=== PATIENT | female | born 1960 | race Caucasian/White ===

== ENCOUNTER 2021-03-30 11:40 | Outpatient (REF) | payer MEDICARE, MEDICAID, SELFPAY ==
[2021-03-30 13:04] LABS: MANUAL DIFF FLAG NO
[2021-03-30 13:11] LABS: Glucose Urine UA NEG (NEG); Leukocyte Esterase Urine NEG (NEG); Nitrite Urine NEG (NEG); PH 5.5 (5.0-8.0); Specific Gravity - Urine >= 1.030 (1.005-1.025); Urine Blood NEG (NEG); Urine Ketones NEG (NEG); Urine Protein NEG (NEG-TRACE)
[2021-03-30 13:14] LABS: Appearance Urine CLEAR; Color Urine YELLOW
[2021-03-30 13:21] LABS: Basophils Percent Auto 0.6 % (0-2); Eosinophils Absolute Auto 0.3 X10*3/uL (0.0-0.4); Eosinophils Percent Auto 5.3 % (0-4); Hematocrit 38.4 % (37-47); Hemoglobin 12.3 g/dl (12.0-16.0); Imm Gran Abs Auto 0.01 X10*3/uL (0.00-0.03); Imm Gran Pct Auto 0.2 % (0.0-0.4); Lymphocytes Absolute Auto 2.1 X10*3/uL (1.2-4.9); Lymphocytes Percent Auto 33.5 % (20-40); Mean Corpuscular Hemoglobin 29.8 pg (27.0-33.0); Mean Platelet Volume 10.9 fL (9.4-12.3); Monocytes Absolute Auto 0.6 X10*3/uL (0.1-1.2); Monocytes Percent Auto 10.2 % (2-11); Neutrophils Absolute Auto 3.2 X10*3/uL (2.0-8.3); Neutrophils Percent Auto 50.2 % (45-73); Platelet Count 280 X10*3/uL (160-400); Red Blood Count 4.13 X10*6/uL (4.20-5.50); Red Cell Distribution Width 13.1 % (11.0-16.0); White Blood Count 6.3 X10*3/uL (4.8-10.8)
[2021-03-30 13:31] LABS: Alanine Aminotransferase 17 U/L (0-31); Albumin Level 4.2 g/dL (3.5-5.0); Alkaline Phosphatase 61 U/L (39-117); Anion Gap 12 (12-20); Aspartate Amino Transferase 20 U/L (5-31); Bilirubin Total 0.3 mg/dL (0.0-1.0); Blood Urea Nitrogen 17 mg/dL (9-16); Calcium 9.4 mg/dL (8.4-10.2); Carbon Dioxide 28 mmol/L (22-29); Chloride 104 mmol/L (96-108); Cholesterol 190 mg/dL; Estimated Glomerular Filt Rate > 60; Glucose Random 88 mg/dL (60-115); HDL Cholesterol 64 mg/dL; LDL Cholesterol Calculated 109 mg/dl; Potassium 4.3 mmol/L (3.3-5.1); Sodium 140 mmol/L (135-145); Triglycerides 86 mg/dL
[2021-03-30 13:54] LABS: Free T4 (Free Thyroxine) 0.93 ng/dL (0.71-1.85); Thyroid Stimulating Hormone 1.51 uIU/mL (0.32-4.0); Vitamin D 25-OH Total 10.1 ng/mL (>30)
[2021-03-30 14:00] LABS: Vitamin B12 223 pg/mL (200-900)
== END 2021-03-30 11:41 | disposition home or self-care (01) ==
LOC: HO.LAB 11:40
PROVIDERS: PCP Internal Medicine; Visit Provider Internal Medicine
DX: I10 Essential (primary) hypertension (principal); E78.00 Pure hypercholesterolemia, unspecified; R30.0 Dysuria
CPT/HCPCS: 36415; 80053; 80061; 81003; 82306; 82607; 82746; 84439; 84443; 85025

== ENCOUNTER → 2021-07-26 12:53 | Outpatient (REF) | payer MEDICARE, MEDICAID, SELFPAY | LOC: HO.SL 12:53 | PROVIDERS: PCP Internal Medicine; Visit Provider Internal Medicine | DX: G47.33 Obstructive sleep apnea (adult) (pediatric) (principal) | CPT/HCPCS: 95806 ==

== ENCOUNTER 2021-09-27 11:20 | Outpatient (REF) | payer MEDICARE, MEDICAID, SELFPAY ==
--- NOTE | ~2021-09-27 | XR_ITS ---
EXAMINATION: XR KNEE, LEFT CLINICAL INFORMATION: Pain COMPARISON: Previous x-ray August 2013 TECHNIQUE: Four views of the left knee. FINDINGS: Bone alignment is normal. No fracture or dislocation is seen. There is mild medial femoral tibial joint space narrowing. There are osteophytes at the patellofemoral joint. There is a small joint effusion. XR/XR knee LT 2V IMPRESSION: Mild degenerative changes.
== END 2021-09-27 11:21 | disposition home or self-care (01) ==
LOC: HO.XRAY 11:20
PROVIDERS: Visit Provider Internal Medicine
DX: M25.562 Pain in left knee (principal)
CPT/HCPCS: 73560

== ENCOUNTER → 2021-10-19 09:41 | Outpatient (BNVA) | payer MEDICARE, MEDICAID, SELFPAY | PROVIDERS: PCP Internal Medicine; Visit Provider Physician Assistant | DX: M17.12 Unilateral primary osteoarthritis, left knee (principal) | CPT/HCPCS: 20610; 99202; J1040 ==

== ENCOUNTER 2021-10-24 09:54 | Outpatient (REF) | payer MEDICARE, MEDICAID, SELFPAY ==
--- NOTE | ~2021-10-24 | XR_ITS ---
EXAMINATION: XR WRIST, LEFT CLINICAL INFORMATION: Pain COMPARISON: None TECHNIQUE: 4 views of the left wrist. FINDINGS: The bones and soft tissues are normal. No fracture. Alignment is anatomic with normal joint spaces. No erosions or abnormal soft tissue calcifications. XR/XR wrist LT 2V IMPRESSION: Normal left wrist.
== END 2021-10-24 09:55 | disposition home or self-care (01) ==
LOC: HO.XRAY 09:54
PROVIDERS: PCP Internal Medicine; Visit Provider Internal Medicine
DX: M25.532 Pain in left wrist (principal)
CPT/HCPCS: 73100

== ENCOUNTER → 2021-11-02 09:54 | Outpatient (BNVA) | payer MEDICARE, MEDICAID, SELFPAY | PROVIDERS: PCP Internal Medicine; Visit Provider Internal Medicine | DX: G47.33 Obstructive sleep apnea (adult) (pediatric) (principal); J45.909 Unspecified asthma, uncomplicated; E66.01 Morbid (severe) obesity due to excess calories; Z68.43 Body mass index [BMI] 50.0-59.9, adult | CPT/HCPCS: 99202 ==

== ENCOUNTER → 2022-01-31 08:50 | Outpatient (BNVA) | payer MEDICARE, MEDICAID, SELFPAY | PROVIDERS: PCP Internal Medicine; Visit Provider Internal Medicine | DX: J45.909 Unspecified asthma, uncomplicated (principal); G47.33 Obstructive sleep apnea (adult) (pediatric); E66.01 Morbid (severe) obesity due to excess calories | CPT/HCPCS: 99212 ==

== ENCOUNTER 2022-02-01 11:53 | Outpatient (REF) | payer MEDICARE, MEDICAID, SELFPAY ==
--- NOTE | ~2022-02-01 | XR_ITS ---
EXAMINATION: XR LUMBOSACRAL SPINE CLINICAL INFORMATION: Pain COMPARISON: Previous x-ray October 2017 TECHNIQUE: Three views of the lumbosacral spine. FINDINGS: Bone alignment is normal. No fracture or dislocation is seen. There is degenerative spondylosis of the lower thoracic spine. There is degenerative disc disease at L4-L5 and L5-S1. There is lower lumbar spine facet arthritis. XR/XR lumbar spine 2-3V IMPRESSION: Degenerative changes.
[2022-02-01 14:14] LABS: Appearance Urine CLEAR; Color Urine YELLOW; Glucose Urine UA NEG (NEG); Leukocyte Esterase Urine NEG (NEG); Nitrite Urine NEG (NEG); PH 5.5 (5.0-8.0); Urine Blood NEG (NEG); Urine Ketones NEG (NEG); Urine Protein NEG (NEG-TRACE)
== END 2022-02-01 11:54 | disposition home or self-care (01) ==
LOC: HO.XRAY 11:53
PROVIDERS: PCP Internal Medicine; Visit Provider Internal Medicine
DX: M54.9 Dorsalgia, unspecified (principal); N39.0 Urinary tract infection, site not specified
CPT/HCPCS: 72100; 81003

== ENCOUNTER 2022-10-19 13:52 | Outpatient (REF) | payer MEDICARE, MEDICAID, SELFPAY ==
--- NOTE | ~2022-10-19 | XR_ITS ---
EXAMINATION: XR KNEE, LEFT CLINICAL INFORMATION: Pain COMPARISON: 09/27/2021 TECHNIQUE: Two views of the left knee. FINDINGS: No acute fracture or dislocation. There is narrowing of the lateral and patellofemoral compartments and tricompartmental osteophytosis as well as subchondral cystic changes. No large effusion. XR/XR knee LT 2V IMPRESSION: Moderate degenerative changes of the left knee joint.
== END 2022-10-19 13:53 | disposition home or self-care (01) ==
LOC: HO.XRAY 13:52
PROVIDERS: PCP Internal Medicine; Visit Provider Internal Medicine
DX: M25.562 Pain in left knee (principal)
CPT/HCPCS: 73560

== ENCOUNTER → 2022-12-14 10:16 | Outpatient (BNVA) | payer MEDICARE, MEDICAID, SELFPAY | PROVIDERS: PCP Internal Medicine; Visit Provider Physician Assistant | DX: M17.12 Unilateral primary osteoarthritis, left knee (principal) | CPT/HCPCS: 20610; 99212; J1040 ==

== ENCOUNTER 2023-05-25 07:34 | Outpatient (REF) | payer MEDICARE, MEDICAID, SELFPAY | END 2023-05-25 07:35 | disposition home or self-care (01) | LOC: HO.LAB 07:34 | PROVIDERS: PCP Internal Medicine; Visit Provider Internal Medicine | DX: E03.9 Hypothyroidism, unspecified (principal); E78.5 Hyperlipidemia, unspecified; N28.9 Disorder of kidney and ureter, unspecified; D64.9 Anemia, unspecified | CPT/HCPCS: 36415; 80053; 80061; 84443; 85025 ==

== ENCOUNTER 2023-08-28 10:53 | Outpatient (AMB) | payer MEDICARE, MEDICAID, SELFPAY ==
[2023-08-28 09:47] VITALS: BP 124/70; PULSE 71; O2SAT 98; BMI 44.2
--- NOTE | 2023-08-28 09:47 | MHC.PC.OV ---
Vital Signs 08/28/23 09:47 Height 5 ft 8 in Blood Pressure Location Lt brachial Position Sitting Pulse Source Pulse Oximeter Oxygen Delivery Method Room Air Intake Visit Reasons: 3 month f/u Allergies amoxicillin Allergy (Unknown, Verified 05/20/23 09:56) Nausea cephalexin [Keflex] Allergy (Unknown, Verified 05/20/23 09:56) stomach upset Codeine Allergy (Unknown, Uncoded 05/20/23 09:56) Dizziness shellfish Allergy (Unknown, Uncoded 05/20/23 09:56) hives Tobacco use date assessed: 05/20/23 [facility] Medical History Anxiety and depression Asthma Back pain Lumbar degenerative disc disease Morbid (severe) obesity due to excess calories Morbid obesity Obesity Obstructive sleep apnea MARIE (obstructive sleep apnea) Osteoarthritis Surgical History History of section Family History Mother Mental health disorder Father Mental health disorder Other Substance use disorder Social History Housing: Apartment Alcohol intake: never Patient Tobacco Use Status: Never used Tobacco e-Cigarette/Vaping Use: Never Used Second Hand Smoke Exposure: No service: No Current occupational status: disabled Current occupation: rt handed Cognitive needs: No Hearing needs: No Vision needs: Yes Questionnaire Thrive Questionnaire Date Thrive assessed: 03/12/22 NERISSA-7 AMB Questionnaire NERISSA-7 Date NERISSA - 7 assessed: 02/19/23 Source: Developed by Drs. Adrian Soto, Candy Lynn, Urban Mccarthy and colleagues, with an educational akila from [employer]. Physical exam (Primary Care) Tobacco/Smoking Status: Tobacco use Status Tobacco use date assessed 05/20/23 05/20/23 10:00 Patient Tobacco Use Status Never used Tobacco 05/20/23 10:00 e-Cigarette/Vaping Use Never Used 05/20/23 10:00 Thrive Assessment: Date of Thrive Assessment Date Thrive assessed 03/12/22 05/20/23 10:00 Coding
--- NOTE | 2023-08-28 10:55 | MHC.PC.OV ---
Vital Signs 08/28/23 09:47 Height 5 ft 8 in Weight 291 lb BMI 44.2 BP 124/70 Blood Pressure Location Lt brachial Position Sitting Pulse 71 Pulse Source Pulse Oximeter Pulse Oximetry (%) 98 Oxygen Delivery Method Room Air Intake Visit Reasons: 3 month f/u Allergies amoxicillin Allergy (Unknown, Verified 08/28/23 10:56) Nausea cephalexin [Keflex] Allergy (Unknown, Verified 08/28/23 10:56) stomach upset Codeine Allergy (Unknown, Uncoded 08/28/23 10:56) Dizziness shellfish Allergy (Unknown, Uncoded 08/28/23 10:56) hives Medication List - Last Reconciled 08/28/23 by Charlie Sanchez MD albuterol sulfate 90 mcg/actuation (Proventil HFA) 2 puffs inhalation Q4-6H PRN celecoxib 200 mg PO BID cyclobenzaprine 10 mg PO TID fexofenadine 180 mg PO DAILY 90 days fluticasone propionate 220 mcg/actuation (Flovent HFA) 2 puffs inhalation BID methylprednisolone (Medrol (Scott)) PO PER PKG DIR montelukast 10 mg PO DAILY naproxen (Naprosyn) 500 mg PO BID PRN Tobacco use date assessed: 05/20/23 Fall risk assessment: No Falls in past year Last assessed Fall Risk: 08/28/23 Dental Screening Dental Screen Date: 08/28/23 Did you have a dental visit in the last 12 months?: No Did you have a dental problem in the last 6 months where you did not have access to dental care?: No Was dental information given to patient?: Patient has dentist HPI 3 month f/u HPI Details asthma obesity and osteoarthritis; doing well and cont to lose weight PFSH Medical History MARIE (obstructive sleep apnea) Morbid (severe) obesity due to excess calories Morbid obesity Back pain Anxiety and depression Osteoarthritis Obstructive sleep apnea Lumbar degenerative disc disease Asthma Obesity Surgical History History of section Family History Mother Mental health disorder Father Mental health disorder Other Substance use disorder Social History Housing: Apartment Alcohol intake: never Patient Tobacco Use Status: Never used Tobacco e-Cigarette/Vaping Use: Never Used Second Hand Smoke Exposure: No service: No Current occupational status: disabled Current occupation: rt handed Cognitive needs: No Hearing needs: No Vision needs: Yes Questionnaire PHQ-9 Over the last 2 weeks, how often have you been bothered by any of the following problems? Depression Screening Interpretation: Negative Depression Screening Done: Yes Source: Developed by Drs. Adrian Soto, Candy Lynn, Urban Mccarthy and colleagues, with an educational akila from [email or web address]. Thrive Questionnaire Date Thrive assessed: 08/28/23 I am a: Patient What is your living situation today?: I have a steady place to live Within the past 12 months, did the food you bought not last and you didn't have the money to get more?: Never true Within the past 12 months, did you worry whether your food would run out before you got money to buy more?: Never true Do you have trouble paying for medicines?: No Do you have trouble getting transportation to medical appointments?: No Do you have trouble paying your heating and electricity bill?: No Do you have trouble taking care of your child, family member or friend?: No Do you have trouble with day-to-day activities such as bathing, preparing meals, shopping, managing finances, etc.?: No Are you currently unemployed and looking for a job?: No Are you interested in more education?: No Please select the resources that you would like help with: None AUDIT C Alcohol Use Questionnaire (AUDIT-C) 1. How often do you have a drink containing alcohol?: Never Total Score: 0 Score Reviewed/Action Taken: Yes NERISSA-7 AMB Questionnaire NERISSA-7 Date NERISSA - 7 assessed: 02/19/23 Source: Developed by Drs. Adrian Soto, Candy Lynn, Urban Mccarthy and colleagues, with an educational akila from [email or web address]. Review of Systems Const Denies chills, Denies headache(s) and Denies weight loss ENT Denies headache(s) Card Denies chest pain, Denies syncope, Denies irregular heart rhythm and Denies dyspnea Resp Denies chest congestion, Denies cough and Denies dyspnea GI Denies abdominal pain, Denies change in stool character, Denies nausea and Denies vomiting Musc Denies deformity and Denies joint swelling Neuro Denies syncope and Denies headache(s) Physical exam (Primary Care) Vital Signs: Last Vital Signs Pulse 71 08/28/23 09:47 BP 124/70 08/28/23 09:47 Pulse Ox 98 08/28/23 09:47 Oxygen Delivery Method Room Air 08/28/23 09:47 BMI result Body Mass Index 44.2 Tobacco/Smoking Status: Tobacco use Status Tobacco use date assessed 05/20/23 08/28/23 11:02 Patient Tobacco Use Status Never used Tobacco 08/28/23 11:02 e-Cigarette/Vaping Use Never Used 08/28/23 11:02 Depression Screening Interpretation: Negative Thrive Assessment: Date of Thrive Assessment Date Thrive assessed 08/28/23 08/28/23 11:02 Const General: cooperative, comfortable, no acute distress and alert Neck Neck: Yes no lymphadenopathy Thyroid: Thyroid normal Resp Effort & Inspection: normal respiratory effort Auscultation: clear to auscultation bilaterally Percussion: percussion normal Cardio Jugular venous distension: no JVD Palpation: normal PMI Rate: regular rate Rhythm: regular rhythm Heart sounds: S1 normal heart sound present and S2 normal heart sound present GI Inspection: Yes normal to inspection Palpation (GI): No hepatosplenomegaly present Skin General skin exam: no rashes or lesions noted Extrem General: Yes no clubbing, cyanosis or edema Assessment and Plan Assessment & Plan (1) Morbid obesity: Code(s): E66.01 - Morbid (severe) obesity due to excess calories Plan: stable; cont to lose weight (2) Asthma: Code(s): J45.909 - Unspecified asthma, uncomplicated Plan: stable; same rx (3) Osteoarthritis of left knee: Code(s): M17.12 - Unilateral primary osteoarthritis, left knee Plan: stable; same rx Coding Level of Care Code Est Pt Level 3 (93334) Diagnoses Morbid obesity E66.01 Asthma J45.909 Osteoarthritis of left knee M17.12
== END 2023-08-28 12:20 | disposition home or self-care (01) ==
PROVIDERS: PCP Internal Medicine; Visit Provider Internal Medicine
DX: J45.909 Unspecified asthma, uncomplicated (principal); E66.01 Morbid (severe) obesity due to excess calories; M17.12 Unilateral primary osteoarthritis, left knee; Z68.41 Body mass index [BMI] 40.0-44.9, adult
CPT/HCPCS: 99213

== ENCOUNTER 2023-10-21 11:08 | Outpatient (AMB) | payer MEDICARE, MEDICAID, SELFPAY ==
[2023-10-21 11:13] VITALS: BP 176/98; PULSE 65; O2SAT 98; BMI 44.5
--- NOTE | 2023-10-21 11:13 | MHC.PC.OV ---
Vital Signs 10/21/23 11:13 Height 5 ft 8 in Weight 293 lb BMI 44.5 BP 176/98 H Blood Pressure Location Lt brachial Position Sitting Pulse 65 Pulse Source Pulse Oximeter Pulse Oximetry (%) 98 Oxygen Delivery Method Room Air Intake Visit Reasons: sinus problems, SOB Regional Sales Coordinator Required: No Pasting Machine Operator: Not Required per policy Accompanied by: Self / Same As Patient Allergies amoxicillin Allergy (Unknown, Verified 10/21/23 11:14) Nausea cephalexin [Keflex] Allergy (Unknown, Verified 10/21/23 11:14) stomach upset Codeine Allergy (Unknown, Uncoded 10/21/23 11:14) Dizziness shellfish Allergy (Unknown, Uncoded 10/21/23 11:14) hives Tobacco use date assessed: 05/20/23 Fall risk assessment: No Falls in past year Last assessed Fall Risk: 10/21/23 Dental Screening Dental Screen Date: 10/21/23 Did you have a dental visit in the last 12 months?: Yes Did you have a dental problem in the last 6 months where you did not have access to dental care?: No Was dental information given to patient?: Patient has dentist HPI sinus problems, SOB HPI Details cough and wheezing for a few days PFSH Medical History MARIE (obstructive sleep apnea) Morbid (severe) obesity due to excess calories Morbid obesity Back pain Anxiety and depression Osteoarthritis Obstructive sleep apnea Lumbar degenerative disc disease Asthma Obesity Surgical History History of section Family History Mother Mental health disorder Father Mental health disorder Other Substance use disorder Social History Housing: Apartment Alcohol intake: never Patient Tobacco Use Status: Never used Tobacco e-Cigarette/Vaping Use: Never Used Second Hand Smoke Exposure: No service: No Current occupational status: disabled Current occupation: rt handed Cognitive needs: No Hearing needs: No Vision needs: Yes Questionnaire Thrive Questionnaire Date Thrive assessed: 08/28/23 NERISSA-7 AMB Questionnaire NERISSA-7 Date NERISSA - 7 assessed: 02/19/23 Source: Developed by Candy OcampoW. Shane, Urban Mccarthy and colleagues, with an educational akila from [employer]. Review of Systems Const Denies chills, Denies headache(s) and Denies weight loss ENT Denies headache(s) Card Denies chest pain, Denies syncope and Denies irregular heart rhythm GI Denies abdominal pain, Denies change in stool character, Denies nausea and Denies vomiting Musc Denies deformity and Denies joint swelling Neuro Denies syncope and Denies headache(s) Physical exam (Primary Care) Vital Signs: Last Vital Signs Pulse 65 10/21/23 11:13 BP 176/98 H 10/21/23 11:13 Pulse Ox 98 10/21/23 11:13 Oxygen Delivery Method Room Air 10/21/23 11:13 BMI result Body Mass Index 44.5 Tobacco/Smoking Status: Tobacco use Status Tobacco use date assessed 05/20/23 10/21/23 11:17 Patient Tobacco Use Status Never used Tobacco 10/21/23 11:17 e-Cigarette/Vaping Use Never Used 10/21/23 11:17 Thrive Assessment: Date of Thrive Assessment Date Thrive assessed 08/28/23 10/21/23 11:17 Const General: cooperative, comfortable, no acute distress and alert Neck Neck: Yes no lymphadenopathy Thyroid: Thyroid normal Resp Effort & Inspection: normal respiratory effort Percussion: percussion normal Cardio Jugular venous distension: no JVD Palpation: normal PMI Rate: regular rate Rhythm: regular rhythm Heart sounds: S1 normal heart sound present and S2 normal heart sound present GI Inspection: Yes normal to inspection Palpation (GI): No hepatosplenomegaly present Skin General skin exam: no rashes or lesions noted Extrem General: Yes no clubbing, cyanosis or edema Assessment and Plan Assessment & Plan (1) Asthma: Code(s): J45.909 - Unspecified asthma, uncomplicated Plan: rx sent Medications: New azithromycin take 500 mg today (day 1), then 250 mg for 4 days (days 2-5) PO 6 tabs 0RF Refilled methylprednisolone (Medrol (Scott)) PO PER PKG DIR 21 ea 0RF Coding Level of Care Code Est Pt Level 3 (58918) Diagnoses Asthma J45.909
== END 2023-10-21 11:29 | disposition home or self-care (01) ==
PROVIDERS: PCP Internal Medicine; Visit Provider Internal Medicine
DX: J45.909 Unspecified asthma, uncomplicated (principal)
CPT/HCPCS: 99213

== ENCOUNTER 2023-12-03 14:01 | Outpatient (AMB) | payer MEDICARE, MEDICAID, SELFPAY ==
[2023-12-03 14:06] VITALS: BP 148/80; PULSE 86; O2SAT 98; BMI 42.4
--- NOTE | 2023-12-03 14:06 | A.OFFPC_ITS ---
Vital Signs 12/03/23 14:06 Height 5 ft 8 in Weight 279 lb BMI 42.4 BP 148/80 H Blood Pressure Location Lt brachial Position Sitting Pulse 86 Pulse Source Pulse Oximeter Pulse Oximetry (%) 98 Oxygen Delivery Method Room Air Intake Visit Reasons: [facility] 11/22/23- high BP Full Decator Operator Required: No Preparatory Technician: Not Required per policy Accompanied by: Self / Same As Patient Allergies amoxicillin Allergy (Unknown, Verified 12/03/23 14:06) Nausea cephalexin [Keflex] Allergy (Unknown, Verified 12/03/23 14:06) stomach upset Codeine Allergy (Unknown, Uncoded 12/03/23 14:06) Dizziness shellfish Allergy (Unknown, Uncoded 12/03/23 14:06) hives Medication List - Last Reconciled 12/04/23 by Charlie Sanchez MD albuterol sulfate 90 mcg/actuation (Proventil HFA) 2 puffs inhalation Q4-6H PRN azithromycin take 500 mg today (day 1), then 250 mg for 4 days (days 2-5) PO celecoxib 200 mg PO BID cyclobenzaprine 10 mg PO TID fexofenadine 180 mg PO DAILY 90 days fluticasone propionate 220 mcg/actuation (Flovent HFA) 2 puffs inhalation BID lorazepam 1 mg PO BID PRN methylprednisolone (Medrol (Scott)) PO PER PKG DIR montelukast 10 mg PO DAILY naproxen (Naprosyn) 500 mg PO BID PRN Tobacco use date assessed: 12/03/23 Fall risk assessment: No Falls in past year Last assessed Fall Risk: 12/03/23 Dental Screening Dental Screen Date: 12/03/23 Did you have a dental visit in the last 12 months?: No Did you have a dental problem in the last 6 months where you did not have access to dental care?: No Was dental information given to patient?: Patient has dentist HPI [facility] 11/22/23- high BP HPI Details anxiety; family stress PFSH Medical History MARIE (obstructive sleep apnea) Morbid (severe) obesity due to excess calories Morbid obesity Back pain Anxiety and depression Osteoarthritis Obstructive sleep apnea Lumbar degenerative disc disease Asthma Obesity Surgical History History of section Family History Mother Mental health disorder Father Mental health disorder Other Substance use disorder Social History Housing: Apartment Alcohol intake: never Patient Tobacco Use Status: Never used Tobacco e-Cigarette/Vaping Use: Never Used Second Hand Smoke Exposure: No service: No Current occupational status: disabled Current occupation: rt handed Cognitive needs: No Hearing needs: No Vision needs: Yes Questionnaire PHQ-9 Over the last 2 weeks, how often have you been bothered by any of the following problems? 1. Little interest or pleasure in doing things: more than half the days 2. Feeling down, depressed, or hopeless: more than half the days 3. Trouble falling or staying asleep, or sleeping too much: more than half the days 4. Feeling tired or having little energy: more than half the days 5. Poor appetite or overeating: several days 6. Feeling bad about yourself - or that you are a failure or have let yourself or your family down: not at all 7. Trouble concentrating on things, such as reading the newspaper or watching television: not at all 8. Moving or speaking so slowly that other people could have noticed. Or the opposite - being so fidgety or restless that you have been moving around a lot more than usual: not at all 9. Thoughts that you would be better off or of hurting yourself in some way: not at all Total score: 9 Depression Screening Interpretation: Negative Depression Screening Done: Yes 71688 - PHQ-9 Billing: Yes Source: Developed by Drs. Adrian Soto, Candy Lynn, Urban Mccarthy and colleagues, with an educational akila from [employer]. Thrive Questionnaire Date Thrive assessed: 12/03/23 I am a: Patient What is your living situation today?: I have a steady place to live Within the past 12 months, did the food you bought not last and you didn't have the money to get more?: Never true Within the past 12 months, did you worry whether your food would run out before you got money to buy more?: Never true Do you have trouble paying for medicines?: No Do you have trouble getting transportation to medical appointments?: No Do you have trouble paying your heating and electricity bill?: No Do you have trouble taking care of your child, family member or friend?: No Do you have trouble with day-to-day activities such as bathing, preparing meals, shopping, managing finances, etc.?: No Are you currently unemployed and looking for a job?: No Are you interested in more education?: No Please select the resources that you would like help with: None AUDIT C Alcohol Use Questionnaire (AUDIT-C) 1. How often do you have a drink containing alcohol?: Never Total Score: 0 Score Reviewed/Action Taken: Yes NERISSA-7 AMB Questionnaire NERISSA-7 Date NERISSA - 7 assessed: 12/03/23 Feeling nervous, anxious, or on edge: 3 = Nearly every day Not being able to stop or control worryin = Nearly every day Worrying too much about different things: 3 = Nearly every day Trouble relaxin = More than half the days Being so restless that it is hard to sit still: 2 = More than half the days Becoming easily annoyed or irritable: 2 = More than half the days Feeling afraid as if something awful might happen: 2 = More than half the days Total NERISSA-7 score (0-4 normal; 5-9 mild; 10-14 moderate; 15-21 severe): 17 Source: Developed by Drs. Adrian Soto, Candy Lynn, Urban Mccarthy and colleagues, with an educational akila from [employer]. NERISSA-7 Assessment Billing NERISSA-7 Assessment Tool: NERISSA-7 Assessment 84749 (known condition) Review of Systems Const Denies chills, Denies headache(s) and Denies weight loss ENT Denies headache(s) Card Denies chest pain, Denies syncope, Denies irregular heart rhythm and Denies dyspnea Resp Denies chest congestion, Denies cough and Denies dyspnea GI Denies abdominal pain, Denies change in stool character, Denies nausea and Denies vomiting Musc Denies deformity and Denies joint swelling Neuro Denies syncope and Denies headache(s) Physical exam (Primary Care) Vital Signs: Last Vital Signs Pulse 86 12/03/23 14:06 BP 148/80 H 12/03/23 14:06 Pulse Ox 98 12/03/23 14:06 Oxygen Delivery Method Room Air 12/03/23 14:06 BMI result Body Mass Index 42.4 Tobacco/Smoking Status: Tobacco use Status Tobacco use date assessed 12/03/23 12/03/23 14:08 Patient Tobacco Use Status Never used Tobacco 12/03/23 14:06 e-Cigarette/Vaping Use Never Used 12/03/23 14:06 PHQ-9: PHQ-9 Score PHQ-9: Total score 9 12/03/23 14:17 Depression Screening Interpretation: Negative Thrive Assessment: Date of Thrive Assessment Date Thrive assessed 12/03/23 12/03/23 14:08 Const General: cooperative, comfortable, no acute distress and alert Neck Neck: Yes no lymphadenopathy Thyroid: Thyroid normal Resp Effort & Inspection: normal respiratory effort Auscultation: clear to auscultation bilaterally Percussion: percussion normal Cardio Jugular venous distension: no JVD Palpation: normal PMI Rate: regular rate Rhythm: regular rhythm Heart sounds: S1 normal heart sound present and S2 normal heart sound present GI Inspection: Yes normal to inspection Palpation (GI): No hepatosplenomegaly present Skin General skin exam: no rashes or lesions noted Extrem General: Yes no clubbing, cyanosis or edema Assessment and Plan Assessment & Plan (1) Anxiety: Code(s): F41.9 - Anxiety disorder, unspecified Plan: rx Medications: New lorazepam 1 mg PO BID PRN 60 tabs 0RF anxiety Coding Level of Care Code Est Pt Level 3 (13902) Diagnoses Anxiety F41.9 Additional Codes NERISSA-7 Assessment Billing - NERISSA-7 Assessment Tool: NERISSA-7 Assessment 08024 ([id number])
== END 2023-12-03 15:17 | disposition home or self-care (01) ==
PROVIDERS: PCP Internal Medicine; Visit Provider Internal Medicine
DX: F41.9 Anxiety disorder, unspecified (principal)
CPT/HCPCS: 99213

== ENCOUNTER 2024-01-20 10:01 | Outpatient (AMB) | payer MEDICARE, MEDICAID, SELFPAY ==
[2024-01-20 10:06] VITALS: BP 138/90; PULSE 68; O2SAT 99; BMI 42.1
--- NOTE | 2024-01-20 10:06 | MHC.PC.OV ---
Vital Signs 01/20/24 10:06 Height 5 ft 8 in Weight 277 lb BMI 42.1 BP 138/90 H Blood Pressure Location Lt brachial Position Sitting Pulse 68 Pulse Source Pulse Oximeter Pulse Oximetry (%) 99 Oxygen Delivery Method Room Air Intake Visit Reasons: 3mth f/u Provider Service Representative Required: No Grades 9 Through 12 Teacher: Not Required per policy Accompanied by: Self / Same As Patient Allergies amoxicillin Allergy (Unknown, Verified 01/20/24 10:07) Nausea cephalexin [Keflex] Allergy (Unknown, Verified 01/20/24 10:07) stomach upset Codeine Allergy (Unknown, Uncoded 01/20/24 10:07) Dizziness shellfish Allergy (Unknown, Uncoded 01/20/24 10:07) hives Medication List - Last Reconciled 01/20/24 by Charlie Sanchez MD albuterol sulfate 90 mcg/actuation (Proventil HFA) 2 puffs inhalation Q4-6H PRN celecoxib 200 mg PO BID cyclobenzaprine 10 mg PO TID fexofenadine 180 mg PO DAILY 90 days fluticasone propionate 220 mcg/actuation (Flovent HFA) 2 puffs inhalation BID lorazepam 1 mg PO BID PRN methylprednisolone (Medrol (Scott)) PO PER PKG DIR montelukast 10 mg PO DAILY naproxen (Naprosyn) 500 mg PO BID PRN Tobacco use date assessed: 12/03/23 Fall risk assessment: No Falls in past year Last assessed Fall Risk: 01/20/24 Dental Screening Dental Screen Date: 01/20/24 Did you have a dental visit in the last 12 months?: Yes Did you have a dental problem in the last 6 months where you did not have access to dental care?: No Was dental information given to patient?: Patient has dentist HPI 3mth f/u HPI Details asthma anxiety and osteoarthritis in knees; stable; under stress [facility] Medical History MARIE (obstructive sleep apnea) Morbid (severe) obesity due to excess calories Morbid obesity Back pain Anxiety and depression Osteoarthritis Obstructive sleep apnea Lumbar degenerative disc disease Asthma Obesity Surgical History History of section Family History Mother Mental health disorder Father Mental health disorder Other Substance use disorder Social History Housing: Apartment Alcohol intake: never Patient Tobacco Use Status: Never used Tobacco e-Cigarette/Vaping Use: Never Used Second Hand Smoke Exposure: No service: No Current occupational status: disabled Current occupation: rt handed Cognitive needs: No Hearing needs: No Vision needs: Yes Questionnaire Thrive Questionnaire Date Thrive assessed: 12/03/23 NERISSA-7 AMB Questionnaire NERSISA-7 Date NERISSA - 7 assessed: 12/03/23 Source: Developed by Drs. Adrian Soto, Candy Lynn, Urban Mccarthy and colleagues, with an educational akila from [email or web address]. Review of Systems Const Denies chills, Denies headache(s) and Denies weight loss ENT Denies headache(s) Card Denies chest pain, Denies syncope, Denies irregular heart rhythm and Denies dyspnea Resp Denies chest congestion, Denies cough and Denies dyspnea GI Denies abdominal pain, Denies change in stool character, Denies nausea and Denies vomiting Musc Denies deformity and Denies joint swelling Neuro Denies syncope and Denies headache(s) Physical exam (Primary Care) Vital Signs: Last Vital Signs Pulse 68 01/20/24 10:06 BP 138/90 H 01/20/24 10:06 Pulse Ox 99 01/20/24 10:06 Oxygen Delivery Method Room Air 01/20/24 10:06 BMI result Body Mass Index 42.1 Tobacco/Smoking Status: Tobacco use Status Tobacco use date assessed 12/03/23 01/20/24 10:07 Patient Tobacco Use Status Never used Tobacco 01/20/24 10:07 e-Cigarette/Vaping Use Never Used 01/20/24 10:07 Thrive Assessment: Date of Thrive Assessment Date Thrive assessed 12/03/23 01/20/24 10:07 Const General: cooperative, comfortable, no acute distress and alert Neck Neck: Yes no lymphadenopathy Thyroid: Thyroid normal Resp Effort & Inspection: normal respiratory effort Auscultation: clear to auscultation bilaterally Percussion: percussion normal Cardio Jugular venous distension: no JVD Palpation: normal PMI Rate: regular rate Rhythm: regular rhythm Heart sounds: S1 normal heart sound present and S2 normal heart sound present GI Inspection: Yes normal to inspection Palpation (GI): No hepatosplenomegaly present Skin General skin exam: no rashes or lesions noted Extrem General: Yes no clubbing, cyanosis or edema Assessment and Plan Assessment & Plan (1) Anxiety: Code(s): F41.9 - Anxiety disorder, unspecified Plan: stable; same rx (2) Osteoarthritis of left knee: Code(s): M17.12 - Unilateral primary osteoarthritis, left knee Plan: stable; same rx (3) Hypertension: Code(s): I10 - Essential (primary) hypertension Plan: stable; same rx Medications: Refilled lorazepam 1 mg PO BID PRN 60 tabs 0RF anxiety Coding Level of Care Code Est Pt Level 4 (31888) Diagnoses Anxiety F41.9 Osteoarthritis of left knee M17.12 Hypertension I10
== END 2024-01-20 11:14 | disposition home or self-care (01) ==
PROVIDERS: PCP Internal Medicine; Visit Provider Internal Medicine
DX: I10 Essential (primary) hypertension (principal); F41.9 Anxiety disorder, unspecified; M17.12 Unilateral primary osteoarthritis, left knee
CPT/HCPCS: 99214

== ENCOUNTER 2024-01-30 10:48 | Outpatient (AMB) | payer MEDICARE, MEDICAID, SELFPAY ==
[2024-01-30 10:50] VITALS: BP 142/90; PULSE 86; O2SAT 98; BMI 41.8
--- NOTE | 2024-01-30 10:50 | MHC.PC.OV ---
Vital Signs 01/30/24 10:50 Height 5 ft 8 in Weight 275 lb BMI 41.8 BP 142/90 H Blood Pressure Location Lt brachial Position Sitting Pulse 86 Pulse Source Pulse Oximeter Pulse Oximetry (%) 98 Oxygen Delivery Method Room Air Intake Visit Reasons: ? of asthma Linoleum Floor Installer Required: No Foot Drill Operator: Not Required per policy Accompanied by: Self / Same As Patient Allergies amoxicillin Allergy (Unknown, Verified 01/30/24 10:50) Nausea cephalexin [Keflex] Allergy (Unknown, Verified 01/30/24 10:50) stomach upset Codeine Allergy (Unknown, Uncoded 01/30/24 10:50) Dizziness shellfish Allergy (Unknown, Uncoded 01/30/24 10:50) hives Medication List - Last Reconciled 01/30/24 by Charlie Sanchez MD celecoxib 200 mg PO BID cyclobenzaprine 10 mg PO TID fexofenadine 180 mg PO DAILY 90 days fluticasone propionate 220 mcg/actuation 2 puffs inhalation BID lorazepam 1 mg PO BID PRN methylprednisolone (Medrol (Scott)) PO PER PKG DIR montelukast 10 mg PO DAILY naproxen (Naprosyn) 500 mg PO BID PRN Tobacco use date assessed: 12/03/23 Fall risk assessment: No Falls in past year Last assessed Fall Risk: 01/30/24 HPI ? of asthma HPI Details flare up of her asthma for 3 days PFSH Medical History MARIE (obstructive sleep apnea) Morbid (severe) obesity due to excess calories Morbid obesity Back pain Anxiety and depression Osteoarthritis Obstructive sleep apnea Lumbar degenerative disc disease Asthma Obesity Surgical History History of section Family History Mother Mental health disorder Father Mental health disorder Other Substance use disorder Social History Housing: Apartment Alcohol intake: never Patient Tobacco Use Status: Never used Tobacco e-Cigarette/Vaping Use: Never Used Second Hand Smoke Exposure: No service: No Current occupational status: disabled Current occupation: rt handed Cognitive needs: No Hearing needs: No Vision needs: Yes Questionnaire Thrive Questionnaire Date Thrive assessed: 12/03/23 NERISSA-7 AMB Questionnaire NERISSA-7 Date NERISSA - 7 assessed: 12/03/23 Source: Developed by Drs. Adrian Soto, Candy Lynn, Urban Mccarthy and colleagues, with an educational akila from [employer]. Review of Systems Const Denies chills, Denies headache(s) and Denies weight loss ENT Denies headache(s) Card Denies chest pain, Denies syncope, Denies irregular heart rhythm and Denies dyspnea Resp Denies chest congestion, Denies cough and Denies dyspnea GI Denies abdominal pain, Denies change in stool character, Denies nausea and Denies vomiting Musc Denies deformity and Denies joint swelling Neuro Denies syncope and Denies headache(s) Physical exam (Primary Care) Vital Signs: Last Vital Signs Pulse 86 01/30/24 10:50 BP 142/90 H 01/30/24 10:50 Pulse Ox 98 01/30/24 10:50 Oxygen Delivery Method Room Air 01/30/24 10:50 BMI result Body Mass Index 41.8 Tobacco/Smoking Status: Tobacco use Status Tobacco use date assessed 12/03/23 01/30/24 10:57 Patient Tobacco Use Status Never used Tobacco 01/30/24 10:57 e-Cigarette/Vaping Use Never Used 01/30/24 10:57 Thrive Assessment: Date of Thrive Assessment Date Thrive assessed 12/03/23 01/30/24 10:57 Const General: cooperative, comfortable, no acute distress and alert Neck Neck: Yes no lymphadenopathy Thyroid: Thyroid normal Resp Effort & Inspection: normal respiratory effort Auscultation: clear to auscultation bilaterally Percussion: percussion normal Cardio Jugular venous distension: no JVD Palpation: normal PMI Rate: regular rate Rhythm: regular rhythm Heart sounds: S1 normal heart sound present and S2 normal heart sound present GI Inspection: Yes normal to inspection Palpation (GI): No hepatosplenomegaly present Skin General skin exam: no rashes or lesions noted Extrem General: Yes no clubbing, cyanosis or edema Assessment and Plan Assessment & Plan (1) Asthma: Code(s): J45.909 - Unspecified asthma, uncomplicated Plan: rx sent Medications: New methylprednisolone (Medrol (Scott)) orally per package directions; PO PER PKG DIR 21 ea 0RF azithromycin take 500 mg today (day 1), then 250 mg for 4 days (days 2-5) orally; 6 tabs 0RF Changed From fluticasone propionate 220 mcg/actuation (Flovent HFA) 2 puffs inhalation BID 12 grams 7RF To fluticasone propionate 220 mcg/actuation 2 puffs inhalation BID 12 grams 7RF Coding Level of Care Code Est Pt Level 3 (52895) Diagnoses Asthma J45.909
== END 2024-01-30 12:39 | disposition home or self-care (01) ==
PROVIDERS: PCP Internal Medicine; Visit Provider Internal Medicine
DX: J45.901 Unspecified asthma with (acute) exacerbation (principal)
CPT/HCPCS: 99214

== ENCOUNTER 2024-02-23 08:16 | Emergency (ER) | payer MEDICARE, MEDICAID, SELFPAY ==
--- NOTE | 2024-02-23 | ECG_ITS ---
Test Reason : CHEST PAIN Blood Pressure : / mmHG Vent. Rate : 066 BPM Atrial Rate : 066 BPM P-R Int : 184 ms QRS Dur : 114 ms QT Int : 426 ms P-R-T Axes : 039 -20 034 degrees QTc Int : 446 ms Normal sinus rhythm Incomplete right bundle branch block Minimal voltage criteria for LVH, may be normal variant ( [place] product ) Borderline ECG No previous ECGs available Referred By: Generic ED Physician Electronically Signed By:ANNA HUDSON MD
--- NOTE | ~2024-02-23 | XR_ITS ---
EXAMINATION: XR CHEST CLINICAL INFORMATION: Chest pain. COMPARISON: Chest radiograph 02/06/2017. TECHNIQUE: 2 views of the chest were obtained. FINDINGS: No significant abnormality is noted involving the heart, lungs, mediastinum, bony thorax or soft tissues. XR/XR chest 2V IMPRESSION: Unremarkable examination.
[2024-02-23 08:26] VITALS: BP 133/84; PULSE 76; RESP 20; TEMP 37; O2SAT 100; BMI 40.3
[2024-02-23 08:49] LABS: MANUAL DIFF FLAG NO
[2024-02-23 08:52] LABS: Appearance Urine Cloudy; Color Urine Dark Yellow; Glucose Urine UA Negative (Negative); Leukocyte Esterase Urine Trace (Negative); Nitrite Urine Negative (Negative); PH 5.5 (5.0-9.0); Specific Gravity - Urine >= 1.030 (1.005-1.025); UMIC TRIGGER UACC YES; Urine Blood Negative (Negative); Urine Ketones Trace mg/dL (Negative); Urine Protein 30 (1+) mg/dL (Neg-Trace)
[2024-02-23 08:53] LABS: Basophils Percent Auto 0.8 % (0-2); Eosinophils Absolute Auto 0.6 X10*3/uL (0.0-0.4); Eosinophils Percent Auto 11.1 % (0-4); Hematocrit 41.8 % (37.0-47.0); Hemoglobin 13.9 g/dl (12.0-16.0); Imm Gran Abs Auto 0.02 X10*3/uL (0.00-0.03); Imm Gran Pct Auto 0.4 % (0.0-0.4); Lymphocytes Absolute Auto 1.7 X10*3/uL (1.2-4.9); Lymphocytes Percent Auto 34.4 % (20-40); Mean Corpuscular HGB Conc 33.3 g/dl (31.0-35.0); Mean Corpuscular Hemoglobin 29.9 pg (27.0-33.0); Mean Corpuscular Volume 89.9 fL (80.0-98.0); Mean Platelet Volume 10.2 fL (9.4-12.3); Monocytes Absolute Auto 0.5 X10*3/uL (0.1-1.2); Monocytes Percent Auto 9.7 % (2-11); Neutrophils Absolute Auto 2.2 x10*3/uL (2.0-8.3); Neutrophils Percent Auto 43.6 % (45-73); Platelet Count 266 X10*3/uL (160-400); Red Blood Count 4.65 X10*6/uL (4.20-5.50); Red Cell Distribution Width 13.4 % (11.0-16.0); White Blood Count 5.1 X10*3/uL (4.8-10.8)
[2024-02-23 09:07] LABS: Bacteria Urine 1+ (None Seen); RBC Urine 0-2 /HPF (0-2); Squamous Epithelial Cell Urine >20 /HPF (0-2); WBC Urine 0-5 /HPF (0-5)
[2024-02-23 09:10] LABS: COVID-19 Test Negative (Negative); IDNOW Serial# 152EDE1D
--- NOTE | 2024-02-23 09:40 | ED.PSYCH ---
HPI - Psych General Chief Complaint: Psychiatric Symptoms Stated Complaint: Chest pain Time Seen by Provider: 02/23/24 09:38 Source: patient Mode of arrival: ambulatory Limitations: no limitations History of Present Illness HPI Narrative: 63-year-old female history of bipolar disorder presents emergency room with 1 week of epigastric shoulder neck pain and severe anxiety. States she had a trauma 1 month ago she is on clonazepam and like to overdose on that. States she has not sleeping having increased shaking. Her main complaint is being anxious and not feeling well she states her chest pain and back pain has since resolved she denies any vomiting diarrhea shortness breast she states she has been taking medications she is accompanied with her ex- Related Data Previous Rx's ?Medication ?Instructions ?Recorded cyclobenzaprine 10 mg tablet 10 mg PO TID #90 tabs 02/17/21 fexofenadine 180 mg tablet 180 mg PO DAILY 90 days #90 tabs 06/12/21 montelukast 10 mg tablet 10 mg PO DAILY #30 tabs 03/16/22 celecoxib 200 mg capsule 200 mg PO BID #60 caps 11/05/22 naproxen 500 mg tablet (Naprosyn) 500 mg PO BID PRN pain #30 tabs 08/30/23 methylprednisolone 4 mg tablets in See Rx Instructions PO PER PKG DIR 10/21/23 a dose pack (Medrol (Scott)) #21 ea lorazepam 1 mg tablet 1 mg PO BID PRN anxiety #60 tabs 01/20/24 azithromycin 250 mg tablet See Rx Instructions PO .COMPLEX #6 01/30/24 tabs fluticasone propionate 220 2 puff inhalation BID #12 grams 01/30/24 mcg/actuation HFA aerosol inhaler methylprednisolone 4 mg tablets in See Rx Instructions PO PER PKG DIR 01/30/24 a dose pack (Medrol (Scott)) #21 ea Allergies Allergy/AdvReac Type Severity Reaction Status Date / Time amoxicillin Allergy Unknown Nausea Verified 02/23/24 08:32 cephalexin [Keflex] Allergy Unknown stomach Verified 02/23/24 08:32 upset Codeine Allergy Unknown Dizziness Uncoded 01/30/24 10:50 shellfish Allergy Unknown hives Uncoded 01/30/24 10:50 Review of Systems Review of Systems: Review of systems: General: Patient denies any fever chills recent illness or falls Musculoskeletal: Denies back pain or body aches or other injuries HEENT: denies headache, runny nose, ear pain Respiratory: denies shortness of breath, cough Cardiovascular: chest pain or palpitations : denies dysuria, frequency Abdomen: no nausea vomiting she has abdominal pain Extremities: no swelling, no pain Skin: no diaphoresis Yes all other systems are reviewed and are negative PMFSH Past Medical History Medical History MARIE (obstructive sleep apnea) Morbid (severe) obesity due to excess calories Morbid obesity Back pain Anxiety and depression Osteoarthritis Obstructive sleep apnea Lumbar degenerative disc disease Asthma Obesity Surgical History History of section Family History Family History Mother Mental health disorder Father Mental health disorder Other Substance use disorder Social History Social History Housing: Apartment Alcohol intake: never Patient Tobacco Use Status: Never used Tobacco Smoked in Last 30 Days: No e-Cigarette/Vaping Use: Never Used Second Hand Smoke Exposure: No Use of substances other than those prescribed or required for medical reasons: No Advance Directives: No Advance Directives Information Provided: Yes Patient : No service: No Current occupational status: disabled Current occupation: rt handed Cognitive needs: No Hearing needs: No Vision needs: Yes Physical Exam Vital Signs: Vital Signs: Last Vital Signs Temp 98.6 F 02/23/24 08:26 Pulse 76 02/23/24 08:26 Resp 16 02/23/24 10:15 BP 133/84 02/23/24 08:26 Pulse Ox 100 02/23/24 08:26 O2 Del Method Room Air 02/23/24 08:26 BMI result Body Mass Index 40.3 General: Well-appearing well-nourished in no signs of distress HEENT: Normocephalic atraumatic Neck: No signs of JVD, no masses no tenderness or lymphadenopathy Cardiovascular: Regular rate and rhythm Respiratory: Clear to auscultation bilaterally Abdomen: Soft nontender no masses Extremities: Normal pedal pulses no signs of edema Skin: Dry warm no rashes Back: No tenderness full ROM Course Course Course Narrative: Patient's cardiac workup was unremarkable we will hold the patient here and wait for evaluation per [facility] there is no providers today but will be kept overnight to be evaluated in the morning. Medical Decision Making Medical Decision Making [facility] Narrative: Will check labs to ensure her does take an EKG chest x-ray Differential Diagnosis Differential Diagnoses: The differential diagnosis associated with the presentation includes Chest pain ACS abdominal pain pancreatitis gastritis anxiety depression Admission/Observation Consideration of admission/observation: Escalation of care including admission/observation considered Consult Healthcare Provider Management of the patient was discussed with: [facility] Provider Lab Data [facility] Lab Attestation statement: I reviewed the patient's lab results. 02/23/24 08:43 02/23/24 08:43 Labs: Lab Results 02/23/24 02/23/24 02/23/24 Range/Units 08:40 08:43 11:22 WBC 5.1 (4.8-10.8) X10*3/uL RBC 4.65 (4.20-5.50) X10*6/uL Hgb 13.9 (12.0-16.0) g/dl Hct 41.8 (37.0-47.0) % MCV 89.9 (80.0-98.0) fL MCH 29.9 (27.0-33.0) pg MCHC 33.3 (31.0-35.0) g/dl RDW 13.4 (11.0-16.0) % Plt Count 266 (160-400) X10*3/uL MPV 10.2 (9.4-12.3) fL Immature Gran % (Auto) 0.4 (0.0-0.4) % Neut % (Auto) 43.6 L (45-73) % Lymph % (Auto) 34.4 (20-40) % [place] % (Auto) 9.7 (2-11) % Eos % (Auto) 11.1 H (0-4) % Baso % (Auto) 0.8 (0-2) % Lymph # (Auto) 1.7 (1.2-4.9) X10*3/uL [place] # (Auto) 0.5 (0.1-1.2) X10*3/uL Eos # (Auto) 0.6 H (0.0-0.4) X10*3/uL Baso # (Auto) 0.0 (0.0-0.2) X10*3/uL Abs Immat Gran (auto) 0.02 (0.00-0.03) X10*3/uL Absolute Neuts (auto) 2.2 (2.0-8.3) x10*3/uL Absolute Nucleated RBC 0.000 (0.0-0.012) X10*3/uL Nucleated RBC % (auto) 0.0 (0.0-0.2) /100WBC Sodium 139 (135-145) mmol/L Potassium 3.7 (3.3-5.1) mmol/L Chloride 104 (96-108) mmol/L Carbon Dioxide 27 (22-29) mmol/L Anion Gap 12 (12-20) BUN 12 (9-16) mg/dL Creatinine 0.78 (0.5-1.4) mg/dL Estim Creat Clear Calc 93.1 Estimated GFR > 60 Random Glucose 83 (60-115) mg/dL Calcium 9.6 (8.4-10.2) mg/dL Total Bilirubin 0.4 (0.0-1.0) mg/dL Direct Bilirubin 0.1 (0.0-0.5) mg/dL AST 18 (5-31) U/L ALT 14 (0-31) U/L Alkaline Phosphatase 63 (39-117) U/L Total Protein 7.3 (6.5-8.0) g/dL Albumin 4.0 (3.5-5.0) g/dL Lipase 13 (8-78) U/L Urine Color Dark Yellow Urine Appearance Cloudy Urine pH 5.5 (5.0-9.0) Ur Specific [place] >= 1.030 H (1.005-1.025) Urine Protein 30 (1+) H (Neg-Trace) mg/dL Urine Glucose (UA) Negative (Negative) mg/dL Urine Ketones Trace (Negative) mg/dL Urine Blood Negative (Negative) Urine Nitrite Negative (Negative) Ur Leukocyte Esterase Trace H (Negative) Urine RBC 0-2 (0-2) /HPF Urine WBC 0-5 (0-5) /HPF Ur Squamous Epith Cells >20 (0-2) /HPF Urine Bacteria 1+ (None Seen) Hyaline Casts 3-5 (0-2) /LPF Urine Opiates Screen Not Detected (Not Detect) Urine Fentanyl Screen Not Detected (Not Detect) Ur Barbiturates Screen Not Detected (Not Detect) Ur Phencyclidine Scrn Not Detected (Not Detect) Ur Amphetamines Screen Not Detected (Not Detect) U Benzodiazepines Scrn Not Detected (Not Detect) Urine Cocaine Screen Not Detected (Not Detect) U Marijuana (THC) Screen Not Detected (Not Detect) COVID-19 (PHILL) Negative (Negative) COVID-19 Clin Com See Note Discharge Plan Discharge Clinical Impression: Suicidal ideation, Back pain, Chest pain Patient Disposition: Still a Patient Instructions: Suicide Prevention (ED), Chest Pain (DC), Back Pain (ED) Additional Instructions: You were seen in the emergency department for back pain chest pain and suicidal ideation. You had x-ray and labs done and were seen by crisis. Please call follow-up with your doctor. Prescriptions: No Action cyclobenzaprine 10 mg tablet 10 mg PO TID Qty: 90 8RF montelukast 10 mg tablet 10 mg PO DAILY Qty: 30 2RF celecoxib 200 mg capsule 200 mg PO BID Qty: 60 3RF naproxen [Naprosyn] 500 mg tablet 500 mg PO BID PRN (Reason: pain) Qty: 30 7RF fexofenadine 180 mg tablet 180 mg PO DAILY 90 Days Qty: 90 2RF methylprednisolone [Medrol (Scott)] 4 mg tablets,dose pack See Rx Instructions PO PER PKG DIR Qty: 21 0RF Rx Instructions: PO PER PKG DIR Flovent HFA 220 mcg/actuation HFA aerosol inhaler 2 puff inhalation BID Qty: 12 7RF azithromycin 250 mg tablet See Rx Instructions PO .COMPLEX Qty: 6 0RF Rx Instructions: take 500 mg today (day 1), then 250 mg for 4 days (days 2-5) orally; methylprednisolone [Medrol (Scott)] 4 mg tablets,dose pack See Rx Instructions PO PER PKG DIR Qty: 21 0RF Rx Instructions: orally per package directions; PO PER PKG DIR lorazepam 1 mg tablet 1 mg PO BID PRN (Reason: anxiety) Qty: 60 0RF Interventions: Siler-Suicide Risk Severity Scale Last Done: 02/23/24 10:15 Print Language: Khmer
[2024-02-23 10:15] VITALS: RESP 16
[2024-02-23 10:54] LABS: Alanine Aminotransferase 14 U/L (0-31); Alkaline Phosphatase 63 U/L (39-117); Anion Gap 12 (12-20); Aspartate Amino Transferase 18 U/L (5-31); Bilirubin Direct 0.1 mg/dL (0.0-0.5); Bilirubin Total 0.4 mg/dL (0.0-1.0); Blood Urea Nitrogen 12 mg/dL (9-16); Calcium 9.6 mg/dL (8.4-10.2); Carbon Dioxide 27 mmol/L (22-29); Chloride 104 mmol/L (96-108); Creatinine Clr Calc Pharmacy 93.1; Estimated Glomerular Filt Rate > 60; Glucose Random 83 mg/dL (60-115); Lipase 13 U/L (8-78); Potassium 3.7 mmol/L (3.3-5.1); Sodium 139 mmol/L (135-145); Total Protein 7.3 g/dL (6.5-8.0)
[2024-02-23 11:35] LABS: Amphetamine Screen Urine Not Detected (Not Detect); Barbiturates, Urine Not Detected (Not Detect); Benzodiazepines Screen Urine Not Detected (Not Detect); Cannabinoid Screen Urine Not Detected (Not Detect); Cocaine Screen Urine Not Detected (Not Detect); Fentanyl, urine Not Detected (Not Detect); Opiate Screen Urine Not Detected (Not Detect); Phencyclidine Screen Urine Not Detected (Not Detect)
[2024-02-23 13:11] LABS: Acetaminophen LAB < 5 mcg/mL (<30); Salicylate < 5.0 mg/dL (15-30)
[2024-02-23 16:55] VITALS: BP 140/86; PULSE 62; RESP 16; TEMP 36.4; O2SAT 98
--- NOTE | 2024-02-23 17:37 | PC.NURSE ---
Patient requesting to be discharged, citing long wait time for care team as main concern. MD aware, MD not comfortable with discharging patient at this time. Patient aware and agreeable
--- NOTE | 2024-02-23 19:37 | PC.NURSE ---
patient has asked to dc, has prev expressed SI and asking to go home have informed patient they need to be cleared patients visit waits and attends patient
[2024-02-23] MEDS: Acetaminophen 325 MG TABLET 650 MG PO (20:32)
[2024-02-23 21:35] LABS: Ethanol < 10 mg/dL
[2024-02-23 23:19] VITALS: BP 120/76; PULSE 66; RESP 16; TEMP 36.7; O2SAT 96
[2024-02-23 23:28] VITALS: BP 120/76; PULSE 76; RESP 16; TEMP 37; O2SAT 96
== END 2024-02-23 23:30 | disposition home or self-care (01) ==
PROVIDERS: Emergency Provider Student in an Organized Health Care Education/Training Program; PCP Internal Medicine
DX: R45.851 Suicidal ideations (principal); R07.9 Chest pain, unspecified; M54.9 Dorsalgia, unspecified; Z79.899 Other long term (current) drug therapy; Z88.0 Allergy status to penicillin; Z88.1 Allergy status to other antibiotic agents; Z11.52 Encounter for screening for COVID-19
CPT/HCPCS: 36415; 71046; 80048; 80076; 80143; 80179; 80307; 81001; 83690; 85025; 87635; 93005; 99285; S9485

== ENCOUNTER → 2024-02-23 08:18 | Outpatient (BNV) | payer MEDICARE, MEDICAID, SELFPAY | PROVIDERS: Emergency Provider Student in an Organized Health Care Education/Training Program; PCP Internal Medicine; Visit Provider Internal Medicine Cardiovascular Disease | DX: I45.10 Unspecified right bundle-branch block (principal); R07.9 Chest pain, unspecified | CPT/HCPCS: 93010 ==

== ENCOUNTER 2024-05-01 13:37 | Outpatient (AMB) | payer MEDICARE, MEDICAID, SELFPAY ==
--- NOTE | 2024-05-01 13:38 | MHC.PC.OV ---
Vital Signs 05/01/24 13:39 Height 5 ft 6 in Weight 273 lb BMI 44.1 BP 138/86 Blood Pressure Location Lt brachial Position Sitting Pulse 65 Pulse Source Pulse Oximeter Pulse Oximetry (%) 98 Oxygen Delivery Method Room Air Intake Visit Reasons: 3M follow up Technology Infusion Specialist Required: No Varnish Supervisor: Not Required per policy Accompanied by: Self / Same As Patient Allergies amoxicillin Allergy (Unknown, Verified 05/01/24 13:39) Nausea cephalexin [Keflex] Allergy (Unknown, Verified 05/01/24 13:39) stomach upset Codeine Allergy (Unknown, Uncoded 05/01/24 13:39) Dizziness shellfish Allergy (Unknown, Uncoded 05/01/24 13:39) hives Tobacco use date assessed: 12/03/23 Fall risk assessment: No Falls in past year Last assessed Fall Risk: 05/01/24 Dental Screening Dental Screen Date: 01/20/24 HPI 3M follow up HPI Details recurrent asthma; 1 week [facility] Medical History MARIE (obstructive sleep apnea) Morbid (severe) obesity due to excess calories Morbid obesity Back pain Anxiety and depression Osteoarthritis Obstructive sleep apnea Lumbar degenerative disc disease Asthma Obesity Surgical History History of section Family History Mother Mental health disorder Father Mental health disorder Other Substance use disorder Social History Housing: Apartment Alcohol intake: never Patient Tobacco Use Status: Never used Tobacco e-Cigarette/Vaping Use: Never Used Second Hand Smoke Exposure: No service: No Current occupational status: disabled Current occupation: rt handed Cognitive needs: No Hearing needs: No Vision needs: Yes Questionnaire Thrive Questionnaire Date Thrive assessed: 12/03/23 NERISSA-7 AMB Questionnaire NERISSA-7 Date NERISSA - 7 assessed: 12/03/23 Source: Developed by Drs. Adrian Soto, Candy Lynn, Urban Mccarthy and colleagues, with an educational akila from [employer]. Review of Systems Const Denies chills, Denies headache(s) and Denies weight loss ENT Denies headache(s) Card Denies chest pain, Denies syncope and Denies irregular heart rhythm GI Denies abdominal pain, Denies change in stool character, Denies nausea and Denies vomiting Musc Denies deformity and Denies joint swelling Neuro Denies syncope and Denies headache(s) Physical exam (Primary Care) Vital Signs: Last Vital Signs Pulse 65 05/01/24 13:39 BP 138/86 05/01/24 13:39 Pulse Ox 98 05/01/24 13:39 Oxygen Delivery Method Room Air 05/01/24 13:39 BMI result Body Mass Index 44.1 Tobacco/Smoking Status: Tobacco use Status Tobacco use date assessed 12/03/23 05/01/24 13:40 Patient Tobacco Use Status Never used Tobacco 05/01/24 13:40 e-Cigarette/Vaping Use Never Used 05/01/24 13:40 Thrive Assessment: Date of Thrive Assessment Date Thrive assessed 12/03/23 05/01/24 13:40 Const General: cooperative, comfortable, no acute distress and alert Neck Neck: Yes no lymphadenopathy Thyroid: Thyroid normal Resp Other: bilat wheezes Effort & Inspection: normal respiratory effort Percussion: percussion normal Cardio Jugular venous distension: no JVD Palpation: normal PMI Rate: regular rate Rhythm: regular rhythm Heart sounds: S1 normal heart sound present and S2 normal heart sound present GI Inspection: Yes normal to inspection Palpation (GI): No hepatosplenomegaly present Skin General skin exam: no rashes or lesions noted Extrem General: Yes no clubbing, cyanosis or edema Assessment and Plan Assessment & Plan (1) Asthma: Code(s): J45.909 - Unspecified asthma, uncomplicated Plan: rx sent Medications: New methylprednisolone (Medrol (Scott)) PO PER PKG DIR 21 ea 1RF Coding Level of Care Code Est Pt Level 3 (07795) Diagnoses Asthma J45.909
[2024-05-01 13:39] VITALS: BP 138/86; PULSE 65; O2SAT 98; BMI 44.1
== END 2024-05-01 16:16 | disposition home or self-care (01) ==
PROVIDERS: PCP Internal Medicine; Visit Provider Internal Medicine
DX: J45.909 Unspecified asthma, uncomplicated (principal)
CPT/HCPCS: 99213

== ENCOUNTER 2024-07-31 11:00 | Outpatient (AMB) | payer MEDICARE, MEDICAID, SELFPAY ==
[2024-07-31 11:04] VITALS: BP 134/80; PULSE 70; O2SAT 97; BMI 45.3
--- NOTE | 2024-07-31 11:04 | A.OFFVIS_ITS ---
Intake Vital Signs 07/31/24 11:04 Height 5 ft 6 in Weight 281 lb BMI 45.3 BP 134/80 Blood Pressure Location Lt brachial Position Sitting Pulse 70 Pulse Source Pulse Oximeter Pulse Oximetry (%) 97 Oxygen Delivery Method Room Air Intake Visit Reasons: Annual wellness visit Intake Note: Patient is requesting a rx for prednisone. 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 Accompanied by: Self / Same As Patient Allergies amoxicillin Allergy (Unknown, Verified 07/31/24 11:04) Nausea cephalexin [Keflex] Allergy (Unknown, Verified 07/31/24 11:04) stomach upset Codeine Allergy (Unknown, Uncoded 07/31/24 11:04) Dizziness shellfish Allergy (Unknown, Uncoded 07/31/24 11:04) hives Medication List - Last Reconciled 07/31/24 by Charlie Sanchez MD celecoxib 200 mg PO BID cyclobenzaprine 10 mg PO TID fexofenadine 180 mg PO DAILY 90 days fluticasone propionate 220 mcg/actuation 2 puffs inhalation BID lorazepam 1 mg PO BID PRN montelukast 10 mg PO DAILY naproxen (Naprosyn) 500 mg PO BID PRN HPI Annual wellness visit HPI Details asthma and osteoarthritis in knees; doing well [facility] Medical History MARIE (obstructive sleep apnea) Morbid (severe) obesity due to excess calories Morbid obesity Back pain Anxiety and depression Osteoarthritis Obstructive sleep apnea Lumbar degenerative disc disease Asthma Obesity Surgical History History of section Family History Mother Mental health disorder Father Mental health disorder Other Substance use disorder Social History Housing: Apartment Alcohol intake: never Patient Tobacco Use Status: Never used Tobacco e-Cigarette/Vaping Use: Never Used Second Hand Smoke Exposure: No service: No Current occupational status: disabled Current occupation: rt handed Cognitive needs: No Hearing needs: No Vision needs: Yes Questionnaire Medicare Wellness Checkup What gender do you identify with?: female During the past 4 weeks, how much have you been bothered by emotional problems such as feeling anxious, depressed, irritable, sad or downhearted, and blue?: quite a bit During the past 4 weeks, has your physical & emotional health limited your social activities with family, friends, neighbors, or groups?: not at all During the past 4 weeks, how much bodily pain have you generally had?: moderate pain During the past 4 weeks, was someone available to help you if you needed & wanted help?: yes, quite a bit During the past 4 weeks, what was the hardest physical activity you could do for at least 2 minutes?: moderate Can you get to places out of walking distance without help? (For eg., can you travel alone on buses, taxis or drive your car?): Yes Can you go shopping for groceries or clothes without someone's help?: Yes Can you prepare your own meals?: Yes Can you do your housework without help?: Yes Because of any health problems, do you need the help of another person with your personal care needs such as eating, bathing, dressing or getting around the house?: No Can you handle your own money without help?: Yes During the past 4 weeks, how would you rate your health in general?: fair During the past 4 weeks how have things been going for you?: good & bad parts about equal Are you having difficulties driving your car?: no Do you always fasten your seat belt when you are in a car?: yes, usually During past 4 weeks, have you been bothered by the following: often: Falling or dizzy when standing up and Trouble eating well? and always: Sexual problems? Have you fallen 2 or more times in the past year?: No Are you afraid of falling?: Yes Are you a smoker?: no During the past 4 weeks, how many drinks of wine, beer, or other alcoholic beverages did you have?: no alcohol at all Do you exercise for about 20 minutes 3 or more times a week?: yes, some of the time Have you been given information to help with the following?: no: Hazards in your house that might hurt you? and no: Keeping track of your medications? How often do you have trouble taking medicines the way you have been told to take them?: I always take medicine as prescribed How confident are you that you can control & manage most of your health problems?: somewhat confident What is your race?: White Mini Mental State Exam (MMSE) Orientation What is the (year) (season) (date) (day) (month)?: year, season, date, day and month Where are we (state) (county) (town or city) (hospital) (floor)?: state, county, town or city, hospital/clinic and floor Registration Name of 3 unrelated objects clearly and slowly, then ask patient to repeat all 3 of them. (1st repeat determines score. Make sure they can repeat all three): object 1, object 2 and object 3 Attention & Calculation (CHOOSE ONE) Ask pt to begin with 100 & count backward by 7. Stop after 5 repeats. If pt cannot ask them to spell the word WORLD backward.: 93 Spell WORLD backwards (DLROW): 3 letters Recall Ask patient to repeat the 3 items from question #3.: object 1 Score Score: 18 Activity of Daily Living Bathing - sponge bath, tub bath or shower: receives no assistance (gets in/out by self, if usual bathing means Dressing - getting clothes from closets & drawers, including inner/outer garments & fasteners.: gets clothes & gets completely dressed without help Toileting - going to the 'toilet room' for urine/bowel elimination & cleaning self/arranging clothes: goes to toilet room, cleans self, arranges clothes without help Transfer: moves in & out of bed and chair without help (may use support object) Continence: controls urination/bowel movements completely by self Feeding: feeds self without help Total Score: 0 Information obtained from: patient Using telephone: independent Traveling: independent Shopping: independent Preparing meals: independent Housework: independent Taking medicine: independent Managing money: independent PHQ-9 Over the last 2 weeks, how often have you been bothered by any of the following problems? 1. Little interest or pleasure in doing things: more than half the days 2. Feeling down, depressed, or hopeless: several days 3. Trouble falling or staying asleep, or sleeping too much: several days 4. Feeling tired or having little energy: more than half the days 5. Poor appetite or overeating: not at all 6. Feeling bad about yourself - or that you are a failure or have let yourself or your family down: more than half the days 7. Trouble concentrating on things, such as reading the newspaper or watching television: nearly every day 8. Moving or speaking so slowly that other people could have noticed. Or the opposite - being so fidgety or restless that you have been moving around a lot more than usual: not at all 9. Thoughts that you would be better off or of hurting yourself in some way: not at all Total score: 11 Depression Screening Interpretation: Positive Depression Screening Done: Yes 89022 - PHQ-9 Billing: Yes Source: Developed by Drs. Adrian Soto, Candy Lynn, Urban Mccarthy and colleagues, with an educational akila from [employer]. Review of Systems Const Denies chills, Denies fatigue, Denies headache(s) and Denies weight loss Eyes Denies change in vision, Denies diplopia and Denies eye pain ENT Reports Normal hearing present, Denies vertigo, Denies dizziness, Denies headache(s) and Denies nasal discharge Card Denies chest pain, Denies rapid heart rate and Denies dyspnea on exertion Resp Denies chest congestion, Denies cough, Denies pain with cough and Denies dyspnea on exertion GI Denies abdominal pain, Denies hematochezia and Denies change in bowel habits Musc Denies myalgias, Denies arthralgias and Denies joint swelling Skin/Breast Denies lesions and Denies unusual bruising Neuro Reports Normal hearing present, Denies vertigo, Denies dizziness, Denies headache(s) and Denies focal weakness Endo Denies fatigue Physical Exam Vital Signs: Last Vital Signs Pulse 70 07/31/24 11:04 BP 134/80 07/31/24 11:04 Pulse Ox 97 07/31/24 11:04 Oxygen Delivery Method Room Air 07/31/24 11:04 BMI result Body Mass Index 45.3 Neuro Cranial nerves: Yes Normal hearing present Assessment & Plan Assessment & Plan (1) Encounter for initial annual wellness visit (AWV) in Medicare patient: Code(s): Z00.00 - Encounter for general adult medical examination without abnormal findings Plan: whisper and rhomberg testsnormal (2) Osteoarthritis of left knee: Code(s): M17.12 - Unilateral primary osteoarthritis, left knee Plan: stable; same rx (3) Asthma: Code(s): J45.909 - Unspecified asthma, uncomplicated Plan: stable; same rx Medications: Refilled fluticasone propionate 220 mcg/actuation 2 puffs inhalation BID 12 grams 7RF Quality Reporting (2019) Depression/Bipolar (159/160/161/177) PHQ-9: Total score: 11 Coding Level of Care Code Medicare First (G0438) Diagnoses Encounter for initial annual wellness visit (AWV) in Medicare patient Z00.00 Osteoarthritis of left knee M17.12 Asthma J45.909 CPT Codes Advance Care Planning - Advance Care Planning discussion: On file, no changes ([id number]) Advance Care Planning Advance Care Planning discussion: On file, no changes Forms completed: Health Care Proxy
== END 2024-07-31 13:43 | disposition home or self-care (01) ==
PROVIDERS: PCP Internal Medicine; Visit Provider Internal Medicine
DX: Z00.00 Encounter for general adult medical examination without abnormal findings (principal); J45.909 Unspecified asthma, uncomplicated; E66.01 Morbid (severe) obesity due to excess calories; Z68.42 Body mass index [BMI] 45.0-49.9, adult
CPT/HCPCS: 1123F; G0438

== ENCOUNTER 2024-08-14 13:23 | Outpatient (AMB) | payer MEDICARE, MEDICAID, SELFPAY ==
[2024-08-14 13:24] VITALS: BP 136/76; PULSE 71; O2SAT 95; BMI 45.5
--- NOTE | 2024-08-14 13:24 | A.OFFPC_ITS ---
Vital Signs 08/14/24 13:24 Height 5 ft 6 in Weight 282 lb BMI 45.5 BP 136/76 Blood Pressure Location Lt brachial Position Sitting Pulse 71 Pulse Source Pulse Oximeter Pulse Oximetry (%) 95 Oxygen Delivery Method Room Air Intake Visit Reasons: 3 Month F/U Intake Note: Pt requesting an albuterol rescue inhaler. She also reports injuring her right ankle. 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 Accompanied by: Self / Same As Patient Allergies amoxicillin Allergy (Unknown, Verified 08/14/24 13:26) Nausea cephalexin [Keflex] Allergy (Unknown, Verified 08/14/24 13:26) stomach upset Codeine Allergy (Unknown, Uncoded 08/14/24 13:26) Dizziness shellfish Allergy (Unknown, Uncoded 08/14/24 13:26) hives Medication List - Last Reconciled 08/14/24 by Charlie Sanchez MD celecoxib 200 mg PO BID cyclobenzaprine 10 mg PO TID fexofenadine 180 mg PO DAILY 90 days fluticasone propionate 220 mcg/actuation 2 puffs inhalation BID lorazepam 1 mg PO BID PRN methylprednisolone (Medrol (Scott)) PO PER PKG DIR montelukast 10 mg PO DAILY naproxen (Naprosyn) 500 mg PO BID PRN Tobacco use date assessed: 12/03/23 Fall risk assessment: No Falls in past year Last assessed Fall Risk: 08/14/24 Dental Screening Dental Screen Date: 01/20/24 HPI 3 Month F/U HPI Details asthma attacks; for a week [facility] Medical History MARIE (obstructive sleep apnea) Morbid (severe) obesity due to excess calories Morbid obesity Back pain Anxiety and depression Osteoarthritis Obstructive sleep apnea Lumbar degenerative disc disease Asthma Obesity Surgical History History of section Family History Mother Mental health disorder Father Mental health disorder Other Substance use disorder Social History Housing: Apartment Alcohol intake: never Patient Tobacco Use Status: Never used Tobacco Tobacco use type: Cigarette e-Cigarette/Vaping Use: Never Used Second Hand Smoke Exposure: No service: No Current occupational status: disabled Current occupation: rt handed Cognitive needs: No Hearing needs: No Vision needs: Yes Questionnaire PHQ-9 Over the last 2 weeks, how often have you been bothered by any of the following problems? 1. Little interest or pleasure in doing things: more than half the days 2. Feeling down, depressed, or hopeless: several days 3. Trouble falling or staying asleep, or sleeping too much: several days 4. Feeling tired or having little energy: more than half the days 5. Poor appetite or overeating: not at all 6. Feeling bad about yourself - or that you are a failure or have let yourself or your family down: more than half the days 7. Trouble concentrating on things, such as reading the newspaper or watching television: nearly every day 8. Moving or speaking so slowly that other people could have noticed. Or the opposite - being so fidgety or restless that you have been moving around a lot more than usual: not at all 9. Thoughts that you would be better off or of hurting yourself in some way: not at all Total score: 11 Depression Screening Interpretation: Positive Depression Screening Done: Yes 62147 - PHQ-9 Billing: Yes Source: Developed by Drs. Adrian Soto, Urban Chairez and colleagues, with an educational akila from [employer]. Thrive Questionnaire Date Thrive assessed: 12/03/23 AUDIT C Alcohol Use Questionnaire (AUDIT-C) 1. How often do you have a drink containing alcohol?: Never Total Score: 0 Score Reviewed/Action Taken: Yes NERISSA-7 AMB Questionnaire NERISSA-7 Date NERISSA - 7 assessed: 12/03/23 Source: Developed by Drs. Adrian Soto, Urban Chairez and colleagues, with an educational akila from [employer]. Review of Systems Const Denies chills, Denies headache(s) and Denies weight loss ENT Denies headache(s) Card Denies chest pain, Denies syncope and Denies irregular heart rhythm GI Denies abdominal pain, Denies change in stool character, Denies nausea and Denies vomiting Musc Denies deformity and Denies joint swelling Neuro Denies syncope and Denies headache(s) Physical exam (Primary Care) Vital Signs: Last Vital Signs Pulse 71 08/14/24 13:24 BP 136/76 08/14/24 13:24 Pulse Ox 95 08/14/24 13:24 Oxygen Delivery Method Room Air 08/14/24 13:24 BMI result Body Mass Index 45.5 Tobacco/Smoking Status: Tobacco use Status Tobacco use date assessed 12/03/23 08/14/24 13:30 Patient Tobacco Use Status Never used Tobacco 08/14/24 13:30 Tobacco use type Cigarette 08/14/24 13:30 e-Cigarette/Vaping Use Never Used 08/14/24 13:30 PHQ-9: PHQ-9 Score PHQ-9: Total score 11 08/14/24 13:30 Depression Screening Interpretation: Positive Thrive Assessment: Date of Thrive Assessment Date Thrive assessed 12/03/23 08/14/24 13:30 Const General: cooperative, comfortable, no acute distress and alert Neck Neck: Yes no lymphadenopathy Thyroid: Thyroid normal Resp Other: bilateral wheezes Auscultation: clear to auscultation bilaterally Percussion: percussion normal Cardio Jugular venous distension: no JVD Palpation: normal PMI Rate: regular rate Rhythm: regular rhythm Heart sounds: S1 normal heart sound present and S2 normal heart sound present GI Inspection: Yes normal to inspection Palpation (GI): No hepatosplenomegaly present Skin General skin exam: no rashes or lesions noted Extrem General: Yes no clubbing, cyanosis or edema Assessment and Plan Assessment & Plan (1) Asthma: Code(s): J45.909 - Unspecified asthma, uncomplicated Plan: rx sent Medications: New methylprednisolone (Medrol (Scott)) PO PER PKG DIR 21 ea 0RF Refilled fluticasone propionate 220 mcg/actuation 2 puffs inhalation BID 12 grams 7RF Coding Level of Care Code Est Pt Level 3 (24651) Diagnoses Asthma J45.909
== END 2024-08-14 16:34 | disposition home or self-care (01) ==
PROVIDERS: PCP Internal Medicine; Visit Provider Internal Medicine
DX: J45.909 Unspecified asthma, uncomplicated (principal)

== ENCOUNTER → 2024-08-14 13:23 | Outpatient (BNVA) | payer MEDICARE, MEDICAID, SELFPAY | PROVIDERS: PCP Internal Medicine; Visit Provider Internal Medicine | DX: J45.909 Unspecified asthma, uncomplicated (principal); Z79.52 Long term (current) use of systemic steroids | CPT/HCPCS: 99212 ==

== ENCOUNTER 2024-09-10 09:20 | Outpatient (AMB) | payer MEDICARE, MEDICAID, SELFPAY ==
[2024-09-10 09:22] VITALS: BP 162/84; PULSE 82; O2SAT 96; BMI 45.8
--- NOTE | 2024-09-10 09:22 | A.OFFPC_ITS ---
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 Accompanied by: Self / Same As Patient Allergies amoxicillin Allergy (Unknown, Verified 09/10/24 09:22) Nausea cephalexin [Keflex] Allergy (Unknown, Verified 09/10/24 09:22) stomach upset Codeine Allergy (Unknown, Uncoded 09/10/24 09:22) Dizziness shellfish Allergy (Unknown, Uncoded 09/10/24 09:22) hives Medication List - Last Reconciled 09/10/24 by Charlie Sanchez MD celecoxib 200 mg PO BID cyclobenzaprine 10 mg PO TID fexofenadine 180 mg PO DAILY 90 days fluticasone propionate 220 mcg/actuation 2 puffs inhalation BID lorazepam 1 mg PO BID PRN montelukast 10 mg PO DAILY naproxen (Naprosyn) 500 mg PO BID PRN Tobacco use date assessed: 12/03/23 Fall risk assessment: 1 Fall in past year (Jul 2024 - hurt leg) Last assessed Fall Risk: 09/10/24 Dental Screening Dental Screen Date: 01/20/24 HPI Breathing issues HPI Details flare up of her asthma for a week [facility]PLACED BY [facility] Medical History MARIE (obstructive sleep apnea) Morbid (severe) obesity due to excess calories Morbid obesity Back pain Anxiety and depression Osteoarthritis Obstructive sleep apnea Lumbar degenerative disc disease Asthma Obesity Surgical History History of section Family History Mother Mental health disorder Father Mental health disorder Other Substance use disorder Social History Housing: Apartment Alcohol intake: never Patient Tobacco Use Status: Never used Tobacco Tobacco use type: Cigarette e-Cigarette/Vaping Use: Never Used Second Hand Smoke Exposure: No service: No Current occupational status: disabled Current occupation: rt handed Cognitive needs: No Hearing needs: No Vision needs: Yes Questionnaire PHQ-9 Over the last 2 weeks, how often have you been bothered by any of the following problems? 1. Little interest or pleasure in doing things: more than half the days 2. Feeling down, depressed, or hopeless: several days 3. Trouble falling or staying asleep, or sleeping too much: several days 4. Feeling tired or having little energy: more than half the days 5. Poor appetite or overeating: not at all 6. Feeling bad about yourself - or that you are a failure or have let yourself or your family down: more than half the days 7. Trouble concentrating on things, such as reading the newspaper or watching television: nearly every day 8. Moving or speaking so slowly that other people could have noticed. Or the opposite - being so fidgety or restless that you have been moving around a lot more than usual: not at all 9. Thoughts that you would be better off or of hurting yourself in some way: not at all Total score: 11 Depression Screening Interpretation: Positive Depression Screening Done: Yes 64969 - PHQ-9 Billing: Yes Source: Developed by Drs. dArian Soto, Urban Chairez and colleagues, with an educational akila from [employer]. Thrive Questionnaire Date Thrive assessed: 12/03/23 Are you currently unemployed and looking for a job?: No AUDIT C Alcohol Use Questionnaire (AUDIT-C) 1. How often do you have a drink containing alcohol?: Never Total Score: 0 Score Reviewed/Action Taken: Yes NERISSA-7 AMB Questionnaire NERISSA-7 Date NERISSA - 7 assessed: 12/03/23 Source: Developed by Drs. Adrian Soto, Urban Chairez and colleagues, with an educational akila from [employer]. Review of Systems Const Denies chills, Denies headache(s) and Denies weight loss ENT Denies headache(s) Card Denies chest pain, Denies syncope and Denies irregular heart rhythm GI Denies abdominal pain, Denies change in stool character, Denies nausea and Denies vomiting Musc Denies deformity and Denies joint swelling Neuro Denies syncope and Denies headache(s) Physical exam (Primary Care) Vital Signs: Last Vital Signs Pulse 82 09/10/24 09:22 BP 162/84 H 09/10/24 09:22 Pulse Ox 96 09/10/24 09:22 Oxygen Delivery Method Room Air 09/10/24 09:22 BMI result Body Mass Index 45.8 Tobacco/Smoking Status: Tobacco use Status Tobacco use date assessed 12/03/23 09/10/24 09:28 Patient Tobacco Use Status Never used Tobacco 09/10/24 09:28 Tobacco use type Cigarette 09/10/24 09:28 e-Cigarette/Vaping Use Never Used 09/10/24 09:28 PHQ-9: PHQ-9 Score PHQ-9: Total score 11 09/10/24 09:28 Depression Screening Interpretation: Positive Thrive Assessment: Date of Thrive Assessment Date Thrive assessed 12/03/23 09/10/24 09:28 Const General: cooperative, comfortable, no acute distress and alert Neck Neck: Yes no lymphadenopathy Thyroid: Thyroid normal Resp Other: bilat wheezes and rhonchi Auscultation: clear to auscultation bilaterally Percussion: percussion normal Cardio Jugular venous distension: no JVD Palpation: normal PMI Rate: regular rate Rhythm: regular rhythm Heart sounds: S1 normal heart sound present and S2 normal heart sound present GI Inspection: Yes normal to inspection Palpation (GI): No hepatosplenomegaly present Skin General skin exam: no rashes or lesions noted Extrem General: Yes no clubbing, cyanosis or edema Coding Level of Care Code Est Pt Level 3 (94699) Diagnoses Asthma J45.909 Assessment & Plan Assessment & Plan (1) Asthma: Code(s): J45.909 - Unspecified asthma, uncomplicated Category: Medical Plan: rx sent Medications: New methylprednisolone (Medrol (Scott)) PO PER PKG DIR 21 ea 0RF azithromycin take 500 mg today (day 1), then 250 mg for 4 days (days 2-5) PO 6 tabs 0RF
== END 2024-09-10 10:25 | disposition home or self-care (01) ==
PROVIDERS: PCP Internal Medicine; Visit Provider Internal Medicine
DX: J45.909 Unspecified asthma, uncomplicated (principal)

== ENCOUNTER → 2024-09-10 09:20 | Outpatient (BNVA) | payer MEDICARE, MEDICAID, SELFPAY | PROVIDERS: PCP Internal Medicine; Visit Provider Internal Medicine | DX: J45.909 Unspecified asthma, uncomplicated (principal) | CPT/HCPCS: 96127; 99212 ==

== ENCOUNTER 2024-10-09 10:15 | Outpatient (AMB) | payer MEDICARE, MEDICAID, SELFPAY ==
--- NOTE | 2024-10-09 10:16 | MHC.PC.OV ---
Vital Signs 10/09/24 10:17 Height 5 ft 6 in Weight 280 lb 8 oz BMI 45.3 BP 134/68 Blood Pressure Location Lt brachial Position Sitting Pulse 58 Pulse Source Pulse Oximeter Pulse Oximetry (%) 98 Oxygen Delivery Method Room Air Intake Visit Reasons: breathing problem Intake Note: Patient is here to follow up on Asthma flare up with wheezing. Cap Coverer Required: No Recreation Activities Coordinator: Not Required per policy Accompanied by: Self / Same As Patient Allergies amoxicillin Allergy (Unknown, Verified 10/09/24 10:17) Nausea cephalexin [Keflex] Allergy (Unknown, Verified 10/09/24 10:17) stomach upset Codeine Allergy (Unknown, Uncoded 10/09/24 10:17) Dizziness shellfish Allergy (Unknown, Uncoded 10/09/24 10:17) hives Medication List - Last Reconciled 10/09/24 by Charlie Sanchez MD celecoxib 200 mg PO BID cyclobenzaprine 10 mg PO TID fexofenadine 180 mg PO DAILY 90 days fluticasone propionate 220 mcg/actuation 2 puffs inhalation BID lorazepam 1 mg PO BID PRN montelukast 10 mg PO DAILY naproxen (Naprosyn) 500 mg PO BID PRN Tobacco use date assessed: 10/09/24 Fall risk assessment: No Falls in past year Last assessed Fall Risk: 10/09/24 Dental Screening Dental Screen Date: 01/20/24 HPI breathing problem HPI Details another flare up of her asthma, the third in a month FORMERLY [facility], [facility] Medical History MARIE (obstructive sleep apnea) Morbid (severe) obesity due to excess calories Morbid obesity Back pain Anxiety and depression Osteoarthritis Obstructive sleep apnea Lumbar degenerative disc disease Asthma Obesity Surgical History History of section Family History Mother Mental health disorder Father Mental health disorder Other Substance use disorder Social History Housing: Apartment Alcohol intake: never Patient Tobacco Use Status: Never used Tobacco Tobacco use type: Cigarette e-Cigarette/Vaping Use: Never Used Second Hand Smoke Exposure: No service: No Current occupational status: disabled Current occupation: rt handed Cognitive needs: No Hearing needs: No Vision needs: Yes Questionnaire Thrive Questionnaire Date Thrive assessed: 12/03/23 Are you currently unemployed and looking for a job?: No NERISSA-7 AMB Questionnaire NERISSA-7 Date NERISSA - 7 assessed: 12/03/23 Source: Developed by Drs. Adrian Soto, Candy Lynn, Urban Mccarthy and colleagues, with an educational akila from [employer]. Review of Systems Const Denies chills, Denies headache(s) and Denies weight loss ENT Denies headache(s) Card Denies chest pain, Denies syncope and Denies irregular heart rhythm GI Denies abdominal pain, Denies change in stool character, Denies nausea and Denies vomiting Musc Denies deformity and Denies joint swelling Neuro Denies syncope and Denies headache(s) Physical exam (Primary Care) Vital Signs: Last Vital Signs Pulse 58 10/09/24 10:17 BP 134/68 10/09/24 10:17 Pulse Ox 98 10/09/24 10:17 Oxygen Delivery Method Room Air 10/09/24 10:17 BMI result Body Mass Index 45.3 Tobacco/Smoking Status: Tobacco use Status Tobacco use date assessed 10/09/24 10/09/24 10:22 Patient Tobacco Use Status Never used Tobacco 10/09/24 10:22 Tobacco use type Cigarette 10/09/24 10:22 e-Cigarette/Vaping Use Never Used 10/09/24 10:22 Thrive Assessment: Date of Thrive Assessment Date Thrive assessed 12/03/23 10/09/24 10:22 Const General: cooperative, comfortable, no acute distress and alert Neck Neck: Yes no lymphadenopathy Thyroid: Thyroid normal Resp Other: bilat wheezes and rhonchi Auscultation: clear to auscultation bilaterally Percussion: percussion normal Cardio Jugular venous distension: no JVD Palpation: normal PMI Rate: regular rate Rhythm: regular rhythm Heart sounds: S1 normal heart sound present and S2 normal heart sound present GI Inspection: Yes normal to inspection Palpation (GI): No hepatosplenomegaly present Skin General skin exam: no rashes or lesions noted Extrem General: Yes no clubbing, cyanosis or edema Coding Level of Care Code Est Pt Level 3 (61340) Diagnoses Asthma J45.909 Assessment & Plan Assessment & Plan (1) Asthma: Code(s): J45.909 - Unspecified asthma, uncomplicated Category: Medical Plan: rx sent; ref to pulmonary Orders: Referrals Pulmonology Referral J45.909 - Unspecified asthma, uncomplicated Medications: New azithromycin take 500 mg today (day 1), then 250 mg for 4 days (days 2-5) PO 6 tabs 0RF methylprednisolone (Medrol (Scott)) PO PER PKG DIR 21 ea 0RF
[2024-10-09 10:17] VITALS: BP 134/68; PULSE 58; O2SAT 98; BMI 45.3
== END 2024-10-09 10:31 | disposition home or self-care (01) ==
PROVIDERS: PCP Internal Medicine; Visit Provider Internal Medicine
DX: J45.909 Unspecified asthma, uncomplicated (principal)

== ENCOUNTER → 2024-10-09 10:15 | Outpatient (BNVA) | payer MEDICARE, MEDICAID, SELFPAY | PROVIDERS: PCP Internal Medicine; Visit Provider Internal Medicine | DX: J45.909 Unspecified asthma, uncomplicated (principal) | CPT/HCPCS: 99212 ==

== ENCOUNTER 2024-11-02 15:02 | Outpatient (AMB) | payer MEDICARE, MEDICAID, SELFPAY ==
[2024-11-02 15:10] VITALS: BP 137/78; PULSE 80; O2SAT 96; BMI 44.2
--- NOTE | 2024-11-02 15:10 | A.OFFVIS_ITS ---
Vital Signs 11/02/24 15:10 Height 5 ft 8 in Weight 291 lb BMI 44.2 BP 137/78 Blood Pressure Location Rt brachial Position Sitting Pulse 80 Pulse Source Doppler Pulse Oximetry (%) 96 Oxygen Delivery Method Room Air Intake Visit Reasons: asthma Allergies amoxicillin Allergy (Unknown, Verified 10/09/24 10:17) Nausea cephalexin [Keflex] Allergy (Unknown, Verified 10/09/24 10:17) stomach upset Codeine Allergy (Unknown, Uncoded 10/09/24 10:17) Dizziness shellfish Allergy (Unknown, Uncoded 10/09/24 10:17) hives HPI HPI asthma: Details: 64-year-old lady, nonsmoker, with longstanding asthma and environmental allergies with suboptimal control now on Advair and albuterol MDI referred for further pulmonary management. Patient complains of persistent wheezing and some dyspnea on exertion, also lower extremity edema. She denies exposure to industrial dusts. She denies family history of lung disease. [facility] Medical History MARIE (obstructive sleep apnea) Morbid (severe) obesity due to excess calories Morbid obesity Back pain Anxiety and depression Osteoarthritis Obstructive sleep apnea Lumbar degenerative disc disease Asthma Obesity Surgical History History of section Family History Mother Mental health disorder Father Mental health disorder Other Substance use disorder Social History Housing: Apartment Alcohol intake: never Patient Tobacco Use Status: Never used Tobacco Tobacco use type: Cigarette e-Cigarette/Vaping Use: Never Used Second Hand Smoke Exposure: No service: No Current occupational status: disabled Current occupation: rt handed Cognitive needs: No Hearing needs: No Vision needs: Yes Review of Systems Const Denies daytime sleepiness, Denies excessive sweating, Denies fatigue, Denies fever(s), Denies lethargy, Denies malaise, Denies night sweats, Denies snoring and Denies weight loss Eyes Denies blurry vision and Denies itchy eyes ENT Denies nasal congestion, Denies post nasal drip, Denies sinus pain, Denies sinus pressure and Denies other ( Thrush) Card Denies chest pain, Reports pedal edema, Denies dyspnea, Reports dyspnea on exertion, Denies orthopnea and Denies paroxysmal nocturnal dyspnea Resp Denies cough, Denies hemoptysis, Denies excessive phlegm production, Denies dyspnea, Reports dyspnea on exertion, Denies snoring and Reports wheezing GI Denies abdominal pain and Denies heartburn Musc Denies myalgias, Denies arthralgias and Denies joint swelling Skin/Breast Denies rash Neuro Denies memory loss and Denies seizure-like activity Psych Denies abnormal sleep pattern, Denies anxiety and Denies memory loss Endo Denies excessive sweating, Denies fatigue and Denies heat intolerance Edgard/Lymph Denies easy bruising Aller/Immun Denies itchy eyes, Denies seasonal rhinorrhea and Reports wheezing Physical Exam Vital Signs: Last Vital Signs Pulse 80 11/02/24 15:10 BP 137/78 11/02/24 15:10 Pulse Ox 96 11/02/24 15:10 Oxygen Delivery Method Room Air 11/02/24 15:10 BMI result Body Mass Index 44.2 Const General: no acute distress and alert Nutritional Appearance: not obese Orientation/consciousness: Other orientation findings ( oriented) HEENT Head: Yes atraumatic Eyes General: appearance normal, both eyes and all related structures Sclerae: sclerae normal EOM: EOMs intact bilaterally Neck Neck: Yes supple Lymphatic: no lymphadenopathy noted Resp Effort & Inspection: normal respiratory effort and no use of accessory muscles Auscultation: clear to auscultation bilaterally Cardio Rate: regular rate Rhythm: regular rhythm Heart sounds: no gallops, no murmurs and no rubs Skin General skin exam: other ( warm) Extrem General: No clubbing, No cyanosis and No edema Assessment & Plan Assessment & Plan (1) Severe persistent asthma: Code(s): J45.50 - Severe persistent asthma, uncomplicated Category: Medical Plan: Suboptimally controlled on Advair, also unable to tolerate Advair secondary to development of blisters in her mouth. Switch to Trelegy. Will obtain full PFT. Request Dupixent approval. Continue albuterol MDI. (2) Environmental allergies: Code(s): Z91.09 - Other allergy status, other than to drugs and biological substances Category: Medical Plan: Results of CBC with differential reviewed, patient has significant peripheral eosinophilia. Expect to improve on Dupixent. (3) Dyspnea on exertion: Code(s): R06.09 - Other forms of dyspnea Category: Medical Plan: Likely multifactorial, will obtain 2D echocardiogram to evaluate cardiac component. Orders: Orders CA echo transthorac w con Today R06.09 - Other forms of dyspnea PFT pulmonary function test Today J45.50 - Severe persistent asthma, unco mplicated Medications: New puaeaticmyy-bhjdaipwf-krjjebly 200-62.5-25 mcg (Trelegy Ellipta) 1 inh inh alation DAILY 1 ea 6RF J45.50 - Severe persistent asthma, uncomplicated Coding Level of Care Code New Pt Level 4 (48465) Diagnoses Severe persistent asthma J45.50 Environmental allergies Z91.09 Dyspnea on exertion R06.09
== END 2024-11-02 15:28 | disposition home or self-care (01) ==
PROVIDERS: PCP Internal Medicine; Visit Provider Internal Medicine Pulmonary Disease
DX: J45.50 Severe persistent asthma, uncomplicated (principal); Z91.09 Other allergy status, other than to drugs and biological substances; R06.09 Other forms of dyspnea
CPT/HCPCS: 99204

== ENCOUNTER → 2024-11-02 15:02 | Outpatient (BNVA) | payer MEDICARE, MEDICAID, SELFPAY | PROVIDERS: PCP Internal Medicine; Visit Provider Internal Medicine Pulmonary Disease | DX: J45.50 Severe persistent asthma, uncomplicated (principal); R06.09 Other forms of dyspnea; Z91.09 Other allergy status, other than to drugs and biological substances | CPT/HCPCS: 99202 ==

== ENCOUNTER → 2024-11-25 08:51 | Outpatient (REF) | payer MEDICARE, MEDICAID, SELFPAY ==
--- NOTE | 2024-11-25 08:57 | CA_ITS ---
Transthoracic Echocardiogram Patient (Last, First, Middle): Sveta Aparicio Lee Gender: Female Date of : 1960 Age: 64 Procedure Date: 11/25/2024 Procedure Type: Transthoracic Echocardiogram Location: OP Height: 172.72 cm Weight: 131.54 kg BSA: 2.39 m2 Heart Rate: bpm BP: 124 / 82 mmHg Curriculum Development Coordinator: Referring MD: Farooq Hartley MD Symptoms: R06.09 - Other forms of dyspnea Study Quality: Adequate ECG Rhythm: Sinus Conclusions: - The left ventricular systolic function is normal. The calculated ejection fraction is 55% by biplane method. - There is mild calcification of the aortic valve. - There is mild mitral annular calcification. - There is no evidence of pulmonary hypertension. Findings Left Ventricle Normal left ventricular cavity size. The left ventricular systolic function is normal. The calculated ejection fraction is 55% by biplane method. There is no evidence of regional wall motion abnormalities. Diastolic function is normal for age. There is mild basal asymmetric hypertrophy. Right Ventricle Normal right ventricular cavity size and systolic function. Atria Both atria are normal in size. Aortic Valve There is a normal trileaflet aortic valve. There is mild calcification of the aortic valve. There is no aortic valve stenosis. There is no aortic valve regurgitation. Mitral Valve There is mild mitral annular calcification. There is no mitral valve regurgitation. There is no mitral valve stenosis. Pulmonic Valve The pulmonic valve is likely normal. Tricuspid Valve There is trace tricuspid valve regurgitation. There is no evidence of pulmonary hypertension. Great Vessels The aortic arch is normal in size. There is mild dilatation of the ascending aorta measuring 3.70 cm. Venous The inferior vena cava is normal in size and collapses greater than 50% with inspiration. Pericardium/Pleural There is no evidence of pericardial effusion. Prior Study Comparison No prior study available for comparison. Measurements 2D Linear Measurements IVSd: 1.08 0.6-0.9/0.6-1.0 cm LVIDd: 5.30 3.9-5.3/4.2-5.9 cm LVIDd Index: 2.22 2.4-3.2/2.2-3.1 cm/m2 LVIDs: 3.67 2.0-3.6 cm LVPWd: 0.77 0.7-1.1 cm LA Diam: 3.90 2.7-3.8/3.0-4.0 cm LAIDs Index: 1.63 1.5-2.3 cm/m2 LV Mass: 225.47 67-162/88-224 g LV Mass Index: 94.34 43-95/49-115 g/m2 LVOT Diam: 2.30 3.0+(-)1.3 cm RVOT Diam: 16.00 1.7-2.3 cm 2D Systolic Function EF 4C: 55.00 >55% EF 2C: 55.50 >55% EF BiP: 55.00 >55% Mitral Valve MV Pk E: 0.43 MV PK A: 0.60 MV Decel Time: 287.00 E/A: 0.70 E'Lateral: 6.85 E'Medial: 4.68 E/E' Med: 9.10 E/E' Lat: 6.20 PHT: 84.00 MVA PHT: 2.62 Decel [place]: 1.49 Aortic Valve AoV Pk Tashi: 1.28 AoV Mn Tashi: 0.82 AoV VTI: 0.27 AoV Pk Grad: 7.00 Aov Mn Grad: 3.00 PAULINA Cont.VTI: 3.14 LVOT LVOT Pk Tashi: 0.92 LVOT Mn Tashi: 0.53 LVOT VTI: 0.21 LVOT Pk Grad: 3.00 LVOT Mn Grad: 1.00 LVOT Diam: 2.30 LVOT Area: 4.15 Diastolic Function MV Pk E: 0.43 MV Pk A: 0.60 E/A: 0.70 E'Medial: 4.68 E/E' Med: 9.10 E' Laterial: 6.85 E/E' Lat: 6.20 Right Ventricle TAPSE (mm): 26.00 TVS' Tashi: 12.00 Tricuspid Valve TR Pk Tashi: 2.00 RVOT: 16.00 RA Press: 3.00 RVSP: 19.00 Great Vessels Aorta Ao Asc: 3.70 2.1-3.4 cm Ao Arch: 3.20 Updated in Other Vendor System with Status of Final Wood Cannon MD electronically signed on 11/27/2024 3:37:40 PM with status of Final
== END ==
LOC: HO.CARD 08:51
PROVIDERS: PCP Internal Medicine; Visit Provider Internal Medicine Pulmonary Disease
DX: R06.09 Other forms of dyspnea (principal)
CPT/HCPCS: 93306

== ENCOUNTER → 2024-11-25 08:57 | Outpatient (BNV) | payer MEDICARE, MEDICAID, SELFPAY | PROVIDERS: PCP Internal Medicine; Visit Provider Internal Medicine | DX: I42.2 Other hypertrophic cardiomyopathy (principal); I34.81 Nonrheumatic mitral (valve) annulus calcification; I35.8 Other nonrheumatic aortic valve disorders | CPT/HCPCS: 93306 ==

== ENCOUNTER 2024-12-09 13:04 | Outpatient (REF) | payer MEDICARE, MEDICAID, SELFPAY ==
--- NOTE | 2024-12-09 13:07 | PFT_ITS ---
Indication: Asthma Spirometry [FEV1 to FVC 59%; FEV1 1.63 L which is 61% predicted; FVC 2.79 L which is 81% predicted. The patient is not able to complete the post bronchodilator numbers because she had a reaction to the albuterol.] Lung Volumes [Total lung capacity 80% predicted; expiratory reserve volume 31% predicted] Diffusion Capacity [DLCO 92% predicted] Comparisons [none] Interpretation [There is an obstructive ventilatory defect consistent with moderate obstructive lung disease. The patient did not tolerate the post-bronchodilator spirometry so we can not address the question of reversibility. Total lung capacity is low normal and has a significant decrease in the expiratory reserve volume secondary to an elevated BMI. Diffusing capacity is within normal limits. Clinical correlation warranted.] MTDD
--- OUTSIDE RECORDS SUMMARY | 2024-12-09 14:59 | XMS_ITS | Clinical Summary ---
Author Organization [facility] ity Address [address] [place] [address] Care Team Providers Care Silo Man Name Role Phone Unavailable Primary Care Provider Unavailabl e Social History Tobacco Use Types Packs/Day Years Used Date Smoking Tobacco: Never Assessed Sex and Gender Information Value Date Recorded Sex Assigned at Not on file Gender Identity Not on file Sexual Orientation Not on file Plan of Treatment Health Maintenance Due Date Last Done Comments Breast Cancer Screening 1960 DTaP,Tdap,and Td Vaccines (1 - Tdap) 1978 Cervical Cancer Screening: P ap Smear 1980 Zoster Vaccines (1 of 2) 2009 COVID-19 Vaccine ( - 2023-2 5 season) 2024 Influenza Vaccine (#1) 2024 Pneumococcal Vaccine: 65+ Ye ars (1 of 1 - PCV) 2024 RSV Immunization Patients 60 + Years Old (1 - 1-dose 75+ series) 2034 HIB Vaccines Aged Out No longer eligi ble based on patient's age to complete this topic HPV Vaccines Aged Out No longer eligi ble based on patient's age to complete this topic Hepatitis A Vaccines Aged Out No long er eligible based on patient's age to complete this topic Hepatitis B Vaccines Aged Out No long er eligible based on patient's age to complete this topic IPV Vaccines Aged Out No longer eligi ble based on patient's age to complete this topic MMR Vaccines Aged Out No longer eligi ble based on patient's age to complete this topic Meningococcal ACWY Vaccine Aged Out N o longer eligible based on patient's age to complete this topic Pneumococcal Vaccine: Pediat rics (0 to 5 Years) and At-Risk Patients (6 to 64 Years) Aged Out No longer eligible b ased on patient's age to complete this topic RSV Immunization Patients Un scarlet 20 months Aged Out No longer eligible b ased on patient's age to complete this topic Varicella Vaccines Aged Out No longer eligible based on patient's age to complete this topic
== END 2024-12-09 13:05 | disposition home or self-care (01) ==
LOC: HO.RESP 13:04
PROVIDERS: PCP Internal Medicine; Visit Provider Internal Medicine Pulmonary Disease
DX: J45.50 Severe persistent asthma, uncomplicated (principal)
CPT/HCPCS: 94010; 94640; 94727; 94729

== ENCOUNTER 2025-01-11 10:26 | Outpatient (AMB) | payer MEDICARE, MEDICAID, SELFPAY ==
[2025-01-11 10:33] VITALS: BP 124/82; PULSE 75; O2SAT 96; BMI 47.6
--- NOTE | 2025-01-11 10:33 | A.OFFPC_ITS ---
Vital Signs 01/11/25 10:33 Height 5 ft 6 in Weight 295 lb BMI 47.6 BP 124/82 Blood Pressure Location Lt brachial Position Sitting Pulse 75 Pulse Source Pulse Oximeter Pulse Oximetry (%) 96 Oxygen Delivery Method Room Air Intake Visit Reasons: 3mth f/u Allergies amoxicillin Allergy (Unknown, Verified 01/11/25 10:33) Nausea cephalexin [Keflex] Allergy (Unknown, Verified 01/11/25 10:33) stomach upset Codeine Allergy (Unknown, Uncoded 01/11/25 10:33) Dizziness shellfish Allergy (Unknown, Uncoded 01/11/25 10:33) hives Tobacco use date assessed: 01/11/25 Fall risk assessment: No Falls in past year Last assessed Fall Risk: 01/11/25 Dental Screening Dental Screen Date: 01/11/25 Did you have a dental visit in the last 12 months?: Yes Did you have a dental problem in the last 6 months where you did not have access to dental care?: No Was dental information given to patient?: Patient has dentist HPI 3mth f/u HPI Details recurrent asthma PFSH Medical History MARIE (obstructive sleep apnea) Morbid (severe) obesity due to excess calories Morbid obesity Back pain Anxiety and depression Osteoarthritis Obstructive sleep apnea Lumbar degenerative disc disease Asthma Obesity Surgical History History of section Family History Mother Mental health disorder Father Mental health disorder Other Substance use disorder Social History Housing: Apartment Alcohol intake: never Patient Tobacco Use Status: Never used Tobacco Tobacco use type: Cigarette e-Cigarette/Vaping Use: Never Used Second Hand Smoke Exposure: No service: No Current occupational status: disabled Current occupation: rt handed Cognitive needs: No Hearing needs: No Vision needs: Yes Questionnaire PHQ-9 Over the last 2 weeks, how often have you been bothered by any of the following problems? 1. Little interest or pleasure in doing things: more than half the days 2. Feeling down, depressed, or hopeless: several days 3. Trouble falling or staying asleep, or sleeping too much: several days 4. Feeling tired or having little energy: more than half the days 5. Poor appetite or overeating: not at all 6. Feeling bad about yourself - or that you are a failure or have let yourself or your family down: more than half the days 7. Trouble concentrating on things, such as reading the newspaper or watching television: nearly every day 8. Moving or speaking so slowly that other people could have noticed. Or the opposite - being so fidgety or restless that you have been moving around a lot more than usual: not at all 9. Thoughts that you would be better off or of hurting yourself in some way: not at all Total score: 11 Depression Screening Interpretation: Positive Depression Screening Done: Yes [id number] - PHQ-9 Billing: Yes Source: Developed by Drs. Adrian Soto, Candy Lynn, Urban Mccarthy and colleagues, with an educational akila from [employer]. Thrive Questionnaire Date Thrive assessed: 01/11/25 I am a: Patient What is your living situation today?: I have a steady place to live Within the past 12 months, did the food you bought not last and you didn't have the money to get more?: Never true Within the past 12 months, did you worry whether your food would run out before you got money to buy more?: Never true Do you have trouble paying for medicines?: No Do you have trouble getting transportation to medical appointments?: No Do you have trouble paying your heating and electricity bill?: No Do you have trouble taking care of your child, family member or friend?: No Do you have trouble with day-to-day activities such as bathing, preparing meals, shopping, managing finances, etc.?: No Are you currently unemployed and looking for a job?: No Are you interested in more education?: No Currently or been in a relationship where the following occur: No concerns reported THRIVE Score: 0 AUDIT C Alcohol Use Questionnaire (AUDIT-C) 1. How often do you have a drink containing alcohol?: Never Total Score: 0 Score Reviewed/Action Taken: Yes NERISSA-7 AMB Questionnaire NERISSA-7 Date NERISSA - 7 assessed: 01/11/25 Feeling nervous, anxious, or on edge: 0 = Not at all Not being able to stop or control worryin = Not at all Worrying too much about different things: 0 = Not at all Trouble relaxin = Not at all Being so restless that it is hard to sit still: 0 = Not at all Becoming easily annoyed or irritable: 0 = Not at all Feeling afraid as if something awful might happen: 0 = Not at all Total NERISSA-7 score (0-4 normal; 5-9 mild; 10-14 moderate; 15-21 severe): 0 Source: Developed by Drs. Adrian Soto, Candy Lynn, Urban Mccarthy and colleagues, with an educational akila from [employer]. Review of Systems Const Denies chills, Denies headache(s) and Denies weight loss ENT Denies headache(s) Card Denies chest pain, Denies syncope, Denies irregular heart rhythm and Denies dyspnea Resp Denies chest congestion, Denies cough and Denies dyspnea GI Denies abdominal pain, Denies change in stool character, Denies nausea and Denies vomiting Musc Denies deformity and Denies joint swelling Neuro Denies syncope and Denies headache(s) Physical exam (Primary Care) Vital Signs: Last Vital Signs Pulse 75 01/11/25 10:33 BP 124/82 01/11/25 10:33 Pulse Ox 96 01/11/25 10:33 Oxygen Delivery Method Room Air 01/11/25 10:33 BMI result Body Mass Index 47.6 Tobacco/Smoking Status: Tobacco use Status Tobacco use date assessed 01/11/25 01/11/25 10:36 Patient Tobacco Use Status Never used Tobacco 01/11/25 10:36 Tobacco use type Cigarette 01/11/25 10:36 e-Cigarette/Vaping Use Never Used 01/11/25 10:36 PHQ-9: PHQ-9 Score PHQ-9: Total score 11 01/11/25 10:36 Depression Screening Interpretation: Positive Thrive Assessment: Date of Thrive Assessment Date Thrive assessed 01/11/25 01/11/25 10:36 Currently or been in a relationship where the following occur: No concerns reported Const General: cooperative, comfortable, no acute distress and alert Neck Neck: Yes no lymphadenopathy Thyroid: Thyroid normal Resp Effort & Inspection: normal respiratory effort Auscultation: clear to auscultation bilaterally Percussion: percussion normal Cardio Jugular venous distension: no JVD Palpation: normal PMI Rate: regular rate Rhythm: regular rhythm Heart sounds: S1 normal heart sound present and S2 normal heart sound present GI Inspection: Yes normal to inspection Palpation (GI): No hepatosplenomegaly present Skin General skin exam: no rashes or lesions noted Extrem General: Yes no clubbing, cyanosis or edema Coding Level of Care Code Est Pt Level 3 (30434) Diagnoses Asthma J45.909 Additional Codes PHQ-9 - 96776 - PHQ-9 Billing: Yes ([id number]) Assessment & Plan Assessment & Plan (1) Asthma: Code(s): J45.909 - Unspecified asthma, uncomplicated Category: Medical Plan: rx sent Medications: New azithromycin take 500 mg today (day 1), then 250 mg for 4 days (days 2-5) PO 6 tabs 0RF methylprednisolone (Medrol (Scott)) PO PER PKG DIR 21 ea 0RF
--- OUTSIDE RECORDS SUMMARY | 2025-01-11 11:43 | XMS_ITS | Clinical Summary ---
Author Organization [facility] ity Address [address] [place] [address] Care Team Providers Care Gauge And Instrument Inspector Name Role Phone Unavailable Primary Care Provider Unavailabl e Social History Tobacco Use Types Packs/Day Years Used Date Smoking Tobacco: Never Assessed Comments Unknown Sex and Gender Information Value Date Recorded Sex Assigned at Not on file Legal Sex Female 2:13 PM EST Gender Identity Not on file Sexual Orientation Not on file Plan of Treatment Health Maintenance Due Date Last Done Comments Breast Cancer Screening 1960 DTaP,Tdap,and Td Vaccines (1 - Tdap) 1978 Cervical Cancer Screening: P ap Smear 1980 Pneumococcal Vaccine: 50+ Ye ars (1 of 1 - PCV) 2009 Zoster Vaccines (1 of 2) 2009 COVID-19 Vaccine ( - 2023-2 5 season) 2024 Influenza Vaccine (#1) 2024 RSV Immunization Patients 60 + Years [...] patient's age to complete this topic Meningococcal B Vacine Aged Out No lo nger eligible based on patient's age to complete [...]
== END 2025-01-11 11:44 | disposition home or self-care (01) ==
PROVIDERS: PCP Internal Medicine; Visit Provider Internal Medicine
DX: J45.909 Unspecified asthma, uncomplicated (principal)

== ENCOUNTER → 2025-01-11 10:26 | Outpatient (BNVA) | payer MEDICARE, MEDICAID, SELFPAY | PROVIDERS: PCP Internal Medicine; Visit Provider Internal Medicine | DX: J45.909 Unspecified asthma, uncomplicated (principal) | CPT/HCPCS: 96127; 99212 ==

== ENCOUNTER 2025-03-08 13:20 | Outpatient (AMB) | payer MEDICARE, MEDICAID, SELFPAY ==
--- NOTE | 2025-03-08 13:24 | MHC.PC.OV ---
Vital Signs 03/08/25 13:25 Height 5 ft 6 in Weight 298 lb 4 oz BMI 48.1 BP 142/80 H Blood Pressure Location Lt brachial Position Sitting Pulse 84 Pulse Source Pulse Oximeter Pulse Oximetry (%) 94 Oxygen Delivery Method Room Air Intake Visit Reasons: asthma flare up/allergies Bisque Finisher Required: No Accompanied by: Self / Same As Patient Allergies amoxicillin Allergy (Unknown, Verified 03/08/25 13:26) Nausea cephalexin [Keflex] Allergy (Unknown, Verified 03/08/25 13:26) stomach upset Codeine Allergy (Unknown, Uncoded 03/08/25 13:26) Dizziness shellfish Allergy (Unknown, Uncoded 03/08/25 13:26) hives Medication List - Last Reviewed 03/08/25 by AZUCENA Santacruz celecoxib 200 mg PO BID cyclobenzaprine 10 mg PO TID dupilumab (Dupixent) 300 mg (2 mL) subcut Q2W fexofenadine 180 mg PO DAILY 90 days crlcqgmnvrj-qworumffj-fwubgkab 200-62.5-25 mcg (Trelegy Ellipta) 1 inh inhalation DAILY lorazepam 1 mg PO BID PRN methylprednisolone (Medrol (Scott)) PO PER PKG DIR naproxen (Naprosyn) 500 mg PO BID PRN Tobacco use date assessed: 03/08/25 Fall risk assessment: 2 + Falls in past year Last assessed Fall Risk: 03/08/25 Dental Screening Dental Screen Date: 03/08/25 Did you have a dental visit in the last 12 months?: No Did you have a dental problem in the last 6 months where you did not have access to dental care?: No Was dental information given to patient?: Patient has dentist HPI asthma flare up/allergies HPI Details 64-year-old female with past medical history of obstructive sleep apnea, asthma, obesity, hypertension last seen 12/[address] Sanchez coming in for acute problem. Presenting with asthma and associated symptoms. She reports worsening breathing issues and the inability to sleep over the past week. The current albuterol inhaler, utilized as needed, appears less effective than before. She was recently started on Trellegy for asthma management but could not tolerate the medication and discontinued it. Additionally, she reports a chronic cough ongoing since winter, unaffected by previous interventions. Imaging and testing include a normal chest X-ray from earlier in the month and a pulmonary function test she couldn't complete due to difficulty. PHQ - pos plan to start on trazodone declines counselor. [facility] Medical History MARIE (obstructive sleep apnea) Morbid (severe) obesity due to excess calories Morbid obesity Back pain Anxiety and depression Osteoarthritis Obstructive sleep apnea Lumbar degenerative disc disease Asthma Obesity Surgical History History of section Family History Mother Mental health disorder Father Mental health disorder Other Substance use disorder Social History Housing: Apartment Alcohol intake: never Patient Tobacco Use Status: Never used Tobacco Tobacco use type: Cigarette e-Cigarette/Vaping Use: Never Used Second Hand Smoke Exposure: No service: No Current occupational status: disabled Current occupation: rt handed Cognitive needs: No Hearing needs: No Vision needs: Yes Questionnaire PHQ-9 Over the last 2 weeks, how often have you been bothered by any of the following problems? 1. Little interest or pleasure in doing things: more than half the days 2. Feeling down, depressed, or hopeless: several days 3. Trouble falling or staying asleep, or sleeping too much: several days 4. Feeling tired or having little energy: more than half the days 5. Poor appetite or overeating: not at all 6. Feeling bad about yourself - or that you are a failure or have let yourself or your family down: more than half the days 7. Trouble concentrating on things, such as reading the newspaper or watching television: nearly every day 8. Moving or speaking so slowly that other people could have noticed. Or the opposite - being so fidgety or restless that you have been moving around a lot more than usual: not at all 9. Thoughts that you would be better off or of hurting yourself in some way: not at all Total score: 11 Depression Screening Interpretation: Positive Depression Screening Follow-up: Existing condition and New Medication prescribed Depression Screening Done: Yes 40869 - PHQ-9 Billing: Yes Source: Developed by Drs. Adrian Soto, Urban Chairez and colleagues, with an educational akila from [employer]. Thrive Questionnaire Date Thrive assessed: 03/08/25 I am a: Patient What is your living situation today?: I have a steady place to live Within the past 12 months, did the food you bought not last and you didn't have the money to get more?: Never true Within the past 12 months, did you worry whether your food would run out before you got money to buy more?: Never true Do you have trouble paying for medicines?: No Do you have trouble getting transportation to medical appointments?: No Do you have trouble paying your heating and electricity bill?: No Do you have trouble taking care of your child, family member or friend?: No Do you have trouble with day-to-day activities such as bathing, preparing meals, shopping, managing finances, etc.?: No Are you currently unemployed and looking for a job?: No Are you interested in more education?: No Please select the resources that you would like help with: None Currently or been in a relationship where the following occur: No concerns reported THRIVE Score: 0 AUDIT C Alcohol Use Questionnaire (AUDIT-C) 1. How often do you have a drink containing alcohol?: Monthly or less 2. How many drinks containing alcohol do you have on a typical day when you are drinking?: 1 or 2 3. How often do you have six or more drinks on one occasion?: Less than monthly Total Score: 2 NERISSA-7 AMB Questionnaire NERISSA-7 Date NERISSA - 7 assessed: 03/08/25 Feeling nervous, anxious, or on edge: 0 = Not at all Not being able to stop or control worryin = Not at all Worrying too much about different things: 0 = Not at all Trouble relaxin = Not at all Being so restless that it is hard to sit still: 0 = Not at all Becoming easily annoyed or irritable: 0 = Not at all Feeling afraid as if something awful might happen: 0 = Not at all Total NERISSA-7 score (0-4 normal; 5-9 mild; 10-14 moderate; 15-21 severe): 0 Source: Developed by Candy Ocampo Shane, Urban Mccarthy and colleagues, with an educational akila from [employer]. Review of Systems Const Denies body aches, Denies chills, Reports fatigue, Denies fever(s), Denies headache(s) and Denies poor appetite Eyes Reports no additional complaints ENT Denies dizziness and Denies headache(s) Card Denies chest pain, Denies irregular heart rhythm, Denies lightheadedness and Reports dyspnea Resp Reports cough and Reports dyspnea Reports no additional complaints Musc Reports no additional complaints and Denies abnormal gait Skin/Breast Reports system reviewed and no additional complaints, except as documented Neuro Denies abnormal gait, Denies dizziness and Denies headache(s) Psych Reports no additional complaints Endo Reports fatigue Physical exam (Primary Care) Vital Signs: Last Vital Signs Pulse 84 03/08/25 13:25 BP 142/80 H 03/08/25 13:25 Pulse Ox 94 03/08/25 13:25 Oxygen Delivery Method Room Air 03/08/25 13:25 BMI result Body Mass Index 48.1 Tobacco/Smoking Status: Tobacco use Status Tobacco use date assessed 03/08/25 03/08/25 13:34 Patient Tobacco Use Status Never used Tobacco 03/08/25 13:26 Tobacco use type Cigarette 03/08/25 13:26 e-Cigarette/Vaping Use Never Used 03/08/25 13:26 PHQ-9: PHQ-9 Score PHQ-9: Total score 11 03/08/25 13:37 Depression Screening Interpretation: Positive Depression Screening Follow-up: Existing condition and New Medication prescribed Thrive Assessment: Date of Thrive Assessment Date Thrive assessed 03/08/25 03/08/25 13:34 Currently or been in a relationship where the following occur: No concerns reported Const General: cooperative, healthy appearing, comfortable and no acute distress Orientation/consciousness: patient oriented x3 HENMT Head: Yes normocephalic Ears: hearing grossly normal bilaterally General nose exam: Normal external nose present Eyes General: appearance normal, both eyes and all related structures Conjunctivae: conjunctivae normal Neck Neck: Yes full ROM and Yes no lymphadenopathy Resp Effort & Inspection: normal respiratory effort Auscultation: no crackles, no rales, no rhonchi and wheezes expiratory wheezes, inspiratory wheezes and throughout Cardio Rate: regular rate Rhythm: regular rhythm Skin General skin exam: no rashes or lesions noted Neuro General: patient oriented x3 Gait exam (Neuro): Normal gait present Extrem General: Yes normal to inspection, Yes full ROM and No edema Psych Affect: normal affect Attitude: cooperative Insight: Good insight present (Psych) Judgement: Good judgement present (Psych) Coding Level of Care Code Est Pt Level 4 (99766) Diagnoses Severe persistent asthma J45.50 Morbid (severe) obesity due to excess calories E66.01 Hypertension I10 Depression F32.A Additional Codes PHQ-9 - 71892 - PHQ-9 Billing: Yes ([id number]) Assessment & Plan Assessment & Plan (1) Severe persistent asthma: Code(s): J45.50 - Severe persistent asthma, uncomplicated Category: Medical Plan: Asthma is not well controlled at this time. She has been on multiple inhalers as well as Montelukast in the past without good benefit and significant side effects. Advised to reach out to mergers and acquisitions attorney for further treatment. Patient did receive nebulizer treatment in the office today sats did not improve but lung sounds did improve. Plan to treat with prednisone taper and antibiotic for possible infection. (2) Morbid (severe) obesity due to excess calories: Comment: HAD A LONG DISCUSSION WITH HER. STRESSED THAT SHE HAS TO LOSE WEIGHT, AT LEAST 10-15 LB TO START WITH. LOW CARB DIET EXPLAINED. SHE IS WELL MOTIVATED TO DO THAT. Code(s): E66.01 - Morbid (severe) obesity due to excess calories Category: Medical Plan: Healthy diet and regular exercise is encouraged. (3) Hypertension: Code(s): I10 - Essential (primary) hypertension Category: Medical Plan: Continue on current blood pressure medication. Avoid salt intake and encourage healthy diet and regular exercise. (4) Depression: Code(s): F32.A - Depression, unspecified Category: Medical Plan: Patient endorsing feelings of depression and difficulty sleeping. Plan to start on trazodone 50 mg nightly for management and follow up in 2 months. Plan For the patient's asthma exacerbation impacting her breathing and sleep, continuation with an albuterol inhaler as needed is confirmed, and the Trelegy inhaler's use remains discontinued due to adverse effects. Chronic cough management awaits additional insights from a pending mergers and acquisitions attorney appointment. Nebulizer treatment was introduced for acute symptom management during this consultation. Further evaluation is anticipated during a April 07 follow-up with the mergers and acquisitions attorney. Patient was informed and verbally consented to the use of an ambient scribe for clinic note documentation during this visit. Medications: New doxycycline hyclate 100 mg PO BID 14 caps 0RF trazodone 50 mg PO BEDTIME 30 tabs 2RF prednisone Take 4 tablets on days 1-2, take 3 tablets on days 3-4, take 2 tablets on days 5-6, take 1 tablet on days 7-8. 10 mg PO DIRECTED 20 tabs 0RF Discontinued naproxen (Naprosyn) Discontinued Reason: Patient no longer taking 500 mg PO BID PRN 30 tabs 7RF pain lorazepam Discontinued Reason: Patient no longer taking 1 mg PO BID PRN 60 tabs 0RF anxiety celecoxib Discontinued Reason: Patient no longer taking 200 mg PO BID 60 caps 3RF methylprednisolone (Medrol (Scott)) Discontinued Reason: Patient no longer taking PO PER PKG DIR 21 ea 0RF
[2025-03-08 13:25] VITALS: BP 142/80; PULSE 84; O2SAT 94; BMI 48.1
== END 2025-03-08 14:22 | disposition home or self-care (01) ==
LOC: HO.HMCH 13:21
PROVIDERS: PCP Internal Medicine
DX: J45.50 Severe persistent asthma, uncomplicated (principal); E66.01 Morbid (severe) obesity due to excess calories; Z68.42 Body mass index [BMI] 45.0-49.9, adult; I10 Essential (primary) hypertension; F32.A Depression, unspecified

== ENCOUNTER → 2025-03-08 13:20 | Outpatient (BNVA) | payer MEDICARE, MEDICAID, SELFPAY | PROVIDERS: PCP Internal Medicine | DX: J45.50 Severe persistent asthma, uncomplicated (principal); E66.01 Morbid (severe) obesity due to excess calories; Z68.42 Body mass index [BMI] 45.0-49.9, adult; I10 Essential (primary) hypertension; F32.A Depression, unspecified; Z71.3 Dietary counseling and surveillance | CPT/HCPCS: 96127; 99212 ==

== ENCOUNTER 2025-04-07 12:47 | Outpatient (AMB) | payer MEDICARE, MEDICAID, SELFPAY ==
--- NOTE | 2025-04-07 12:48 | MHC.OFFVIS ---
Vital Signs 04/07/25 12:49 Height 5 ft 6 in Weight 311 lb 15.265 oz BMI 50.3 BP 146/84 H Blood Pressure Location Lt brachial Position Sitting Pulse 70 Pulse Source Pulse Oximeter Pulse Oximetry (%) 95 Oxygen Delivery Method Room Air Intake Visit Reasons: asthma Market Maker Required: No Accompanied by: Self / Same As Patient Allergies amoxicillin Allergy (Unknown, Verified 04/07/25 12:52) Nausea cephalexin [Keflex] Allergy (Unknown, Verified 04/07/25 12:52) stomach upset Codeine Allergy (Unknown, Uncoded 03/08/25 13:26) Dizziness shellfish Allergy (Unknown, Uncoded 03/08/25 13:26) hives HPI HPI asthma: Details: 64-year-old lady, nonsmoker, with longstanding asthma and environmental allergies with suboptimal control. After the last office visit patient was approved for Dupixent, however she no longer wants to start on it. She has tried Trelegy and stated that it gave her chest pain, at this time she wants to try another controller inhaler. Her symptoms have suboptimal control. She did have 2D echocardiogram that was essentially normal. [facility] Medical History MARIE (obstructive sleep apnea) Morbid (severe) obesity due to excess calories Morbid obesity Back pain Anxiety and depression Osteoarthritis Obstructive sleep apnea Lumbar degenerative disc disease Asthma Obesity Surgical History History of section Family History Mother Mental health disorder Father Mental health disorder Other Substance use disorder Social History Housing: Apartment Alcohol intake: never Patient Tobacco Use Status: Never used Tobacco Tobacco use type: Cigarette e-Cigarette/Vaping Use: Never Used Second Hand Smoke Exposure: No service: No Current occupational status: disabled Current occupation: rt handed Cognitive needs: No Hearing needs: No Vision needs: Yes Review of Systems Const Denies chills, Denies fatigue, Denies fever(s), Denies weight gain and Denies weight loss Eyes Denies blurry vision and Denies itchy eyes ENT Denies dizziness Card Denies chest pain, Denies leg edema, Denies lightheadedness, Denies palpitations, Reports dyspnea on exertion, Denies orthopnea and Denies other Resp Denies cough, Reports dyspnea on exertion and Reports wheezing GI Denies hematochezia and Denies change in stool character Musc Denies abnormal gait, Denies muscle weakness, Denies numbness, Denies radiating pain into limb and Denies tingling Skin/Breast Denies rash Neuro Denies abnormal gait, Denies dizziness, Denies memory loss, Denies numbness and Denies tingling Psych Denies abnormal sleep pattern, Denies anxiety and Denies memory loss Endo Denies fatigue and Denies palpitations Edgard/Lymph Denies easy bruising Aller/Immun Denies itchy eyes, Denies seasonal rhinorrhea and Reports wheezing Physical Exam Vital Signs: Last Vital Signs Pulse 70 04/07/25 12:49 BP 146/84 H 04/07/25 12:49 Pulse Ox 95 04/07/25 12:49 Oxygen Delivery Method Room Air 04/07/25 12:49 BMI result Body Mass Index 50.3 Const General: no acute distress and alert Nutritional Appearance: obese Orientation/consciousness: Other orientation findings ( oriented) HEENT Head: Yes atraumatic Eyes General: appearance normal, both eyes and all related structures Sclerae: sclerae normal EOM: EOMs intact bilaterally Neck Neck: Yes supple Lymphatic: no lymphadenopathy noted Resp Effort & Inspection: normal respiratory effort and no use of accessory muscles Auscultation: wheezes (Mild expiratory bilateral) Cardio Rate: regular rate Rhythm: regular rhythm Heart sounds: no gallops, no murmurs and no rubs Skin General skin exam: other ( warm) Extrem General: No clubbing, No cyanosis and No edema Assessment & Plan Assessment & Plan (1) Severe persistent asthma: Code(s): J45.50 - Severe persistent asthma, uncomplicated Category: Medical Plan: Suboptimally controlled. Patient tried Trelegy and wants to try another control inhaler. Will switch it to Breztri. Continue albuterol MDI. Patient no longer wants to try Dupixent. Now with mild exacerbation, will treat with a course of prednisone. (2) Environmental allergies: Code(s): Z91.09 - Other allergy status, other than to drugs and biological substances Category: Medical Plan: Suboptimally controlled. Patient no longer wants to try Dupixent. Continue loratadine. Medications: New sguuctzfpk-mkvssnad-ysxbfehfvq 160-9-4.8 mcg/actuation (Breztri Aerosphere) 2 inhalations inhalation BID 1 ea 6RF prednisone 40 mg (2 x 20 mg) PO DAILY 10 tabs 0RF Discontinued dupilumab (Dupixent) Initial dose 600 mg subcutaneously, then 300 mg subcutaneously every 2 weeks Discontinued Reason: Doctor's Order 300 mg (2 mL) subcut Q2W 4 mL 12RF prednisone Take 4 tablets on days 1-2, take 3 tablets on days 3-4, take 2 tablets on days 5-6, take 1 tablet on days 7-8. Discontinued Reason: Doctor's Order 10 mg PO DIRECTED 20 tabs 0RF Coding Level of Care Code Est Pt Level 4 (48957) Diagnoses Severe persistent asthma J45.50 Environmental allergies Z91.09
[2025-04-07 12:49] VITALS: BP 146/84; PULSE 70; O2SAT 95; BMI 50.3
--- OUTSIDE RECORDS SUMMARY | 2025-04-07 13:26 | XMS_ITS | Clinical Summary ---
Author Organization [facility] ity Address [address] [place] [address] Care Team Providers Care Automotive Designer Name Role Phone Unavailable Primary Care Provider [...] - 2023-2 5 season) 2024 Influenza Vaccine (Season Ended) 2025 RSV Immunization Adult Patie nts (1 - 1-dose 75+ series) 2034 HIB [...] age to complete this topic Meningococcal B Vaccine Aged Out No l onger eligible based on patient's age to complete [...]
== END 2025-04-07 13:14 | disposition home or self-care (01) ==
LOC: HO.HPS 12:48
PROVIDERS: PCP Internal Medicine; Visit Provider Internal Medicine Pulmonary Disease
DX: J45.50 Severe persistent asthma, uncomplicated (principal); Z91.09 Other allergy status, other than to drugs and biological substances
CPT/HCPCS: 99214

== ENCOUNTER → 2025-04-07 12:47 | Outpatient (BNVA) | payer MEDICARE, MEDICAID, SELFPAY | PROVIDERS: PCP Internal Medicine; Visit Provider Internal Medicine Pulmonary Disease | DX: J45.50 Severe persistent asthma, uncomplicated (principal); Z91.09 Other allergy status, other than to drugs and biological substances | CPT/HCPCS: 99212 ==

== ENCOUNTER 2025-06-07 11:31 | Outpatient (REF) | payer MEDICARE, MEDICAID, SELFPAY | END 2025-06-07 11:32 | disposition home or self-care (01) | LOC: HO.LNP 11:31 | PROVIDERS: PCP Internal Medicine | DX: J45.50 Severe persistent asthma, uncomplicated (principal); R35.89 Other polyuria; E66.01 Morbid (severe) obesity due to excess calories; I10 Essential (primary) hypertension; F32.A Depression, unspecified; M54.2 Cervicalgia; G43.909 Migraine, unspecified, not intractable, without status migrainosus; R10.2 Pelvic and perineal pain; R32 Unspecified urinary incontinence | CPT/HCPCS: 81002; 87086; 96127; 99212 ==

== ENCOUNTER 2025-06-07 11:31 | Outpatient (AMB) | payer MEDICARE, MEDICAID, SELFPAY ==
--- NOTE | 2025-06-07 11:33 | A.OFFPC_ITS ---
Vital Signs 06/07/25 11:35 06/07/25 12:10 Height 5 ft 6 in Weight 317 lb 6 oz BMI 51.2 BP 142/80 H 124/86 Blood Pressure Location Lt brachial Rt radial Position Sitting Sitting Pulse 71 Pulse Oximetry (%) 97 Oxygen Delivery Method Room Air Intake Visit Reasons: 3 month f/u Bottom Steep Tender Required: No Accompanied by: Self / Same As Patient Allergies amoxicillin Allergy (Unknown, Verified 06/07/25 11:42) Nausea cephalexin (Keflex) Allergy (Unknown, Verified 06/07/25 11:42) stomach upset Codeine Allergy (Unknown, Uncoded 06/07/25 11:42) Dizziness shellfish Allergy (Unknown, Uncoded 06/07/25 11:42) hives Medication List - Last Reconciled 06/07/25 by Marely Allan PA-C [id number] 160-9-4.8 mcg/actuation (Breztri Aerosphere) 2 inhalations inhalation BID cyclobenzaprine 10 mg PO TID fexofenadine 180 mg PO DAILY 90 days prednisone 40 mg (2 x 20 mg) PO DAILY trazodone 50 mg PO BEDTIME Tobacco use date assessed: 06/07/25 Fall risk assessment: 1 Fall in past year Last assessed Fall Risk: 06/07/25 Dental Screening Dental Screen Date: 06/07/25 Did you have a dental visit in the last 12 months?: No Did you have a dental problem in the last 6 months where you did not have access to dental care?: No Was dental information given to patient?: No HPI 3 month f/u HPI Details 64-year-old female with past medical his tory of obstructive sleep apnea, asthma, obesity, hypertension last seen 02/2025 coming in for follow up. In review of the notes, patient was seen by pulmonology 03/2025 plan to switch to Breztri and continue on albuterol. Presenting with headache and neck pain. The headache began three days ago, with throbbing pain on the left side accompanied by nausea and photophobia. She has a history of migraines, usually stress-induced, but this episode is longer in duration and unresponsive to Tylenol. The neck pain is muscular, possibly due to posture, with tenderness and limited motion. Urinary incontinence has been ongoing for months, with urgency and pressure, not reaching the bathroom in time. She also has associated pelvic pressure which has been going on during that time as well. [facility] Medical History MARIE (obstructive sleep apnea) Morbid (severe) obesity due to excess calories Morbid obesity Back pain Anxiety and depression Osteoarthritis Obstructive sleep apnea Lumbar degenerative disc disease Asthma Obesity Surgical History History of section Family History Mother Mental health disorder Father Mental health disorder Other Substance use disorder Social History Housing: Apartment Alcohol intake: never Patient Tobacco Use Status: Never used Tobacco Tobacco use type: Cigarette e-Cigarette/Vaping Use: Never Used Second Hand Smoke Exposure: No service: No Current occupational status: disabled Current occupation: rt handed Cognitive needs: No Hearing needs: No Vision needs: Yes Questionnaire Thrive Questionnaire Date Thrive assessed: 06/07/25 I am a: Patient What is your living situation today?: I have a steady place to live Within the past 12 months, did the food you bought not last and you didn't have the money to get more?: Sometimes True Within the past 12 months, did you worry whether your food would run out before you got money to buy more?: Often true Do you have trouble paying for medicines?: No Do you have trouble getting transportation to medical appointments?: No Do you have trouble taking care of your child, family member or friend?: I choose not to answer this question Do you have trouble with day-to-day activities such as bathing, preparing meals, shopping, managing finances, etc.?: Yes Are you currently unemployed and looking for a job?: No Are you interested in more education?: No Currently or been in a relationship where the following occur: I choose not to answer THRIVE Score: 2 AUDIT C Alcohol Use Questionnaire (AUDIT-C) 1. How often do you have a drink containing alcohol?: Never Total Score: 0 NERISSA-7 AMB Questionnaire NERISSA-7 Date NERISSA - 7 assessed: 07/21/25 Feeling nervous, anxious, or on edge: 1 = Several days Not being able to stop or control worryin = Several days Worrying too much about different things: 2 = More than half the days Trouble relaxin = More than half the days Being so restless that it is hard to sit still: 1 = Several days Becoming easily annoyed or irritable: 3 = Nearly every day Feeling afraid as if something awful might happen: 2 = More than half the days Total NERISSA-7 score (0-4 normal; 5-9 mild; 10-14 moderate; 15-21 severe): 12 Source: Developed by Drs. Adrian Soto, Candy Lynn, Urban Mccarthy and colleagues, with an educational akila from [employer]. NERISSA-7 Assessment Billing NERISSA-7 Assessment Tool: NERISSA-7 Assessment 04489 Review of Systems Const Denies body aches, Denies chills, Denies fever(s), Reports headache(s) and Denies poor appetite Eyes Reports no additional complaints ENT Reports Normal hearing present, Denies dysphagia, Denies dizziness, Reports headache(s) and Denies odynophagia Card Denies chest pain, Denies syncope, Denies edema, Denies irregular heart rhythm, Denies lightheadedness and Denies dyspnea Resp Denies cough and Denies dyspnea GI Denies abdominal pain, Denies constipation, Denies dysphagia, Denies diarrhea, Denies nausea, Denies odynophagia and Denies vomiting Reports as per HPI Musc Reports as per HPI and Denies abnormal gait Skin/Breast Reports system reviewed and no additional complaints, except as documented Neuro Reports Normal hearing present, Denies abnormal gait, Denies dizziness, Denies syncope and Reports headache(s) Psych Reports no additional complaints Physical exam (Primary Care) Vital Signs: Last Vital Signs Pulse 71 06/07/25 11:35 BP 124/86 06/07/25 12:10 Pulse Ox 97 06/07/25 11:35 Oxygen Delivery Method Room Air 06/07/25 11:35 BMI result Body Mass Index 51.2 Tobacco/Smoking Status: Tobacco use Status Tobacco use date assessed 06/07/25 06/07/25 11:41 Patient Tobacco Use Status Never used Tobacco 06/07/25 11:41 Tobacco use type Cigarette 06/07/25 11:41 e-Cigarette/Vaping Use Never Used 06/07/25 11:41 Thrive Assessment: Date of Thrive Assessment Date Thrive assessed 06/07/25 06/07/25 11:41 Currently or been in a relationship where the following occur: I choose not to answer Const General: cooperative, healthy appearing, comfortable and no acute distress Orientation/consciousness: patient oriented x3 [facility] Head: Yes normocephalic Ears: hearing grossly normal bilaterally General nose exam: Normal external nose present Eyes General: appearance normal, both eyes and all related structures Conjunctivae: conjunctivae normal Pupils: Equal, round and reactive pupils present EOM: No Nystagmus present Neck Other: tenderness to palpation over left SCM - pain with lateral bending and rotation of the neck Neck: Yes full ROM and Yes no lymphadenopathy Resp Effort & Inspection: normal respiratory effort Auscultation: clear to auscultation bilaterally, no crackles, no rales, no rhonc hi and no wheezes Cardio Rate: regular rate Rhythm: regular rhythm GI Palpation (GI): Soft to palpation, not firm, nontender, no guarding and not rigid General: Yes no CVA tenderness Back/Spine/Pelvis Other: no tenderness over the cervical spine Back: no CVA tenderness Skin General skin exam: no rashes or lesions noted Neuro General: patient oriented x3 Cranial nerves: Yes CN's II-XII intact bilaterally, Yes Facial sensation intact/muscles of mastication intact, Yes Equal, round and reactive pupils present, Yes Normal facial strength present, Yes Midline tongue present, Yes Normal hearing present, Yes Ability to bilaterally rotate head present, Yes Ability to bilaterally elevate shoulders present and No Nystagmus present Cognition (Neuro): normal cognition Gait exam (Neuro): Normal gait present Motor exam (neuro): 5/5 motor strength present throughout Extrem General: Yes normal to inspection, Yes full ROM and No edema Psych Affect: normal affect Attitude: cooperative Insight: Good insight present (Psych) Judgement: Good judgement present (Psych) Results AMB Urinalysis Dipstick UR Leukocytes Negative Last Edit by Marlin Lynn CMA on 06/07/25 12: 25 UR Nitrite Negative Last Edit by Marlin Lynn CMA on 06/07/25 12:25 UR Urobilinogen Normal Last Edit by Marlin Lynn CMA on 06/07/25 12: 25 UR Protein Negative Last Edit by Marlin Lynn CMA on 06/07/25 12:25 UR Ph 6.0 Last Edit by Marlin Lynn, GERRI on 06/07/25 12:25 UR Blood Negative Last Edit by Marlin Lynn, GERRI on 06/07/25 12:25 UR Specific Bern 1.005 Last Edit by Marlin Lynn, GERRI on 06/07/25 12:25 UR Ketone Negative Last Edit by Marlin Lynn CMA on 06/07/25 12:25 UR Bilirubin Negative Last Edit by Marlin Lynn, GERRI on 06/07/25 12:2 5 UR Glucose Negative Last Edit by Marlin Lynn CMA on 06/07/25 12:25 Results Reviewed Results Reviewed: Laboratory Last Values Urine pH (Clinic) 6.0 06/07/25 12:24 Specific Bern (Clinic) 1.005 06/07/25 12:24 Ur Protein (Clinic) Negative 06/07/25 12:24 Ur Ketones (Clinic) Negative 06/07/25 12:24 Urine Blood (Clinic) Negative 06/07/25 12:24 Urine Nitrite Negative 06/07/25 12:24 Urine Bilirubin (Clinic) Negative 06/07/25 12:24 Urobilinogen (Clinic) Normal 06/07/25 12:24 Leukocyte Esterase (Clinic) Negative 06/07/25 12:24 Urine Glucose (Clinic) Negative 06/07/25 12:24 Coding Level of Care Code Est Pt Level 4 (99760) Diagnoses Severe persistent asthma J45.50 Morbid (severe) obesity due to excess calories E66.01 Hypertension I10 Depression F32.A Neck pain on left side M54.2 Migraine G43.909 Pelvic pressure in female R10.2 Urinary incontinence R32 Additional Codes NERISSA-7 Assessment Billing - NERISSA-7 Assessment Tool: NERISSA-7 Assessment 28894 ([id number]) Assessment & Plan Assessment & Plan (1) Severe persistent asthma: Code(s): J45.50 - Severe persistent asthma, uncomplicated Category: Medical Plan: Asthma is not well controlled at this time and she had recent exacerbation requiring antibiotics and steroids. She has been on multiple inhalers as well as Montelukast in the past without good benefit and significant side effects. She is following with Pulmonology as well who will continue to manage her asthma at this time. (2) Morbid (severe) obesity due to excess calories: Comment: HAD A LONG DISCUSSION WITH HER. STRESSED THAT SHE HAS TO LOSE WEIGHT, AT LEAST 10-15 LB TO START WITH. LOW CARB DIET EXPLAINED. SHE IS WELL MOTIVATED TO DO THAT. Code(s): E66.01 - Morbid (severe) obesity due to excess calories Category: Medical Plan: Healthy diet and regular exercise is encouraged. (3) Hypertension: Code(s): I10 - Essential (primary) hypertension Category: Medical Plan: Continue on current blood pressure medication. Avoid salt intake and encourage healthy diet and regular exercise. Blood pressure normalized when retaken (4) Depression: Code(s): F32.A - Depression, unspecified Category: Medical Plan: Patient endorsing feelings of depression and difficulty sleeping. PLan to continue on the Trazodone for depression and sleep. (5) Neck pain on left side: Code(s): M54.2 - Cervicalgia Category: Medical Plan: Patient having neck pain in the left side consistent with a muscle strain. Recommend heating pads, Tylenol as needed and gentle stretching of the neck. If symptoms do not improve or if they worsen please reach out to the office. No neck stiffness, fevers, fatigue or other red flag symptoms. (6) Migraine: Code(s): G43.909 - Migraine, unspecified, not intractable, without status migrainosus Category: Medical Plan: Patient having a history of migraines and her current presentation consistent with a migrainous headache. Patient was given sumatriptan and explained this may not relieve the headache as it is best taken at the start of the migraine. No focal neurological deficit noted on exam and no weakness. I reviewed with the patient red flag symptoms and when to present for re-evaluation (7) Pelvic pressure in female: Code(s): R10.2 - Pelvic and perineal pain Category: Medical Plan: Patient complaining of pelvic pressure worsening with standing. She states she will stand and feel a sudden pressure in her pelvis and we will occasionally cause urinary incontinence. This has been ongoing for the last 5-6 months and has been worsening during that time. Urinalysis in the office does not reveal any infection at this time. Plan to obtain pelvic and transvaginal ultrasound to assess for pelvic pressure and referral was placed to Urology as well. (8) Urinary incontinence: Code(s): R32 - Unspecified urinary incontinence Category: Medical Plan: See above plan Plan The patient will begin treatment with sumatriptan for her migraines, as she has not previously used migraine-specific medications. The headache is thought to be worsened by muscular neck pain, and she is advised to use wet heat and perform gentle neck stretching exercises to relieve the muscular tension. A urine test will be performed to check for infection related to her urinary incontinence. She should continue with timed voiding as a management approach. Her hypertension and obesity will be monitored, with a focus on weight management to help control her blood pressure. The management of her anxiety and PTSD with trazodone will continue, as it has been beneficial for her sleep and anxiety. This note was constructed using voice recognition software. While every effort has been made to ensure accuracy and oyster sorter, still areas may have been included sometimes these areas may affect the content or meeting of the given symptoms. Total time spent caring for the patient today was 30 minutes. This includes time spent before the visit reviewing the chart, time spent during the visit, and time spent after the visit and documentation. Patient was informed and verbally consented to the use of an ambient scribe for clinic note documentation during this visit. Orders: Orders AMB Urinalysis Dipstick 06/07/25 Z13.9 - Encounter for screening, unspecified US pelvic and transvaginal Today R10.2 - Pelvic and perineal pain Urine Culture 06/07/25 R35.89 - Other polyuria Referrals Urology Referral R10.2 - Pelvic and perineal pain, R32 - Unspecified urinary incontinence, R35.89 - Other polyuria Medications: New sumatriptan succinate take 1 tab at onset of headache; if no relief may repeat 1 tab after at least 2 hrs; max = 4 tabs/24 hr PO 20 tabs 0RF
[2025-06-07 11:35] VITALS: BP 142/80; PULSE 71; O2SAT 97; BMI 51.2
[2025-06-07 12:10] VITALS: BP 124/86
--- OUTSIDE RECORDS SUMMARY | 2025-06-07 12:40 | XMS_ITS | Clinical Summary ---
Author Organization [facility] ity Address [address] [place] [address] Care Team Providers Care Claim Analyst Name Role Phone Unavailable Primary Care Provider [...] Vaccines (1 of 2) 2009 COVID-19 Vaccine (2023-2 5 season) 2024 Depression Screening 11/18/2024 Influenza Vaccine (#1) 2025 RSV Immunization Adult Patie nts (1 [...]
== END 2025-06-07 12:35 | disposition home or self-care (01) ==
LOC: HO.HMCH 11:32
PROVIDERS: PCP Internal Medicine
DX: J45.50 Severe persistent asthma, uncomplicated (principal); E66.01 Morbid (severe) obesity due to excess calories; Z68.43 Body mass index [BMI] 50.0-59.9, adult; I10 Essential (primary) hypertension; F32.A Depression, unspecified; M54.2 Cervicalgia; G43.909 Migraine, unspecified, not intractable, without status migrainosus; R10.2 Pelvic and perineal pain; R32 Unspecified urinary incontinence

== ENCOUNTER 2025-06-30 16:01 | Outpatient (REF) | payer MEDICARE, MEDICAID, SELFPAY ==
--- NOTE | ~2025-06-30 | XR_ITS ---
EXAMINATION: XR CHEST CLINICAL INFORMATION: R05.9 - Cough, unspecified COMPARISON: February 23, 2024 TECHNIQUE: 2 views of the chest were obtained. FINDINGS: Lungs: No focal consolidation. No evidence of pulmonary edema. Pleura: No pleural effusion or pneumothorax. Heart/Mediastinum: Normal cardiomediastinal silhouette. Bones/Soft Tissues: Unremarkable XR/XR chest 2V IMPRESSION: No acute cardiopulmonary process. Electronically signed by: Mayra Pedraza MD 07/01/2025 07:20 AM EDT
--- OUTSIDE RECORDS SUMMARY | 2025-06-30 16:05 | XMS_ITS | Clinical Summary ---
Author Organization [facility] ity Address [address] [place] [address] Care Team Providers Care Fixed Income Manager Name Role Phone Unavailable Primary Care Provider [...]
[2025-06-30 17:30] LABS: Resp Syncy Virus RNA Qual PCR NEGATIVE (Negative); SARS COV2 PCR INHOUSE POSITIVE (Negative)
== END 2025-06-30 16:02 | disposition home or self-care (01) ==
LOC: HO.XRAY 16:01
DX: R09.89 Other specified symptoms and signs involving the circulatory and respiratory systems (principal); R05.9 Cough, unspecified; Z03.818 Encounter for observation for suspected exposure to other biological agents ruled out
CPT/HCPCS: 71046; 87637

== ENCOUNTER → 2025-06-30 16:13 | Outpatient (BNV) | payer MEDICARE, MEDICAID, SELFPAY | PROVIDERS: Visit Provider Radiology Body Imaging | DX: R05.9 Cough, unspecified (principal) | CPT/HCPCS: 71046 ==

== ENCOUNTER 2025-07-14 13:13 | Outpatient (AMB) | payer MEDICARE, MEDICAID, SELFPAY ==
[2025-07-14 13:15] VITALS: BP 122/88; PULSE 76; O2SAT 97; BMI 51.8
--- NOTE | 2025-07-14 13:15 | MHC.OFFVIS ---
Vital Signs 07/14/25 13:15 Height 5 ft 6 in Weight 321 lb BMI 51.8 BP 122/88 Blood Pressure Location Rt brachial Position Sitting Pulse 76 Pulse Source Pulse Oximeter Pulse Oximetry (%) 97 Oxygen Delivery Method Room Air Intake Visit Reasons: Asthma Allergies amoxicillin Allergy (Unknown, Verified 07/14/25 13:19) Nausea cephalexin (Keflex) Allergy (Unknown, Verified 07/14/25 13:19) stomach upset Codeine Allergy (Unknown, Uncoded 06/07/25 11:42) Dizziness shellfish Allergy (Unknown, Uncoded 06/07/25 11:42) hives HPI HPI Asthma: Details: 64-year-old lady, nonsmoker, with longstanding asthma and environmental allergies. Patient previously was tried on Dupixent, however she did not want continue using it. Currently she is using Breztri and albuterol MDI with good control of her underlying symptoms. She rarely needs her Patria for underlying allergic component. [facility] Medical History MARIE (obstructive sleep apnea) Morbid (severe) obesity due to excess calories Morbid obesity Back pain Anxiety and depression Osteoarthritis Obstructive sleep apnea Lumbar degenerative disc disease Asthma Obesity Surgical History History of section Family History Mother Mental health disorder Father Mental health disorder Other Substance use disorder Social History Housing: Apartment Alcohol intake: never Patient Tobacco Use Status: Never used Tobacco Tobacco use type: Cigarette e-Cigarette/Vaping Use: Never Used Second Hand Smoke Exposure: No service: No Current occupational status: disabled Current occupation: rt handed Cognitive needs: No Hearing needs: No Vision needs: Yes Review of Systems Const Denies daytime sleepiness, Denies excessive sweating, Denies fatigue, Denies fever(s), Denies lethargy, Denies malaise, Denies night sweats, Denies snoring and Denies weight loss Eyes Denies blurry vision and Denies itchy eyes ENT Denies nasal congestion, Denies post nasal drip, Denies sinus pain, Denies sinus pressure and Denies other ( Thrush) Card Denies chest pain, Denies pedal edema, Denies dyspnea, Denies orthopnea and Denies paroxysmal nocturnal dyspnea Resp Denies cough, Denies hemoptysis, Denies excessive phlegm production, Denies dyspnea, Denies snoring and Denies wheezing GI Denies abdominal pain and Denies heartburn Musc Denies myalgias, Denies arthralgias and Denies joint swelling Skin/Breast Denies rash Neuro Denies memory loss and Denies seizure-like activity Psych Denies abnormal sleep pattern, Denies anxiety and Denies memory loss Endo Denies excessive sweating, Denies fatigue and Denies heat intolerance Edgard/Lymph Denies easy bruising Aller/Immun Denies itchy eyes, Denies seasonal rhinorrhea and Denies wheezing Physical Exam Vital Signs: Last Vital Signs Pulse 76 07/14/25 13:15 BP 122/88 07/14/25 13:15 Pulse Ox 97 07/14/25 13:15 Oxygen Delivery Method Room Air 07/14/25 13:15 BMI result Body Mass Index 51.8 Const General: no acute distress and alert Nutritional Appearance: obese Orientation/consciousness: Other orientation findings ( oriented) HEENT Head: Yes atraumatic Eyes General: appearance normal, both eyes and all related structures Sclerae: sclerae normal EOM: EOMs intact bilaterally Neck Neck: Yes supple Lymphatic: no lymphadenopathy noted Resp Effort & Inspection: normal respiratory effort and no use of accessory muscles Auscultation: clear to auscultation bilaterally Cardio Rate: regular rate Rhythm: regular rhythm Heart sounds: no gallops, no murmurs and no rubs Skin General skin exam: other ( warm) Extrem General: No clubbing, No cyanosis and No edema Assessment & Plan Assessment & Plan (1) Severe persistent asthma: Code(s): J45.50 - Severe persistent asthma, uncomplicated Category: Medical Plan: Well controlled on Breztri and albuterol MDI. Continue current regimen. (2) Environmental allergies: Code(s): Z91.09 - Other allergy status, other than to drugs and biological substances Category: Medical Plan: Controlled on as needed Patria. Continue current regimen. Coding Level of Care Code Est Pt Level 4 (75974) Diagnoses Severe persistent asthma J45.50 Environmental allergies Z91.09
--- OUTSIDE RECORDS SUMMARY | 2025-07-14 13:55 | XMS_ITS | Clinical Summary ---
Author Organization [facility] ity Address [address] [place] [address] Care Team Providers Care Customer Advocacy Manager Name Role Phone Unavailable Primary Care [...]
== END 2025-07-14 13:28 | disposition home or self-care (01) ==
LOC: HO.HPS 13:14
PROVIDERS: PCP Internal Medicine; Visit Provider Internal Medicine Pulmonary Disease
DX: J45.50 Severe persistent asthma, uncomplicated (principal); Z91.09 Other allergy status, other than to drugs and biological substances
CPT/HCPCS: 99214

== ENCOUNTER → 2025-07-14 13:13 | Outpatient (BNVA) | payer MEDICARE, MEDICAID, SELFPAY | PROVIDERS: PCP Internal Medicine; Visit Provider Internal Medicine Pulmonary Disease | DX: J45.50 Severe persistent asthma, uncomplicated (principal); Z91.09 Other allergy status, other than to drugs and biological substances | CPT/HCPCS: 99212 ==

== ENCOUNTER 2025-07-26 11:10 | Outpatient (AMB) | payer MEDICARE, MEDICAID, SELFPAY ==
--- NOTE | 2025-07-26 11:28 | MHC.PC.OV ---
Vital Signs 07/26/25 11:29 Height 5 ft 6 in Weight 318 lb 4 oz BMI 51.4 BP 132/64 Blood Pressure Location Lt brachial Position Sitting Pulse 68 Pulse Source Pulse Oximeter Temp 97.1 F Temp Source Temporal Artery Scan Pulse Oximetry (%) 95 Oxygen Delivery Method Room Air Intake Visit Reasons: Breathing issue Intake Note: Patient is here to follow up on Breathing issues. Technical Support Assistant Required: No Digital Marketing Consultant: Not Required per policy Accompanied by: Self / Same As Patient Allergies amoxicillin Allergy (Unknown, Verified 07/26/25 11:29) Nausea cephalexin (Keflex) Allergy (Unknown, Verified 07/26/25 11:29) stomach upset Codeine Allergy (Unknown, Uncoded 07/26/25 11:29) Dizziness shellfish Allergy (Unknown, Uncoded 07/26/25 11:29) hives Tobacco use date assessed: 07/26/25 Fall risk assessment: 1 Fall in past year (06/2025) Last assessed Fall Risk: 07/26/25 Dental Screening Dental Screen Date: 06/07/25 HPI HPI Comments History of Present Illness Details The patient is a 64-year-old female presenting with breathing difficulties and generalized weakness. She reports a history of Chronic Obstructive Pulmonary Disease (COPD) and asthma, which have been exacerbated following a recent COVID-19 infection approximately three weeks ago. The patient experienced severe symptoms during the COVID-19 infection, including fever and chills, and was bedridden for seven to eight days. Post-COVID, she continues to experience significant weakness and dyspnea on exertion. Her cough and sputum improved. She uses an inhaler, which provides some relief, but reports chest pain as a possible side effect. The patient has a known heart valve disorder, which was identified during previous evaluations, and she experiences swelling in her right ankle, which she attributes to this condition. She has not received any recent treatment for this condition. The patient also reports a history of arthritis, affecting multiple joints, and a bone spur in the neck causing pain and limited mobility in her arm. She has tried physical therapy in the past without significant improvement. Additionally, she has developed painful cysts on her hand over the past year, which have not been evaluated by a specialist. [facility] Medical History (Updated 07/26/25 @ 13:53 by Leticia Chris MD) COVID MARIE (obstructive sleep apnea) Morbid (severe) obesity due to excess calories Morbid obesity Back pain Anxiety and depression Osteoarthritis Obstructive sleep apnea Lumbar degenerative disc disease Asthma Obesity Surgical History History of section Family History Mother Mental health disorder Father Mental health disorder Other Substance use disorder Social History Housing: Apartment Alcohol intake: never Patient Tobacco Use Status: Never used Tobacco Tobacco use type: Cigarette e-Cigarette/Vaping Use: Never Used Second Hand Smoke Exposure: No service: No Current occupational status: disabled Current occupation: rt handed Cognitive needs: No Hearing needs: No Vision needs: Yes Questionnaire Thrive Questionnaire Date Thrive assessed: 06/01/25 I am a: Patient What is your living situation today?: I have a steady place to live Within the past 12 months, did the food you bought not last and you didn't have the money to get more?: Sometimes True Within the past 12 months, did you worry whether your food would run out before you got money to buy more?: Often true Do you have trouble paying for medicines?: No Do you have trouble getting transportation to medical appointments?: No Do you have trouble taking care of your child, family member or friend?: I choose not to answer this question Do you have trouble with day-to-day activities such as bathing, preparing meals, shopping, managing finances, etc.?: Yes Are you currently unemployed and looking for a job?: No Are you interested in more education?: No Currently or been in a relationship where the following occur: I choose not to answer THRIVE Score: 2 NERISSA-7 AMB Questionnaire NERISSA-7 Date NERISSA - 7 assessed: 06/07/25 Source: Developed by Drs. Adrian Soto, Candy Lynn, Urban Mccarthy and colleagues, with an educational akila from [employer]. Review of Systems Const Details: - General: Reports feeling very weak, especially [id number] infection. - Respiratory: Reports dyspnea on exertion, persistent wheezing, and cough with phlegm production. - Cardiovascular: Reports chest pain and swelling in the right ankle. - Musculoskeletal: Reports pain and limited mobility due to arthritis and bone spur. - Dermatological: Reports painful cysts on the right hand. Physical exam (Primary Care) Vital Signs: Last Vital Signs Temp 97.1 F 07/26/25 11:29 Pulse 68 07/26/25 11:29 BP 132/64 07/26/25 11:29 Pulse Ox 95 07/26/25 11:29 Oxygen Delivery Method Room Air 07/26/25 11:29 BMI result Body Mass Index 51.4 Tobacco/Smoking Status: Tobacco use Status Tobacco use date assessed 07/26/25 07/26/25 11:39 Patient Tobacco Use Status Never used Tobacco 07/26/25 11:39 Tobacco use type Cigarette 07/26/25 11:39 e-Cigarette/Vaping Use Never Used 07/26/25 11:39 Thrive Assessment: Date of Thrive Assessment Date Thrive assessed 06/01/25 07/26/25 11:39 Currently or been in a relationship where the following occur: I choose not to answer Const Other: GENERAL APPEARANCE NAD, activity normal for age, well developed/ well nourished, no cyanosis, pallor, or diaphoresis. EYES lids/conjunctiva normal. EARS/NOSE/THROAT Mucous membranes moist, nares normal, lips/teeth normal uvula midline without oral pharyngeal erythema, exudate or swelling TMs normal bilaterally. No lymphangitis/lymphedema. HEAD/NECK normocephalic atraumatic, no facial trauma, neck is supple. RESPIRATORY respiratory effort normal, speaks in full sentences, no tripod position, no accessory muscle use. WHEEZING bilateral. CARDIAC Regular rate and rhythm, no edema. ABDOMINAL Soft, ND/NT. No evidence of fluid wave. No pulsatile masses on exam, rebound tenderness, Zavala sign or pain over Mcburney's point. Musculoskeletal: Swelling noted in right ankle, tenderness upon palpation. CYSTS ON RIGHT PALM. SKIN Warm, pink and dry. No rashes, dermatoses, petechiae or lesions. NEUROLOGICAL Speech is clear and appropriate. Normal level of consciousness. Gait and coordination are normal. 5/5 strength in all extremities. PSYCH Normal mood and affect. Judgement/competence is appropriate Coding Level of Care Code Est Pt Level 2 (65649) Diagnoses Moderate persistent asthma without complication J45.40 Asthma complication type: uncomplicated Asthma persistence: persistent Asthma severity: moderate Primary osteoarthritis, unspecified site M19.91 Osteoarthritis location: unspecified site Osteoarthritis type: primary Bone cyst of hand M85.649 Ankle swelling M25.473 Assessment & Plan Assessment & Plan (1) Asthma: Code(s): J45.909 - Unspecified asthma, uncomplicated Category: Medical Qualifiers: Asthma complication type: uncomplicated Asthma persistence: persistent Asthma severity: moderate Qualified Code(s): J45.40 - Moderate persistent asthma, uncomplicated Plan: The patient will continue using her prescribed inhalers to manage asthma symptoms. A short course of oral steroids has been prescribed to address the exacerbation of symptoms [id number] (2) Osteoarthritis: Code(s): M19.90 - Unspecified osteoarthritis, unspecified site Category: Medical Qualifiers: Osteoarthritis location: unspecified site Osteoarthritis type: primary Qualified Code(s): M19.91 - Primary osteoarthritis, unspecified site Plan: The patient is advised to alternate between Tylenol and ibuprofen for pain management. (3) Bone cyst of hand: Code(s): M85.649 - Other cyst of bone, unspecified hand Category: Medical Plan: Referral to an orthopedic surgeon is recommended for evaluation of the hand cysts. (4) Ankle swelling: Code(s): M25.473 - Effusion, unspecified ankle Category: Medical Plan: An ultrasound of the lower extremities is ordered to rule out thrombus due to unilateral ankle swelling. Plan As above. Orders: Orders PT Evaluation and Treatment Today R53.1 - Weakness US venous duplex LE BI Today M25.473 - Effusion, unspecified ankle Medications: New prednisone 40 mg (2 x 20 mg) PO DAILY 10 tabs 0RF 5 days
[2025-07-26 11:29] VITALS: BP 132/64; PULSE 68; TEMP 36.2; O2SAT 95; BMI 51.4
--- OUTSIDE RECORDS SUMMARY | 2025-07-26 13:53 | XMS_ITS | Clinical Summary ---
Author Organization [facility] ity Address [address] [place] [address] Care Team Providers Care Receiver Stocker Name Role Phone Unavailable Primary Care Provider [...]
== END 2025-07-26 12:17 | disposition home or self-care (01) ==
LOC: HO.HMCH 11:11
PROVIDERS: Visit Provider Internal Medicine
DX: J45.40 Moderate persistent asthma, uncomplicated (principal); M19.91 Primary osteoarthritis, unspecified site; M85.649 Other cyst of bone, unspecified hand; M25.473 Effusion, unspecified ankle

== ENCOUNTER → 2025-07-26 11:10 | Outpatient (BNVA) | payer MEDICARE, MEDICAID, SELFPAY | PROVIDERS: Visit Provider Internal Medicine | DX: J45.40 Moderate persistent asthma, uncomplicated (principal); M19.91 Primary osteoarthritis, unspecified site | CPT/HCPCS: 99212 ==

== ENCOUNTER 2025-08-03 11:19 | Outpatient (AMB) | payer MEDICARE, MEDICAID, SELFPAY ==
[2025-08-03 11:24] VITALS: BP 120/70; PULSE 63; O2SAT 97; BMI 51.8
--- NOTE | 2025-08-03 11:27 | A.OFFVIS_ITS ---
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 Required: No Accompanied by: Self / Same As Patient Allergies amoxicillin Allergy (Unknown, Verified 08/03/25 11:45) Nausea cephalexin (Keflex) Allergy (Unknown, Verified 08/03/25 11:45) stomach upset Codeine Allergy (Unknown, Uncoded 08/03/25 11:45) Dizziness shellfish Allergy (Unknown, Uncoded 08/03/25 11:45) hives Medication List - Last Reconciled 08/03/25 by Marely Allan PA-C [Adult pull-ups As directed] cvyrppzeiu-gvlksemg-mixhukxipa 160-9-4.8 mcg/actuation (Breztri Aerosphere) 2 inhalations inhalation BID cyclobenzaprine 10 mg PO TID fexofenadine 180 mg PO DAILY 90 days prednisone 40 mg (2 x 20 mg) PO DAILY 5 days sumatriptan succinate take 1 tab at onset of headache; if no relief may repeat 1 tab after at least 2 hrs; max = 4 tabs/24 hr PO trazodone 50 mg PO BEDTIME HPI MILVIA SIDNEY/ROSSY HPI Details 64-year-old female with past medical his tory of obstructive sleep apnea, asthma, obesity, hypertension last seen 07/2025 coming in for annual wellness visit. Presenting with fall-related injuries. She has fallen twice in the past six months, with the latest incident occurring four to five days ago due to a high step at her home. She reports bruising and soreness on the right side, with num bness that has improved. She experiences shooting pain in her leg and limited arm movement, possibly related to arthritis. Mammogram: refused Eye exam:Dr. Chapa yearly DEXA: ordered today Pap smear: refused Colonoscopy: refused Vaccines: due for Td and PCV due Td given today [facility] Medical History COVID MARIE (obstructive sleep apnea) Morbid (severe) obesity due to excess calories Morbid obesity Back pain Anxiety and depression Osteoarthritis Obstructive sleep apnea Lumbar degenerative disc disease Asthma Obesity Surgical History History of section Family History Mother Mental health disorder Father Mental health disorder Other Substance use disorder Social History Housing: Apartment Alcohol intake: never Patient Tobacco Use Status: Never used Tobacco Tobacco use type: Cigarette e-Cigarette/Vaping Use: Never Used Second Hand Smoke Exposure: No service: No Current occupational status: disabled Current occupation: rt handed Cognitive needs: No Hearing needs: No Vision needs: Yes Questionnaire Medicare Wellness Checkup What [age] 65-68 What gender do you identify with?: female During the past 4 weeks, how much have you been bothered by emotional problems such as feeling anxious, depressed, irritable, sad or downhearted, and blue?: moderately During the past 4 weeks, has your physical & emotional health limited your social activities with family, friends, neighbors, or groups?: quite a bit During the past 4 weeks, how much bodily pain have you generally had?: moderate pain During the past 4 weeks, was someone available to help you if you needed & wanted help?: yes, some During the past 4 weeks, what was the hardest physical activity you could do for at least 2 minutes?: heavy Can you get to places out of walking distance without help? (For eg., can you travel alone on buses, taxis or drive your car?): No Can you go shopping for groceries or clothes without someone's help?: Yes Can you prepare your own meals?: Yes Can you do your housework without help?: No Because of any health problems, do you need the help of another person with your personal care needs such as eating, bathing, dressing or getting around the house?: No Can you handle your own money without help?: Yes During the past 4 weeks, how would you rate your health in general?: fair During the past 4 weeks how have things been going for you?: pretty bad Are you having difficulties driving your car?: no Do you always fasten your seat belt when you are in a car?: yes, usually During past 4 weeks, have you been bothered by the following: never: Trouble eating well?, Teeth or denture problems? and Problems using the telephone?, often: Sexual problems? and always: Falling or dizzy when standing up and Tiredness or fatigue? Have you fallen 2 or more times in the past year?: Yes Are you afraid of falling?: Yes Are you a smoker?: no During the past 4 weeks, how many drinks of wine, beer, or other alcoholic beverages did you have?: no alcohol at all Do you exercise for about 20 minutes 3 or more times a week?: no, I usually do not exercise this much Have you been given information to help with the following?: no: Hazards in your house that might hurt you? and no: Keeping track of your medications? How often do you have trouble taking medicines the way you have been told to take them?: I always take medicine as prescribed How confident are you that you can control & manage most of your health problems?: not very confident What is your race?: White PHQ-9 Over the last 2 weeks, how often have you been bothered by any of the following problems? 1. Little interest or pleasure in doing things: several days 2. Feeling down, depressed, or hopeless: several days 3. Trouble falling or staying asleep, or sleeping too much: not at all 4. Feeling tired or having little energy: nearly every day 5. Poor appetite or overeating: several days 6. Feeling bad about yourself - or that you are a failure or have let yourself or your family down: not at all 7. Trouble concentrating on things, such as reading the newspaper or watching television: nearly every day 8. Moving or speaking so slowly that other people could have noticed. Or the opposite - being so fidgety or restless that you have been moving around a lot more than usual: nearly every day 9. Thoughts that you would be better off or of hurting yourself in some way: not at all Total score: 12 Depression Screening Interpretation: Positive Depression Screening Follow-up: Existing condition and In treatment Depression Screening Done: Yes Source: Developed by Drs. Adrian Soto, Candy Lynn, Urban Mccarthy and colleagues, with an educational akila from [employer]. Review of Systems Const Denies body aches, Denies chills, Denies fever(s), Denies headache(s) and Denies poor appetite Eyes Reports no additional complaints ENT Denies dysphagia, Denies dizziness, Denies headache(s) and Denies odynophagia Card Denies chest pain, Denies syncope, Denies edema, Denies irregular heart rhythm, Denies lightheadedness and Denies dyspnea Resp Denies cough and Denies dyspnea GI Denies abdominal pain, Denies constipation, Denies dysphagia, Denies diarrhea, Denies nausea, Denies odynophagia and Denies vomiting Reports no additional complaints Musc Reports no additional complaints and Denies abnormal gait Skin/Breast Reports system reviewed and no additional complaints, except as documented Neuro Denies abnormal gait, Denies dizziness, Denies syncope and Denies headache(s) Psych Reports no additional complaints Physical Exam Vital Signs: Last Vital Signs Pulse 63 08/03/25 11:24 BP 120/70 08/03/25 11:24 Pulse Ox 97 08/03/25 11:24 BMI result Body Mass Index 51.8 Const General: cooperative, healthy appearing, comfortable and no acute distress Orientation/consciousness: patient oriented x3 HEENT Head: Yes normocephalic Ears: hearing grossly normal bilaterally General nose exam: Normal external nose present Eyes General: appearance normal, both eyes and all related structures Conjunctivae: conjunctivae normal Neck Neck: Yes full ROM and Yes no lymphadenopathy Resp Effort & Inspection: normal respiratory effort Auscultation: clear to auscultation bilaterally, no crackles, no rales, no rhonchi and no wheezes Cardio Rate: regular rate Rhythm: regular rhythm Skin General skin exam: no rashes or lesions noted Neuro General: patient oriented x3 Gait exam (Neuro): Normal gait present Extrem Other: Tenderness to palpation over entirety of right shoulder and bicep without bruising. Range of motion limited due to pain primarily with extension General: Yes normal to inspection, Yes full ROM and No edema Psych Affect: normal affect Attitude: cooperative Insight: Good insight present (Psych) Judgement: Good judgement present (Psych) Immunizations Tenivac (PF) 5 Lf unit-2 Lf unit/0.5 mL intramuscular syringe Performing Provider: Marely Allan PA-C [facility] Administered by: Beverley Asher LPN on 08/03/25 12:26 Dose Route Admin Location Dispensed Lot Number Expiration Date NDC Esol Teacher Assistant 0.5 mL IM Left Deltoid 0.5 mL [id number] 03/17/27 65087-073-09 [employer] Total Dispensed Waste 0.5 mL 0 % VIS Given Date VIS Provided VIS Publication Date 08/03/25 Single Vaccine 21 Eligibility Eligibility Date Funding Source Not [facility] Eligible 08/03/25 Private Assessment & Plan Assessment & Plan (1) Encounter for annual wellness visit (AWV) in Medicare patient: Code(s): Z00.00 - Encounter for general adult medical examination without abnormal findings Plan: [place] of care was reviewed with patient patient was provided with a written screening schedule. Healthcare proxy/ MOLST forms were reviewed with patient patient advised to bring completed forms to office to be scanned to chart. Patient has a good cognitive function is able to make informed decisions about her own health. She is overdue for colonoscopy and mammogram as well as Pap smear which have all been declined today. TD was updated in the office today and referral was placed for bone density screening. Ordered for updated blood work (2) Environmental allergies: Code(s): Z91.09 - Other allergy status, other than to drugs and biological substances Plan: Referral was placed to labor economist today at patient request (3) Anxiety: Code(s): F41.9 - Anxiety disorder, unspecified Plan: Patient feels her anxiety and depression are well managed at this time with trazodone. (4) Depression: Code(s): F32.A - Depression, unspecified Plan: See above (5) Hypertension: Code(s): I10 - Essential (primary) hypertension Plan: Continue on current blood pressure medication. Avoid salt intake and encourage healthy diet and regular exercise. Blood pressure normalized when retaken (6) Morbid (severe) obesity due to excess calories: Comment: HAD A LONG DISCUSSION WITH HER. STRESSED THAT SHE HAS TO LOSE WEIGHT, AT LEAST 10-15 LB TO START WITH. LOW CARB DIET EXPLAINED. SHE IS WELL MOTIVATED TO DO THAT. Code(s): E66.01 - Morbid (severe) obesity due to excess calories Plan: Healthy diet and regular exercise is encouraged. (7) Colonoscopy refused: Code(s): Z53.20 - Procedure and treatment not carried out because of patient's decision for unspecified reasons Plan: Declining colonoscopy today and understands the risks of not having this perf ormed. 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 (9) MARIE (obstructive sleep apnea): Comment: SHE DOES HAVE MARIE BUT VERY MILD AND AT BORDERLINE. AT THIS POINT THE BEST OPTION IS TO LOSE SOME WEIGHT. NOTED ABOVE SHE WOULD LIKE TO TRY TO LOSE WEIGHT. Code(s): G47.33 - Obstructive sleep apnea (adult) (pediatric) Plan: For obstructive sleep apnea she will continue to follow with pulmonology. Healthy diet and regular exercise is encouraged. (10) Migraine: Code(s): G43.909 - Migraine, unspecified, not intractable, without status migrainosus Plan: Migraines has been relieved with sumatriptan as needed (11) Pelvic pressure in female: Code(s): R10.2 - Pelvic and perineal pain Plan: Patient complaining of pelvic pressure worsening with standing. She states she will stand and feel a sudden pressure in her pelvis and we will occasionally cause urinary incontinence. This has been ongoing for the last 5-6 months and has been worsening during that time. Pelvic and transvaginal ultrasound scheduled for later this week and has a appointment with Urology in September. (12) Recurrent falls: Code(s): R29.6 - Repeated falls Plan: Patient having recurrent falls related to this steps leading into her house and note was written to the housing community today. (13) Right shoulder pain: Code(s): M25.511 - Pain in right shoulder Plan: The patient experienced two falls in the past six months, with the most recent fall resulting in bruising and soreness on the right side. A letter will be provided to request a ramp installation to prevent further falls. An x-ray of the right shoulder will be conducted to rule out fractures due to persistent pain. (14) Mammogram declined: Code(s): Z53.20 - Procedure and treatment not carried out because of patient's decision for unspecified reasons Plan: Declining mammogram today and understands the risks of not having this performed. Plan This note was constructed using voice recognition software. While every effort has been made to ensure accuracy and picture engraver, still areas may have been included sometimes these areas may affect the content or meeting of the given symptoms. Total time spent caring for the patient today was 30 minutes. This includes time spent before the visit reviewing the chart, time spent during the visit, and time spent after the visit and documentation. Patient was informed and verbally consented to the use of an ambient scribe for clinic note documentation during this visit. Orders: Orders Comprehensive Met. Panel Today R32 - Unspecified urinary incontinence, Z00.00 - Encounter for general adult medical examination without abnormal findings Complete Blood Count Auto Diff Today R32 - Unspecified urinary incontinence, Z00.00 - Encounter for general adult medical examination without abnormal findings TSH reflex Free T4 Today Z13.29 - Encounter for screening for other suspected endocrine disorder Td Immunization Today Z23 - Encounter for immunization Hemoglobin A1c Today Z13.1 - Encounter for screening for diabetes mellitus Vitamin B12 and Folate Today Z13.21 - Encounter for screening for nutritional disorder Vitamin D 25-OH Total Today Z13.21 - Encounter for screening for nutritional disorder Lipid Panel Today Z13.220 - Encounter for screening for lipoid disorders XR DEXA axial skeleton Today Z78.0 - Asymptomatic menopausal state XR shoulder RT min 2V Today M25.511 - Pain in right shoulder Referrals Allergy & Immunology Referral Z91.018 - Allergy to other foods Medications: New baclofen 10 mg PO BID 30 tabs 0RF Refilled sumatriptan succinate take 1 tab at onset of headache; if no relief may repeat 1 tab after at least 2 hrs; max = 4 tabs/24 hr PO 30 tabs 0RF Discontinued cyclobenzaprine Discontinued Reason: Patient no longer taking 10 mg PO TID 90 tabs 8RF prednisone Discontinued Reason: Patient no longer taking 40 mg (2 x 20 mg) PO DAILY 5 days 10 tabs 0RF Quality Reporting (2019) Depression/Bipolar (159/160/161/177) PHQ-9: Total score: 12 Coding Level of Care Code Medicare Subsequent (G0439) Diagnoses Encounter for annual wellness visit (AWV) in Medicare patient Z00.00 Environmental allergies Z91.09 Anxiety F41.9 Depression F32.A Hypertension I10 Morbid (severe) obesity due to excess calories E66.01 Colonoscopy refused Z53.20 Moderate persistent asthma without complication J45.40 Asthma complication type: uncomplicated Asthma persistence: persistent Asthma severity: moderate MARIE (obstructive sleep apnea) G47.33 Migraine G43.909 Pelvic pressure in female R10.2 Recurrent falls R29.6 Right shoulder pain M25.511 Mammogram declined Z53.20 CPT Codes Advance Care Planning - Time spent: 1-15 minutes, not on file ([id number]) Advance Care Planning Advance Care Planning discussion: Completed/Scanned Date of discussion: 08/03/25 Who was present: Patient, myself Forms completed: Health Care Proxy and MOLST Time spent: 1-15 minutes, not on file Actual minutes spent: 5
[2025-08-03 11:35] VITALS: BMI 51.8
--- OUTSIDE RECORDS SUMMARY | 2025-08-03 15:25 | XMS_ITS | Clinical Summary ---
Author Organization [facility] ity Address [address] [place] [address] Care Team Providers Care Developing Machine Operator Name Role Phone Unavailable Primary Care Provider [...] 2009 Zoster Vaccines (1 of 2) 2009 Depression Screening 11/18/2024 COVID-19 Vaccine (1 - 2023-2 5 season) 2025 Influenza Vaccine (#1) 2025 RSV Immunization Adult [...]
== END 2025-08-03 12:26 | disposition home or self-care (01) ==
LOC: HO.HMCH 11:20
PROVIDERS: PCP Internal Medicine
DX: Z00.00 Encounter for general adult medical examination without abnormal findings (principal); F41.9 Anxiety disorder, unspecified; E66.01 Morbid (severe) obesity due to excess calories; Z68.43 Body mass index [BMI] 50.0-59.9, adult; F32.A Depression, unspecified; I10 Essential (primary) hypertension; Z53.20 Procedure and treatment not carried out because of patient's decision for unspecified reasons; J45.40 Moderate persistent asthma, uncomplicated; G43.909 Migraine, unspecified, not intractable, without status migrainosus; R10.2 Pelvic and perineal pain; R29.6 Repeated falls; Z23 Encounter for immunization

== ENCOUNTER → 2025-08-03 11:19 | Outpatient (BNVA) | payer MEDICARE, MEDICAID, SELFPAY | PROVIDERS: PCP Internal Medicine | DX: Z00.00 Encounter for general adult medical examination without abnormal findings (principal); G47.33 Obstructive sleep apnea (adult) (pediatric); I10 Essential (primary) hypertension; F41.9 Anxiety disorder, unspecified; F32.A Depression, unspecified; E66.01 Morbid (severe) obesity due to excess calories; J45.40 Moderate persistent asthma, uncomplicated; G43.909 Migraine, unspecified, not intractable, without status migrainosus; R10.2 Pelvic and perineal pain; R29.6 Repeated falls; M25.511 Pain in right shoulder; Z23 Encounter for immunization; Z91.09 Other allergy status, other than to drugs and biological substances | CPT/HCPCS: 90471; 90714; 96127 ==

== ENCOUNTER 2025-08-04 08:37 | Outpatient (REF) | payer MEDICARE, MEDICAID, SELFPAY ==
--- NOTE | ~2025-08-04 | XR_ITS ---
EXAMINATION: XR SHOULDER, RIGHT CLINICAL INFORMATION: M25.511 - Pain in right shoulder COMPARISON: Correlated to chest x-ray dated June 30, 2025 TECHNIQUE: AP and Y-view projections of the right shoulder. FINDINGS: Sclerosis and the marginal osteophyte formation along the articular surface of the acromioclavicular joint. Subchondral cyst formation greater tuberosity right humerus. No acute cortical disruption or malalignment. No gross soft tissue calcifications. Inadequate axillary projection. XR/XR shoulder RT min 2V IMPRESSION: Degenerative changes, acromioclavicular joint and greater tuberosity right shoulder. Electronically signed by: Patrick Brooks MD 08/04/2025 09:07 AM EDT
[2025-08-04 08:51] LABS: MANUAL DIFF FLAG NO
[2025-08-04 09:12] LABS: Hematocrit 40.2 % (37.0-47.0); Hemoglobin 13.5 g/dl (12.0-16.0); Imm Gran Abs Auto 0.01 X10*3/uL (0.00-0.03); Imm Gran Pct Auto 0.1 % (0.0-0.4); Lymphocytes Absolute Auto 3.2 X10*3/uL (1.2-4.9); Mean Corpuscular HGB Conc 33.6 g/dl (31.0-35.0); Mean Corpuscular Hemoglobin 30.1 pg (27.0-33.0); Mean Corpuscular Volume 89.5 fL (80.0-98.0); NRBC Abs Auto 0.000 X10*3/uL (0.0-0.012); NRBC Pct Auto 0.0 /100WBC (0.0-0.2); Platelet Count 304 X10*3/uL (160-400); Red Blood Count 4.49 X10*6/uL (4.20-5.50); White Blood Count 8.6 X10*3/uL (4.8-10.8)
[2025-08-04 09:21] LABS: Hemoglobin A1C 129.3797 umol/L; Total Hemoglobin (HGBA1C) 3535.8560 umol/L
[2025-08-04 09:46] LABS: Alanine Aminotransferase 20 U/L (0-31); Albumin Level 4.1 g/dL (3.5-5.0); Alkaline Phosphatase 65 U/L (39-117); Anion Gap 8 (12-20); Aspartate Amino Transferase 24 U/L (5-31); Blood Urea Nitrogen 20 mg/dL (9-16); Calcium 9.4 mg/dL (8.4-10.2); Carbon Dioxide 32 mmol/L (22-29); Chloride 103 mmol/L (96-108); Cholesterol 204 mg/dL (<200); Estimated Glomerular Filt Rate > 60; HDL Cholesterol 69 mg/dL (>40); Potassium 4.2 mmol/L (3.3-5.1); Sodium 139 mmol/L (135-145); Total Protein 7.3 g/dL (6.5-8.0); Triglycerides 80 mg/dL (<150)
--- OUTSIDE RECORDS SUMMARY | 2025-08-04 10:01 | XMS_ITS | Clinical Summary ---
Author Organization [facility] ity Address [address] [place] [address] Care Team Providers Care Handstitching Machine Collar Feller Name Role Phone Unavailable Primary Care Provider [...]
[2025-08-04 10:13] LABS: Folate 10.7 ng/mL (> or = 4.0); Vitamin B12 280 pg/mL (200-900)
== END 2025-08-04 08:38 | disposition home or self-care (01) ==
LOC: HO.LAB 08:37
DX: Z00.00 Encounter for general adult medical examination without abnormal findings (principal); M25.511 Pain in right shoulder; Z13.21 Encounter for screening for nutritional disorder; Z13.29 Encounter for screening for other suspected endocrine disorder; Z13.220 Encounter for screening for lipoid disorders; Z13.1 Encounter for screening for diabetes mellitus; R32 Unspecified urinary incontinence; Z13.6 Encounter for screening for cardiovascular disorders
CPT/HCPCS: 36415; 73030; 80053; 80061; 82306; 82607; 82746; 83036; 84443; 85025

== ENCOUNTER → 2025-08-04 08:51 | Outpatient (BNV) | payer MEDICARE, MEDICAID, SELFPAY | PROVIDERS: Visit Provider Radiology Diagnostic Radiology | DX: M19.011 Primary osteoarthritis, right shoulder (principal) | CPT/HCPCS: 73030 ==

== ENCOUNTER 2025-08-06 14:23 | Outpatient (REF) | payer MEDICARE, MEDICAID, SELFPAY ==
--- NOTE | ~2025-08-06 | US_ITS ---
EXAMINATION: US PELVIS CLINICAL INFORMATION: Pelvic and perineal pain COMPARISON: None available. TECHNIQUE: Ultrasound of the pelvis is performed using both transabdominal transducer along with Doppler. Transvaginal imaging was declined by the patient. FINDINGS: Uterus: The uterus is anteverted and measures 6.5 x 3.7 x 4.1 cm. The double wall endometrial thickness is 2 mm. The uterus is smooth in contour and has normal myometrial echogenicity. No visible fibroid. Adnexa: Ovaries were not visualized transabdominally. Patient declined a transvaginal exam. US/US pelvic complete IMPRESSION: Unremarkable uterus. Ovaries were not visualized transabdominally. Patient declined a transvaginal exam. Electronically signed by: Alden Regan MD 08/06/2025 04:14 PM EDT
--- OUTSIDE RECORDS SUMMARY | 2025-08-06 14:27 | XMS_ITS | Clinical Summary ---
Author Organization [facility] ity Address [address] [place] [address] Care Team Providers Care Lieutenant General Name Role Phone Unavailable Primary Care Provider [...]
== END 2025-08-06 14:24 | disposition home or self-care (01) ==
LOC: HO.US 14:23
PROVIDERS: PCP Internal Medicine
DX: R10.2 Pelvic and perineal pain (principal)
CPT/HCPCS: 76856

== ENCOUNTER 2025-09-08 08:49 | Outpatient (REF) | payer MEDICARE, MEDICAID, SELFPAY ==
--- NOTE | ~2025-09-08 | US_ITS ---
EXAMINATION: US TRIPLEX LOWER EXTREMITY, BILATERAL CLINICAL INFORMATION: Bilateral ankle swelling. COMPARISON: None available. TECHNIQUE: Color-flow triplex imaging with spectral analysis and compression Doppler were performed on the bilateral lower extremities. FINDINGS: Respiratory variation, normal compression and augmented flow are noted throughout the bilateral lower extremities. The visualized common femoral vein, superficial femoral vein, profunda femoral vein, popliteal vein and midcalf peroneal and posterior tibial venous segments show no evidence of deep venous thrombosis bilaterally. There is no Palomino's cyst. There is a reactive appearing right groin lymph node. US/US venous duplex LE BI IMPRESSION: No evidence of deep venous thrombosis involving the bilateral lower extremities. Electronically signed by: Bill Pimentel MD 09/08/2025 09:57 AM EDT
--- OUTSIDE RECORDS SUMMARY | 2025-09-08 09:26 | XMS_ITS | Clinical Summary ---
Author Organization [facility] ity Address [address] [place] [address] Care Team Providers Care Dishtank Operator Name Role Phone Unavailable Primary Care [...] DTaP,Tdap,and Td Vaccines (1 - Tdap) 1978 Pneumococcal Vaccine: 50+ Ye ars (1 of [...]
== END 2025-09-08 08:50 | disposition home or self-care (01) ==
LOC: HO.US 08:49
PROVIDERS: Visit Provider Internal Medicine
DX: M25.471 Effusion, right ankle (principal); M25.472 Effusion, left ankle; M79.89 Other specified soft tissue disorders
CPT/HCPCS: 93970

== ENCOUNTER → 2025-09-08 08:51 | Outpatient (BNV) | payer MEDICARE, MEDICAID, SELFPAY | PROVIDERS: Visit Provider Radiology Diagnostic Radiology | DX: R22.43 Localized swelling, mass and lump, lower limb, bilateral (principal) | CPT/HCPCS: 93970 ==

== ENCOUNTER 2025-09-24 11:13 | Outpatient (REF) | payer MEDICARE, MEDICAID, SELFPAY ==
--- NOTE | ~2025-09-24 | XR_ITS ---
EXAMINATION: XR CHEST CLINICAL INFORMATION: R06.00 - Dyspnea, unspecified COMPARISON: June 30, 2025 TECHNIQUE: 2 views of the chest were obtained. FINDINGS: No significant abnormality is noted involving the heart, lungs, mediastinum, bony thorax or soft tissues. XR/XR chest 2V IMPRESSION: No acute disease. Stable chest x-ray Electronically signed by: Alden Regan MD 09/24/2025 11:56 AM [facility]
--- OUTSIDE RECORDS SUMMARY | 2025-09-24 14:10 | XMS_ITS | Clinical Summary ---
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
== END 2025-09-24 11:14 | disposition home or self-care (01) ==
LOC: HO.HMGCX 11:13
PROVIDERS: Visit Provider Physician Assistant
DX: R06.02 Shortness of breath (principal)
CPT/HCPCS: 71046; 94640; 99212

== ENCOUNTER 2025-09-24 11:13 | Outpatient (AMB) | payer MEDICARE, MEDICAID, SELFPAY ==
[2025-09-24 11:16] VITALS: BP 152/80; PULSE 73; TEMP 36.4; O2SAT 93; BMI 51.6
--- NOTE | 2025-09-24 11:16 | AM.OFFWIN_ITS ---
Intake Vital Signs 09/24/25 11:16 Height 5 ft 6 in Weight 320 lb BMI 51.6 BP 152/80 H Blood Pressure Location Lt brachial Position Sitting Pulse 73 Pulse Source Pulse Oximeter Temp 97.5 F Temp Source Oral Pulse Oximetry (%) 93 Oxygen Delivery Method Room Air Intake Visit Reasons: EP Trouble breathing, mucus, chest pain/ back pain Intake Note: Pt ambulated (I) gait steady with cane. Pt weight 320lbs. Pt c/o difficulty breathing x 4-5 days with productive cough (greenish). Pt speaks in full sentences. O2 sat 90% on room air. Pt stated that she used her inhaler this am with very little relief. Pt stated Covid + x 1 month ago. Lungs - coarse exp and audible wheezing all lobes. Heart sounds - regular. CHIQUITA (Holly) and Cecille (GERRI) aware. Pt roomed to 11. Patient Tobacco Use Status: Never used Tobacco Allergies cyclobenzaprine Allergy (Severe, Verified 09/24/25 11:27) hives, throat closing codeine Allergy (Intermediate, Verified 09/24/25 11:25) Dizziness shellfish derived Allergy (Intermediate, Verified 09/24/25 11:25) Hives cephalexin (Keflex) Adverse Reaction (Mild, Verified 09/24/25 11:25) stomach upset amoxicillin Adverse Reaction (Unknown, Verified 09/24/25 11:25) Nausea Do you need a note to return to daycare/school/sports/work: No HPI HPI Comments History of Present Illness Details This is a 65-year-old female with a past medical history of asthma, arthritis and obesity who had COVID-19 in August 2025 presenting for evaluation of a continued cough with discolored phlegm, shortness of breath and fatigue. Patient states that she has not had a fever since last month and has been taking a muscle relaxer and Tylenol only for relief of her symptoms. Patient has a single inhaler that she uses for treatment of her asthma but does not have a rescue inhaler or nebulizer at home. [facility] Medical History COVID MARIE (obstructive sleep apnea) Morbid (severe) obesity due to excess calories Morbid obesity Back pain Anxiety and depression Osteoarthritis Obstructive sleep apnea Lumbar degenerative disc disease Asthma Obesity Surgical History History of section Family History Mother Mental health disorder Father Mental health disorder Other Substance use disorder Social History Housing: Apartment Alcohol intake: never Patient Tobacco Use Status: Never used Tobacco Tobacco use type: Cigarette e-Cigarette/Vaping Use: Never Used Second Hand Smoke Exposure: No service: No Current occupational status: disabled Current occupation: rt handed Cognitive needs: No Hearing needs: No Vision needs: Yes Review of Systems Const All systems reviewed & are unremarkable except as noted in HPI and below Denies chills, Reports fatigue and Denies fever(s) Eyes Reports no additional complaints ENT Reports no additional complaints, Denies otalgia, Denies sinus pressure and Denies sore throat Card Reports no additional complaints and Reports dyspnea Resp Reports change in phlegm color, Reports cough, Denies hemoptysis, Reports dyspnea and Denies wheezing GI Reports no additional complaints Reports no additional complaints Musc Reports no additional complaints Skin/Breast Reports system reviewed and no additional complaints, except as documented Neuro Reports no additional complaints Psych Reports no additional complaints Endo Reports no additional complaints and Reports fatigue Edgard/Lymph Reports no additional complaints Aller/Immun Reports no additional complaints and Denies wheezing Physical Exam Vital Signs: Last Vital Signs Temp 97.5 F 09/24/25 11:16 Pulse 73 09/24/25 11:16 BP 152/80 H 09/24/25 11:16 Pulse Ox 93 09/24/25 11:16 Oxygen Delivery Method Room Air 09/24/25 11:16 BMI result Body Mass Index 51.6 Const General: cooperative, healthy appearing, comfortable, no acute distress, well developed, alert and awake; No lethargic Nutritional Appearance: average body habitus Orientation/consciousness: patient oriented x3 and No lethargic Limitations: no limitations Resp Effort & Inspection: normal respiratory effort, able to speak in complete sentences, no audible wheezes, no cough, no nasal flaring, no respiratory distress and not tachypneic Auscultation: wheezes expiratory wheezes, inspiratory wheezes and throughout Cardio Rate: regular rate Rhythm: regular rhythm Skin General skin exam: no rashes or lesions noted Neuro General: patient oriented x3 Psych Appearance: grossly normal Mental Status: mental status grossly normal Insight: Good insight present (Psych) Judgement: Good judgement present (Psych) Office Procedures Nebulizer Treatment Nebulizer Treatment [id number]/MDI RX initial, or Nebulizer Subsequent Treatment Office Meds ipratropium 0.5 mg-albuterol 3 mg (2.5 mg base)/3 mL nebulization soln Performing Provider: Holly Paz PA-C Performing Location: [facility] Administered by: Janeen Hughes RN on 09/24/25 12:03 Dose Route Admin Location Dispensed Lot Number Expiration Date [facility] Track Inspecting Supervisor 3 mL inhalation 3 mL 25H06/17/27 [id number] [employer] Results Reviewed Results Reviewed: No acute findings noted on chest x-ray. Assessment & Plan Assessment & Plan (1) Dyspnea: Comment: Patient received a DuoNeb treatment here in the office and her oxygen improved to 95% on room air. There are no acute findings noted on chest x-ray. Patient's lungs still remained wheezy and she will be discharged home with a tapering course of prednisone as well as a rescue inhaler. Code(s): R06.00 - Dyspnea, unspecified Qualifiers: Dyspnea type: shortness of breath Qualified Code(s): R06.02 - Shortness of breath Plan: Prednisone taper as prescribed, albuterol inhaler only as needed. Patient will follow up with her inspector hairspring truing as an outpatient. Orders: Orders XR chest 2V Today R06.00 - Dyspnea, unspecified AMB Nebulizer Treatment Today R06.00 - Dyspnea, unspecified Coding Level of Care Code Est Pt Level 4 (86891) Diagnoses Shortness of breath R06.02 Dyspnea type: shortness of breath CPT Codes Nebulizer Treatment - Nebulizer Treatment, initial or subsequent: 09820- Nebulizer/MDI RX initial, or Nebulizer Subsequent Treatment ([id number]) Time Spent (min) 30
== END 2025-09-24 12:22 | disposition home or self-care (01) ==
PROVIDERS: Visit Provider Physician Assistant
DX: R06.00 Dyspnea, unspecified (principal); R06.02 Shortness of breath

== ENCOUNTER → 2025-09-24 11:46 | Outpatient (BNV) | payer MEDICARE, MEDICAID, SELFPAY | PROVIDERS: Visit Provider Radiology Diagnostic Radiology | DX: R06.00 Dyspnea, unspecified (principal) | CPT/HCPCS: 71046 ==

== ENCOUNTER 2025-10-04 13:12 | Outpatient (AMB) | payer MEDICARE, MEDICAID, SELFPAY ==
--- NOTE | 2025-10-04 13:32 | A.OFFVIS_ITS ---
Intake Visit Reasons: Newprob-Primary osteoarthritis, right should Intake Note: Sveta is a 65 year old female who presents today as an established patient, new problem visit to for her primary osteoarthritis, right shoulder. Patient was referred by her PCP 08/09/25. At today's visit she reports- bicep area fall on right side about 3 weeks ago. x-rays. unable to lift arm. No other treatment. constant pain. No relief with Tylenol every 4 hours. Allergies cyclobenzaprine Allergy (Severe, Verified 09/24/25 11:27) hives, throat closing codeine Allergy (Intermediate, Verified 09/24/25 11:25) Dizziness shellfish derived Allergy (Intermediate, Verified 09/24/25 11:25) Hives cephalexin (Keflex) Adverse Reaction (Mild, Verified 09/24/25 11:25) stomach upset amoxicillin Adverse Reaction (Unknown, Verified 09/24/25 11:25) Nausea HPI HPI Newprob-Primary osteoarthritis, right should: Details: 65-year-old female presents to the office today for an injury she sustained to her right shoulder on 08/09/2025. She states since the injury she has had difficulty with reaching and lifting the right arm and has constant pain. This has limited her ability to perform daily activities. She has no treatment to date. [facility] Medical History COVID MARIE (obstructive sleep apnea) Morbid (severe) obesity due to excess calories Morbid obesity Back pain Anxiety and depression Osteoarthritis Obstructive sleep apnea Lumbar degenerative disc disease Asthma Obesity Surgical History History of section Family History Mother Mental health disorder Father Mental health disorder Other Substance use disorder Social History Housing: Apartment Alcohol intake: never Patient Tobacco Use Status: Never used Tobacco Tobacco use type: Cigarette e-Cigarette/Vaping Use: Never Used Second Hand Smoke Exposure: No service: No Current occupational status: disabled Current occupation: rt handed Cognitive needs: No Hearing needs: No Vision needs: Yes Review of Systems Const All systems reviewed & are unremarkable except as noted in HPI and below Physical Exam Const General: cooperative and no acute distress Orientation/consciousness: patient oriented x3 Resp Effort & Inspection: normal respiratory effort and able to speak in complete sentences Cardio Peripheral pulses: Peripheral pulses 2+ throughout Neuro General: patient oriented x3 Extrem Other: Right shoulder normal to inspection with diffuse tenderness over the proximal biceps tendon. She has limited forward flexion and external rotation. Significant pain and weakness with empty can. Neurovascularly intact. Results Reviewed Results Reviewed: X-rays of the right shoulder obtained on 08/04/2025 are negative for any acute or chronic abnormalities. Assessment & Plan Assessment & Plan (1) Injury of right rotator cuff: Code(s): S46.001A - Unspecified injury of muscle(s) and tendon(s) of the rotator cuff of right shoulder, initial encounter Category: Medical Plan: MRI Of the right shoulder has been ordered to further evaluate the integrity of the rotator cuff given her deficits on exam in difficulties with ongoing activity. I also placed an order for physical therapy to work on range of motion periscapular rotator cuff stabilization techniques. Once the scan is complete I will contact her to discuss the next step in her treatment. I also sent a prescription for Celebrex to the pharmacy to take twice a day for 2 weeks. The patient is content with this plan. Orders: Orders MR shoulder RT wo con Today M77.8 - Other enthesopathies, not elsewhere classified PT Evaluation and Treatment Today S46.001A - Unspecified injury of muscle(s) and tendon(s) of the rotator cuff of right shoulder, initial encounter Medications: New celecoxib (Celebrex) 200 mg PO BID 60 caps 3RF 30 days Coding Level of Care Code New Pt Level 3 (66837) Complex EM visit Add On G2211 Diagnoses Injury of right rotator cuff S46.001A
== END 2025-10-04 14:25 | disposition home or self-care (01) ==
LOC: HO.HOS 13:13
PROVIDERS: PCP Internal Medicine; Visit Provider Physician Assistant
DX: S46.001A Unspecified injury of muscle(s) and tendon(s) of the rotator cuff of right shoulder, initial encounter (principal)
CPT/HCPCS: 99214; G2211

== ENCOUNTER → 2025-10-04 13:12 | Outpatient (BNVA) | payer MEDICARE, MEDICAID, SELFPAY | PROVIDERS: PCP Internal Medicine; Visit Provider Physician Assistant | DX: S46.001A Unspecified injury of muscle(s) and tendon(s) of the rotator cuff of right shoulder, initial encounter (principal) | CPT/HCPCS: 99212 ==

== ENCOUNTER 2025-10-21 09:00 | Outpatient (REF) | payer MEDICARE, MEDICAID, SELFPAY ==
--- NOTE | ~2025-10-21 | MM_ITS ---
EXAMINATION: DXA BONE DENSITY AXIAL HISTORY: Z78.0 - Asymptomatic menopausal state TECHNIQUE: Cyota Dual energy absorptiometry (DEXA) of the lumbar spine, total left hip, and femoral neck was performed. COMPARISON: There are no prior studies for comparison. FINDINGS: The bone mineral density of the lumbar spine is 1.321 g/cm2, corresponding to a T-score of 1.2, and a Z-score of 1.6. This is indicative of normal bone mineral density. The bone mineral density of the left total hip is 1.003 g/cm2, corresponding to a T-score of 0.0, and a Z-score of 0.4. This is indicative of normal bone mineral density. The bone mineral density of the left femoral neck is 0.796 g/cm2, corresponding to a T-score of -1.7, and a Z-score of -1.0. This is indicative of osteopenia. FRACTURE RISK: The FRAX index suggests a risk of major osteoporotic fracture of 8.4%, and of hip fracture 1.0%. MM/XR DEXA axial skeleton IMPRESSION: Based on bone mineral density, and according to World Health Organization (WHO) criteria, the diagnosis is consistent with osteopenia. Statistically, 68% of repeat scans fall within 1 SD (+/- 0.010 g/cm2 for AP spine L1-L4) and 1 SD (+/- 0.012 g/cm2 for femur total) FRAX is a trademark of the [employer] Met[employer] Bone Disease, a World Health Organization (WHO) Collaborating Center. Electronically signed by: Adrian Armstrong MD 10/21/2025 09:42 AM [facility]
--- OUTSIDE RECORDS SUMMARY | 2025-10-21 09:46 | XMS_ITS | Clinical Summary ---
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
== END 2025-10-21 09:01 | disposition home or self-care (01) ==
LOC: HO.MAMMO 09:00
DX: Z78.0 Asymptomatic menopausal state (principal)
CPT/HCPCS: 77080

== ENCOUNTER → 2025-10-21 09:15 | Outpatient (BNV) | payer MEDICARE, MEDICAID, SELFPAY | PROVIDERS: Visit Provider Radiology Diagnostic Radiology | DX: E28.39 Other primary ovarian failure (principal) | CPT/HCPCS: 77080 ==

== ENCOUNTER 2025-10-30 10:49 | Emergency (ER) | payer MEDICARE, MEDICAID, SELFPAY ==
--- NOTE | ~2025-10-30 | XR_ITS ---
CLINICAL HISTORY: fell pain knee cap 4 views right knee Comparison: None Findings: No fractures or dislocations. No joint effusion. There is moderate to advanced tricompartmental spurring along with some medial compartment joint space narrowing. No radiopaque foreign body. Impression: 1. No fracture or dislocation. This document has been electronically signed by: Wayne Iraheta MD on 10/30/2025 16:11:23
--- NOTE | ~2025-10-30 | XR_ITS ---
CLINICAL HISTORY: fell pain, lrom AP and lateral views right elbow Comparison: None Findings: No fractures, subluxations or dislocations. Fat pads are nondisplaced. Spurring of the lateral humeral epicondyle. Bone mineralization and soft tissues within normal limits. No radiopaque foreign body. Impression: 1. No fractures, subluxations, dislocations or evidence of joint effusion right elbow. This document has been electronically signed by: Pancho Dickson MD on 10/30/2025 12:54:23
--- NOTE | ~2025-10-30 | XR_ITS ---
CLINICAL HISTORY: fell pain with inspiration Right rib series with PA chest Comparison: CR/SR - XR CHEST 2 VIEWS - 09/24/25 12:02 EST Findings: Normal cardiomediastinal silhouette. Lungs are well expanded and clear. No pneumothorax or pleural effusions. No rib fractures. No osteoblastic or osteolytic lesions. Impression: 1. Normal chest with right rib series. This document has been electronically signed by: Pancho Dickson MD on 10/30/2025 12:47:12
--- NOTE | ~2025-10-30 | XR_ITS ---
CLINICAL HISTORY: fell pain lrom 2 view right shoulder Comparison: CR/SR - XR SHOULDER 2 OR MORE VIEWS RIGHT - 08/04/25 08:57 EDT Findings: Normal congruency of the glenohumeral joint. Stable AC joint arthrosis with undersurface spurring. No fractures or bony erosions. Greater tuberosity cysts Normal bone mineralization and soft tissues. No radiopaque foreign body. Normal visualized right chest. Impression: 1. No fracture, subluxations or dislocations right shoulder. 2. Stable degenerative changes. This document has been electronically signed by: Pancho Dickson MD on 10/30/2025 12:51:28
[2025-10-30 11:19] VITALS: BP 146/87; PULSE 69; RESP 16; TEMP 36.1; O2SAT 95; BMI 49.9
--- NOTE | 2025-10-30 11:20 | ED.FALL ---
HPI - Fall General Chief Complaint: Fall Stated Complaint: Fall - R side pain, arm pain Time Seen by Provider: 10/30/25 12:12 Source: patient Mode of arrival: ambulatory Limitations: no limitations History of Present Illness ED Provider: Samina Ortiz APRN HPI Narrative: 65-year-old female who has a past medical history of arthritis, hypertension, asthma presents to the ER with complaints of right shoulder pain, right hip pain, right knee pain and right rib pain after a fall which occurred just prior to arrival. Patient reports she was getting into her car in the passenger front seat when she lost her balance falling hitting the right side of her body on the ground. There was no head strike or loss of consciousness. She is not in any AC therapy. She was able to get up after the fall. Patient reports pain in the right ribs, right shoulder, right hip and right knee. There is no reports of headache, neck pain, back pain, chest pain, abdominal pain, vomiting, vision changes, numbness / tingling/ weakness in the upper lower extremities. Related Data Home Medications ?Medication ?Instructions ?Recorded ?Confirmed acetaminophen 500 mg tablet 1,000 mg PO Q4-6H PRN 09/24/25 10/25/25 (Tylenol Extra Strength) Previous Rx's ?Medication ?Instructions ?Recorded fexofenadine 180 mg tablet 180 mg PO DAILY 90 days #90 tabs 06/25/24 budesonide 160 mcg-glycopyr 9 2 inh inhalation BID #1 ea 04/07/25 mcg-formot 4.8 mcg/actuation HFA inhaler (Breztri Aerosphere) Adult pull-ups #90 ea 06/17/25 cholecalciferol (vitamin D3) 25 25 mcg PO DAILY #90 caps 08/04/25 mcg (1,000 unit) capsule sumatriptan succinate 25 mg tablet See Rx Instructions PO .COMPLEX 08/29/25 #30 tabs trazodone 50 mg tablet 50 mg PO BEDTIME #90 tabs 09/02/25 albuterol sulfate 90 mcg/actuation 1 inh inhalation Q6H PRN shortness 09/24/25 aerosol inhaler (Ventolin HFA) of breath or wheezing #8.5 grams furosemide 20 mg tablet (Lasix) 40 mg (2 x 20 mg) PO Q OTHER DAY 10/25/25 #20 tabs naproxen 250 mg tablet 250 mg PO BID PRN pain #30 tabs 10/25/25 Allergies Allergy/AdvReac Type Severity Reaction Status Date / Time cyclobenzaprine Allergy Severe hives, Verified 10/30/25 11:23 throat closing codeine Allergy Intermediate Dizziness Verified 10/30/25 11:23 shellfish derived Allergy Intermediate Hives Verified 10/30/25 11:23 celecoxib (From Celebrex) Allergy Mild Shortness Verified 10/30/25 11:23 of Breath cephalexin (Keflex) AdvReac Mild stomach Verified 10/30/25 11:23 upset amoxicillin AdvReac Unknown Nausea Verified 10/30/25 11:23 Review of Systems Review of Systems: Yes all other systems are reviewed and are negative Constitutional: Constitutional: Reports no additional constitutional complaints, Denies body ache(s), Denies chills, Denies fever(s), Denies headache(s) and Denies weakness Eyes: Eyes: Reports no additional eye complaints and Denies change in vision ENT: Reports system reviewed and no additional complaints, except as documented, Denies dizziness, Denies headache(s), Denies nasal congestion, Denies nasal discharge and Denies neck pain Cardiovascular: Cardiovascular: Reports no additional cardiovascular complaints, Denies chest pain, Denies leg edema and Denies dyspnea Respiratory: Respiratory: Reports no additional respiratory complaints, Denies cough and Denies dyspnea Gastrointestinal: Gastrointestinal: Reports no additional gastrointestinal complaints, Denies abdominal pain, Denies diarrhea, Denies nausea and Denies vomiting Genitourinary: Genitourinary: Reports no additional female genitourinary complaints and Denies urinary incontinence Musculoskeletal: Musculoskeletal: Reports no additional musculoskeletal complaints, Denies back pain, Reports arthralgias, Denies joint swelling, Denies neck pain, Denies numbness and Denies tingling Integumentary/Breasts: Skin/Breast: Reports system reviewed and no additional complaints, except as docu and Denies rash Neurologic: Reports system reviewed and no additional complaints, except as documented, Denies Abnormal speech present, Denies dizziness, Denies headache(s), Denies numbness, Denies tingling and Denies weakness PMFSH Past Medical History Attestation statement: The following information was validated with the patient. Source: old records reviewed and nursing notes reviewed Medical History COVID MARIE (obstructive sleep apnea) Morbid (severe) obesity due to excess calories Morbid obesity Back pain Anxiety and depression Osteoarthritis Obstructive sleep apnea Lumbar degenerative disc disease Asthma Obesity Surgical History History of section Family History Family History Mother Mental health disorder Father Mental health disorder Other Substance use disorder Social History Social History Housing: Apartment Alcohol intake: never Patient Tobacco Use Status: Never used Tobacco Tobacco use type: Cigarette Smoked in Last 30 Days: No e-Cigarette/Vaping Use: Never Used Second Hand Smoke Exposure: No Use of substances other than those prescribed or required for medical reasons: No Advance Directives: No Advance Directives Information Provided: No Do you have a plan to hurt others: No Plan service: No Current occupational status: disabled Current occupation: rt handed Cognitive needs: No Hearing needs: No Vision needs: Yes Physical Exam Vital Signs: Vital Signs: Last Vital Signs Temp 97.0 F 10/30/25 11:19 Pulse 66 10/30/25 14:31 Resp 20 10/30/25 14:31 BP 136/65 10/30/25 14:31 Pulse Ox 96 10/30/25 14:31 O2 Del Method Room Air 10/30/25 14:31 BMI result Body Mass Index 49.9 Const: General: cooperative, healthy appearing, comfortable and no acute distress Orientation/consciousness: patient oriented x3 Limitations: no limitations HEENT: Head: Yes normal to inspection, No Connor's sign and No raccoon eyes Ears: hearing grossly normal bilaterally and TM's normal bilaterally General nose exam: Normal external nose present Face and sinus: Yes normal facial exam Mouth: Normal oral and palatal mucosa present Throat: Yes posterior oropharynx normal Eyes: General: appearance normal, both eyes and all related structures Pupils: Equal, round and reactive pupils present Neck: Other: No cervical midline tenderness, step-offs or deformity Neck: Yes normal visual inspection, Yes full ROM, Yes no lymphadenopathy and Yes no meningeal signs Chest: Chest palpation & inspection: normal inspection of the chest Chest/axillae images:  1. There is some tenderness the right mid ribs with no crepitus, deformity or ecchymosis noted Resp: Effort & Inspection: normal respiratory effort Auscultation: clear to auscultation bilaterally Cardio: Rate: regular rate Rhythm: regular rhythm Peripheral pulses: Peripheral pulses 2+ throughout GI: Inspection: Yes normal to inspection Palpation (GI): Soft to palpation and nontender Auscultation: normal bowel sounds : General: Yes no CVA tenderness Back/Spine/Pelvis: Back: no CVA tenderness Thoracic/Lumbar Spine: thoracic and lumbar spine normal to inspection Skin: General skin exam: no rashes or lesions noted Neuro: General: patient oriented x3, moves all extremities, no meningeal signs, no focal motor deficits and normal sensation to monofilament Cranial nerves: Yes CN's II-XII intact bilaterally, Yes Equal, round and reactive pupils present, Yes Bilaterally intact EOM present, Yes Nystagmus not present, Yes Normal facial strength present and Yes Midline tongue present Cognition (Neuro): normal cognition Speech: No Abnormal speech present Gait exam (Neuro): Normal gait present Motor exam (neuro): 5/5 motor strength present throughout Sensory Exam: Normal double simultaneous stimulation for sensation Extrem: Other: there is tenderness the right anterior knee with no swelling or deformity noted. There is full active and passive range of motion of the knee. CMS is intact distally There is tenderness to the right lateral hip. There is full active and passive range of motion of the hip. CMS is intact distally. There is tenderness the right proximal humerus with full active and passive range of motion. CMS is intact distally. General: Yes normal to inspection Course Course Course Narrative: This is a RME preformed in triage by Alma Rosa Christensen PA-C. Date:10/30/2025, time 11:20 am. Patient presents with injuries sustained from weight shifting while attempting to get into her car this morning. Hx of vertigo woke up this morning with it. Sveta Charles is evaluated today after an unwitnessed fall that occurred approximately 30 minutes prior to arrival. This morning, while walking around her car to get in, she experienced dizziness and subsequently lost her balance, falling onto her right side. She denies striking her head. She reports that dizziness began upon arising today and persisted through the morning but is not typical for her; she has not had an episode ?in a long time.? She describes a sensation of imbalance rather than room-spinning vertigo or presyncope. She denies chest pain and denies a current headache. She reports pain localized to the right side?rib cage, shoulder, arm, hip, leg, and knee. She denies calf pain and ankle pain. No treatment has been administered yet. She typically ambulates with a cane but was not using it at the time of the fall. No blood thinners. No recent illness. Review of Systems: Constitutional: Denies recent illness; no mention of fever. Neurologic: Positive for dizziness this morning; denies loss of consciousness. Cardiovascular: Denies chest pain. Head: Denies head injury. Eyes/ENT: No specific complaints reported. Respiratory: No complaints reported. Gastrointestinal: Eating and drinking normally. Musculoskeletal: Reports right-sided pain involving shoulder, rib, hip, arm, leg, and knee; denies ankle pain, calf pain. Skin: No rash or bleeding discussed. Neurologic/Psychiatric: No syncope; denies feeling like she would pass out. Work UP: XR right shoulder, ribs, right shoulder and right elbow/ knee. CBC BMP Will defer full ROS and PE to treating provider. Patient will continued to be monitored in the interim. Reevaluation(s) Reevaluation #1: x-ray show no acute finding. Likely contusion. No overt neuro deficits and denies dizziness at this time. Normal neuro exam. Will discharge home with recommendations to follow-up outpatient with supportive measures. Reviewed worrisome signs and symptoms of when to return to the emergency room. Comfortable plan for discharge home Medications Administered Discontinued Medications Generic Name Dose Route Start Last Admin Trade Name Darin PRN Reason Stop Dose Admin Acetaminophen 975 mg 10/30/25 12:35 10/30/25 13:17 Acetaminophen 325 Mg Tablet PO 10/30/25 12:36 975 mg ONCE ONE Administration Ibuprofen 600 mg 10/30/25 15:03 10/30/25 15:29 Ibuprofen 600 Mg Tablet PO 10/30/25 15:04 600 mg ONCE ONE Administration Medical Decision Making Medical Decision Making [facility] Narrative: 65-year-old female who has a past medical history of arthritis, hypertension, asthma presents to the ER with complaints of right shoulder pain, right hip pain, right knee pain and right rib pain after a fall which occurred just prior to arrival. Patient reports she was getting into her car in the passenger front seat when she lost her balance falling hitting the right side of her body on the ground. There was no head strike or loss of consciousness. She is not in any AC therapy. She was able to get up after the fall. Patient reports pain in the right ribs, right shoulder, right hip and right knee. There is no reports of headache, neck pain, back pain, chest pain, abdominal pain, vomiting, vision changes, numbness / tingling/ weakness in the upper lower extremities. normal neuro exam no focal deficits. There is no reports of head strike or head injury and patient is neurologically intact. There is some tenderness the right anterior mid ribs but there is no tenderness over the right lateral lower ribs and there is no focal abdominal pain on exam. I also do not appreciate any crepitus, ecchymosis or deformity. The lung sounds are clear throughout. The patient does have some tenderness or some various body parts but there is no obvious deformity or swelling and patient has full active and passive range of motion of these extremities. I will order x-rays. Likely contusion. Differential Diagnosis Differential Diagnoses: The differential diagnosis associated with the presentation includes Doubt intrathoracic or intra-abdominal injury Doubt intracranial injury Contusion, fracture, doubt vascular injury or dislocation or complex fracture Admission/Observation Consideration of admission/observation: Escalation of care including admission/observation considered Lab Data MDM Lab Attestation statement: I reviewed the patient's lab results. 10/30/25 11:34 10/30/25 11:34 Labs: Lab Results 10/30/25 Range/Units 11:34 WBC 6.0 (4.8-10.8) X10*3/uL RBC 4.51 (4.20-5.50) X10*6/uL Hgb 13.2 (12.0-16.0) g/dl Hct 42.0 (37.0-47.0) % MCV 93.1 (80.0-98.0) fL MCH 29.3 (27.0-33.0) pg MCHC 31.4 (31.0-35.0) g/dl RDW 13.0 (11.0-16.0) % Plt Count 284 (160-400) X10*3/uL MPV 9.9 (9.4-12.3) fL Immature Gran % (Auto) 0.2 (0.0-0.4) % Neut % (Auto) 43.4 L (45-73) % Lymph % (Auto) 36.1 (20-40) % Cavalier % (Auto) 9.7 (2-11) % Eos % (Auto) 9.8 H (0-4) % Baso % (Auto) 0.8 (0-2) % Lymph # (Auto) 2.2 (1.2-4.9) X10*3/uL Cavalier # (Auto) 0.6 (0.1-1.2) X10*3/uL Eos # (Auto) 0.6 H (0.0-0.4) X10*3/uL Baso # (Auto) 0.1 (0.0-0.2) X10*3/uL Abs Immat Gran (auto) 0.01 (0.00-0.03) X10*3/uL Absolute Neuts (auto) 2.6 (2.0-8.3) x10*3/uL Absolute Nucleated RBC 0.000 (0.0-0.012) X10*3/uL Nucleated RBC % (auto) 0.0 (0.0-0.2) /100WBC Sodium 139 (135-145) mmol/L Potassium 4.2 (3.3-5.1) mmol/L Chloride 103 (96-108) mmol/L Carbon Dioxide 29 (22-29) mmol/L Anion Gap 11 L (12-20) BUN 15 (9-16) mg/dL Creatinine 0.71 (0.5-1.4) mg/dL Estim Creat Clear Calc 120.4 Estimated GFR > 60 Random Glucose 93 (60-115) mg/dL Calcium 9.7 (8.4-10.2) mg/dL Independent Interpretation I performed an independent interpretation of an: Plain X-Ray Interpretation: I independently viewed the x-ray and agree with the radiology report Radiology Impression Discussion of test interpretation with radiology: I have reviewed the radiologist's reading. Radiologist Impression: [address] [address] XRay Report Signed Patient: Sveta Aparicio MR#: [id number] : 1960 Acct:[id number] Age/Sex: 65 / F ADM Date: 10/30/25 Loc: HO.ED Attending Dr: Ordering Physician: Alma Rosa Christensen PA-C Date of Service: 10/30/25 Procedure(s): XR elbow RT min 3V Accession Number(s): [id number] cc: Marely Allan PA-C; Alma Rosa Christensen PA-C~ Reason for Exam: fell pain, lrom CLINICAL HISTORY: fell pain, lrom AP and lateral views right elbow Comparison: None Findings: No fractures, subluxations or dislocations. Fat pads are nondisplaced. Spurring of the lateral humeral epicondyle. Bone mineralization and soft tissues within normal limits. No radiopaque foreign body. Impression: 1. No fractures, subluxations, dislocations or evidence of joint effusion right elbow. This document has been electronically signed by: Pancho Dickson MD on 10/30/2025 12:54:[address] [address] XRay Report Signed Patient: Sveta Aparicio MR#: [id number] : 1960 Acct:[id number] Age/Sex: 65 / F ADM Date: 10/30/25 Loc: HO.ED Attending Dr: Ordering Physician: Alma Rosa Christensen PA-C Date of Service: 10/30/25 Procedure(s): XR shoulder RT min 2V Accession Number(s): [id number] cc: Marely Allan PA-C; Alma Rosa Christensen PA-C~ Reason for Exam: fell pain lrom CLINICAL HISTORY: fell pain lrom 2 view right shoulder Comparison: CR/SR - XR SHOULDER 2 OR MORE VIEWS RIGHT - 08/04/25 08:57 EDT Findings: Normal congruency of the glenohumeral joint. Stable AC joint arthrosis with undersurface spurring. No fractures or bony erosions. Greater tuberosity cysts Normal bone mineralization and soft tissues. No radiopaque foreign body. Normal visualized right chest. Impression: 1. No fracture, subluxations or dislocations right shoulder. 2. Stable degenerative changes. This document has been electronically inés [address] [address] XRay Report Signed Patient: Sveta Aparicio MR#: [id number] : 1960 Acct:[id number] Age/Sex: 65 / F ADM Date: 10/30/25 Loc: .ED Attending Dr: Ordering Physician: Alma Rosa Christensen PA-C Date of Service: 10/30/25 Procedure(s): XR ribs RT min 3V w CXR1V Accession Number(s): [id number] cc: Marely Allan PA-C; Alma Rosa Christensen PA-C~ Reason for Exam: fell pain with inspiration CLINICAL HISTORY: fell pain with inspiration Right rib series with PA chest Comparison: CR/SR - XR CHEST 2 VIEWS - 09/24/25 12:02 EST Findings: Normal cardiomediastinal silhouette. Lungs are well expanded and clear. No pneumothorax or pleural effusions. No rib fractures. No osteoblastic or osteolytic lesions. Impression: 1. Normal chest with right rib series. This document has been electronically signed by: Pancho Dickson MD on 10/30/2025 12:47:[address] [address] XRay Report Signed Patient: Sveta Aparicio MR#: [id number] : 1960 Acct:[id number] Age/Sex: 65 / F ADM Date: 10/30/25 Loc: .ED Attending Dr: Ordering Physician: Alma Rosa Christensen PA-C Date of Service: 10/30/25 Procedure(s): XR knee RT 4V Accession Number(s): [id number] cc: Marely Allan PA-C; Alma Rosa Christensen PA-C~ Reason for Exam: fell pain knee cap CLINICAL HISTORY: fell pain knee cap 4 views right knee Comparison: None Findings: No fractures or dislocations. No joint effusion. There is moderate to advanced tricompartmental spurring along with some medial compartment joint space narrowing. No radiopaque foreign body. Impression: 1. No fracture or dislocation. This document has been electronically signed by: Wayne Iraheta MD on 10/30/2025 16:11:23 Discharge Plan Discharge Clinical Impression: Contusion of rib on right side, Contusion of arm, right, Contusion of hip, right, Contusion of knee, right Patient Disposition: Home, Self-Care Instructions: Contusion in Adults (ED) Additional Instructions: your x-ray show no fractures take Motrin or Tylenol if able as needed for pain apply ice to the area follow-up with your doctor for any continued symptoms Prescriptions: No Action fexofenadine 180 mg tablet 180 mg PO DAILY 90 Days Qty: 90 2RF (DME) Adult pull-ups See Rx Instructions .Route .MEDSUPPLY Qty: 90 0RF Rx Instructions: As directed cholecalciferol (vitamin D3) 25 mcg (1,000 unit) capsule 25 mcg PO DAILY Qty: 90 3RF sumatriptan succinate 25 mg tablet See Rx Instructions PO .COMPLEX Qty: 30 0RF Rx Instructions: take 1 tab at onset of headache; if no relief may repeat 1 tab after at least 2 hrs; max = 4 tabs/24 hr PO trazodone 50 mg tablet 50 mg PO BEDTIME Qty: 90 0RF furosemide [Lasix] 20 mg tablet 40 mg PO Q OTHER DAY Qty: 20 3RF naproxen 250 mg tablet 250 mg PO BID PRN (Reason: pain) Qty: 30 3RF Breztri Aerosphere 160-9-4.8 mcg/actuation HFA aerosol inhaler 2 inh inhalation BID Qty: 1 6RF acetaminophen [Tylenol Extra Strength] 500 mg tablet 1,000 mg PO Q4-6H PRN albuterol sulfate [Ventolin HFA] 90 mcg/actuation HFA aerosol inhaler 1 inh inhalation Q6H PRN (Reason: shortness of breath or wheezing) Qty: 8.5 0RF Referrals: Marely Allan PA-C [Primary Care Provider, Internal Medicine] Print Language: Yakut
[2025-10-30 11:37] LABS: MANUAL DIFF FLAG NO
[2025-10-30 11:39] LABS: Hematocrit 42.0 % (37.0-47.0); Hemoglobin 13.2 g/dl (12.0-16.0); Imm Gran Abs Auto 0.01 X10*3/uL (0.00-0.03); Imm Gran Pct Auto 0.2 % (0.0-0.4); Lymphocytes Absolute Auto 2.2 X10*3/uL (1.2-4.9); Mean Corpuscular HGB Conc 31.4 g/dl (31.0-35.0); Mean Corpuscular Hemoglobin 29.3 pg (27.0-33.0); Mean Corpuscular Volume 93.1 fL (80.0-98.0); NRBC Abs Auto 0.000 X10*3/uL (0.0-0.012); NRBC Pct Auto 0.0 /100WBC (0.0-0.2); Platelet Count 284 X10*3/uL (160-400); Red Blood Count 4.51 X10*6/uL (4.20-5.50); White Blood Count 6.0 X10*3/uL (4.8-10.8)
[2025-10-30 11:50] LABS: Anion Gap 11 (12-20); Blood Urea Nitrogen 15 mg/dL (9-16); Calcium 9.7 mg/dL (8.4-10.2); Carbon Dioxide 29 mmol/L (22-29); Chloride 103 mmol/L (96-108); Creatinine Clr Calc Pharmacy 120.4; Estimated Glomerular Filt Rate > 60; Potassium 4.2 mmol/L (3.3-5.1); Sodium 139 mmol/L (135-145)
--- OUTSIDE RECORDS SUMMARY | 2025-10-30 12:33 | XMS_ITS | Clinical Summary ---
Author Organization [facility] ity Address [address] [place] [address] Care Team Providers Care Financial Business Analyst Name Role Phone Unavailable Primary Care [...]
[2025-10-30 13:19] VITALS: BP 134/70; PULSE 61; PULSE 67; RESP 17; O2SAT 96
[2025-10-30 14:31] VITALS: BP 136/65; PULSE 66; RESP 20; O2SAT 96
[2025-10-30 16:41] VITALS: BP 136/65; PULSE 66; RESP 20; TEMP 36.8; O2SAT 96
== END 2025-10-30 16:42 | disposition home or self-care (01) ==
PROVIDERS: Physician Assistant Medical; Emergency Provider Emergency Medicine
DX: S40.021A Contusion of right upper arm, initial encounter (principal); S80.01XA Contusion of right knee, initial encounter; S20.211A Contusion of right front wall of thorax, initial encounter; I10 Essential (primary) hypertension; M51.369 Other intervertebral disc degeneration, lumbar region without mention of lumbar back pain or lower extremity pain; E66.9 Obesity, unspecified; Z68.42 Body mass index [BMI] 45.0-49.9, adult; W18.39XA Other fall on same level, initial encounter; Y93.89 Activity, other specified; Y92.89 Other specified places as the place of occurrence of the external cause; Y99.8 Other external cause status; Z79.899 Other long term (current) drug therapy
CPT/HCPCS: 36415; 71101; 73030; 73080; 73564; 80048; 85025; 99283; 99284